=== PATIENT | female | born 1945 | race Caucasian/White ===

== ENCOUNTER → 2018-01-17 12:59 | Outpatient (CLI) | payer MEDICARE, OTHER, SELFPAY ==
--- NOTE | 2018-01-17 | DI.NM.S_ITS ---
PROCEDURE: NM RENAL FUNCTION W LASIX RADIOPHARMACEUTICAL: 9.7 mCi Tc-99m MAG3 IV and 40 mg furosemide IV. INDICATIONS: HYDRONEPHOSIS TECHNIQUE: The patient was hydrated orally before the examination was begun. After intravenous administration of Tc-99m MAG3, posterior abdominal radionuclide angiogram and sequential (1 minute each frame) renal images were obtained. A time-activity curve for each kidney was generated and analyzed. To evaluate for obstruction, the patient was given 40 mg furosemide via slow intravenous injection after the start of the examination. Sequential images were obtained for up to an additional 20 minutes. COMPARISON: [facility], MR, L-SPINE WITHOUT CONTRAST, 08/07/2012, 13:30. [facility], CT, KIDNEY/ URETER/BLADDER, 04/08/2017, 16:51. [facility], US, ABDOMEN COMPLETE, 11/15/2017, 7:27. FINDINGS: Perfusion: There is normal vascular flow to both kidneys. Morphology: Both kidneys are normal in size and shape. The right renal pelvis is mildly dilated. The left renal pelvis is nondilated. The ureters and bladder fill with tracer, and appear normal. Function: Both kidneys demonstrate normal cortical tracer uptake, with [id number] activity ranging from 3 to 5 minutes. The right kidney contributes 44% of total renal function. The left kidney contributes 56% of total renal function. Lasix stimulation: After diuretic administration, there is prompt clearance of tracer activity from the renal collecting systems in both kidneys. The half-time of emptying of tracer activity from the right pelvicaliceal system is 7.1 minutes. The half-time of emptying from the left pelvicaliceal system is a 8.7 minutes. Normal emptying half-times are less than 10 minutes; borderline ranges are from 10 to 20 minutes. IMPRESSION: 1. Mildly dilated right renal collecting system. The T1/2 after furosemide administration is normal, arguing against right renal obstruction. 2. Normal left renal function. 3. Right kidney contributes 44% of total renal function; left kidney contributes 56% of total renal function. Dictated by: Chitra Graff M.D. on 01/17/2018 at 15:06 Approved by: Chitra Graff M.D. on 01/17/2018 at 15:19
--- NOTE | 2018-01-17 13:03 | DI.RAD.S_ITS ---
PROCEDURE: XR HIP W PEL IF DONE RT 2V INDICATIONS: 72 year-old female with right hip pain after fall. TECHNIQUE: AP pelvis with lateral view(s) of the right hip(s). COMPARISON: None. FINDINGS: Bones: No fractures or dislocations. Pelvic ring appears intact. No hip joint degeneration. No suspicious bony lesions. Soft tissues: The visualized bowel gas pattern is normal. No suspicious soft tissue calcifications. IMPRESSION: No acute bony injuries of the right hip region. Dictated by: Jasiel Mota M.D. on 01/17/2018 at 14:20 Approved by: Jasiel Mota M.D. on 01/17/2018 at 14:21
== END ==
PROVIDERS: Family Provider Family Medicine; PCP Family Medicine; Visit Provider Specialist
DX: M25.551 Pain in right hip (principal)
CPT/HCPCS: 73502; 78708; A9562

== ENCOUNTER 2018-01-29 15:13 | Observation (INO) | payer MEDICARE, OTHER, SELFPAY ==
[2018-01-09 13:59] VITALS: BMI 32.8
[2018-01-28] VITALS (13 sets, daily range): BP systolic 106–144; BP diastolic 60–90; PULSE 60–81; RESP 13–18; TEMP 36.1–36.8; O2SAT 92–100; BMI 33.6
--- NOTE | 2018-01-28 | DI.RAD.S_ITS ---
PROCEDURE: XR KNEE LT 1TO2V INDICATIONS: POST OP KNEE FILMS TECHNIQUE: 2 view(s) of the knee acquired. COMPARISON: [facility] MEÑO Mcadams, XR KNEE ARTHRITIC SERIES , 11/15/2017, 11:42. FINDINGS: Bones: Patient is status post left knee joint arthroplasty. Hardware components are in expected positions. Visualized bony structures are intact. Soft tissues: Overlying postoperative changes are noted. IMPRESSION: Expected postsurgical change for left knee arthroplasty. Dictated by: Kalani Hendricks MD, PhD on 01/28/2018 at 14:40 Approved by: Kalani Hendricks MD, PhD on 01/28/2018 at 14:41
[2018-01-28] MEDS: LACTATED RINGERS 1,000 ML 42 ML IV (08:57)
[2018-01-28] MEDS: VANCOMYCIN 1,000 MG/200 ML FROZ.PIGGY 200 MG IV (10:00)
--- NOTE | 2018-01-28 10:17 | SUR.OPER ---
Supine on padded OR bed. Pillow under head, arms secured on padded armboards <90 degree abduction. Safety belt across torso. Non-operative leg secured with tape over blanket over lower leg. Operative leg secured in DeMayo/Aamir positioner. Foam padded brace at thigh of operative leg.
[2018-01-28] MEDS: CEFAZOLIN 2 GM/100 ML FROZ.PIGGY IV ×2 (11:40→21:13)
[2018-01-28] MEDS: BUPIVACAINE 0.25% W/ EPI 50 ML VIAL INJ (12:47)
[2018-01-28] MEDS: BUPIVACAINE LIPOSOME 266 MG/20 ML VIAL SUBCUT (12:48)
[2018-01-28] MEDS: POVIDONE-IODINE 15 ML, SODIUM CHLORIDE 0.9% 250 ML TOP (12:55)
--- NOTE | 2018-01-28 14:47 | PM.OP.1 ---
Operative Date/Time/Diagnoses - Date of procedure: 01/28/18 Time of procedure: 12:47 Pre-op diagnosis: Left knee OA Post-op diagnosis: same Procedure & Clinicians Procedure: Left total knee arthroplasty Indications: The patient has had progressively worsening left knee pain with radiographic changes consistent with arthritis. Non-operative management has failed and the patient has requested total knee replacement. The risks, benefits and alternatives to surgery were discussed with the patient prior to proceeding. Risks discussed included, but were not limited to, failure to relieve pain, stiffness, infection, nerve damage, deep venous thrombosis, pulmonary embolism, stroke, coma, heart attack, permanent paralysis and , as well as the potential need for eventual revision of the prosthetic. Surgeon: Claudia Miramontes Fountain Roller Assembler: Bel Falcon Anesthesia Type: General and Spinal Operative Notes Findings: Severe left knee OA, good stability Closure Type: primary Specimen(s): none sent Implants & Drains: Left total knee Miramontes and Nephew Journey BCS 2 size 4 femur, size 4 tibia, +9 poly, 32 by 7-1/2 mm patella Applied: drain(s) Estimated Blood Loss (mL): 250 Blood products transfused: none Tourniquet time (min): 40 Procedure in detail: The patient was seen in the pre-operative area, where the patient identified the left knee as the operative site and this was marked with my initials. The patient received pre-operative antibiotics, and was taken to the operating room and placed on the operative table in the supine position. After satisfactory anesthesia, a multimedia producer out was performed. The left leg was encircled with a tourniquet about the proximal thigh, and the leg was prepared from the toes to the tourniquet with ChloroPrep in the usual fashion and draped through sterile drapes. The leg was elevated and exsanguinated with Eschmark bandage and the tourniquet inflated to [250] mmHg pressure. The knee was approached through an approximately 18 cm incision centered over the patella and carried into the knee through a medial parapatellar arthrotomy. A Portion of the medial and lateral meniscus was resected. Soft tissue was carefully mobilized around the patella the patella was measured with a caliper. Bone was resected from the patella and the patellar height was reconstituted with up an appropriate sized patellar component. A cover was then placed on the patella. A small amount of additional medial and lateral meniscus was resected. The visionare guide fit well to the distal femur. It looked like an appropriate distal femoral cut and the cut was made without difficulty. The rotation was assessed and the appropriate size femoral guide was placed on the distal femur and finishing cuts were made. There is no evidence of notching. The anterior, posterior and chamfer cuts were then made. The posterior osteophytes and soft tissues were then removed. The posterior capsule was injected with part of a mixture of 60 ml 0.25% Marcaine mixed with 20 ml Exparel for post operative pain control. The remainder of this mixture was injected into the capsule and subcutaneous tissues during cement curing. The tibia was prepared and the visionaire guide fit well to the distal tibia. The rotation was assessed. The patient was placed in extension residual medial and lateral meniscus as well as any residual bone was carefully resected. [No] additional tibia was resected. Hemostasis was achieved especially posteriorly. Additional local was injected into the posterior capsule. The extension gap was assessed and additional releases for gap balancing were performed as necessary. It was checked with the gap grocery store courtesy clerk. The femoral component was trial was placed and the notch was finished. Trial tibial and femoral components were then placed and the knee placed through a range of motion. Range of motion was [0-130], with good stability throughout the range. The trials were then removed, and the tibia was finished. The bone was prepared with pulsatile lavage, and dried with a sponge. Cement was applied and the final prosthetics placed. Excess cement was removed during and after cement curing. A brief Betadine soak was performed. After confirming there was no extruded cement posteriorly, the final tibial insert was placed. The knee was copiously irrigated and the tourniquet deflated. Hemostasis was obtained with the [Aquamantys system]. A drain was placed and brought out superolaterally. The capsule was closed with interrupted # 1 black braided suture. The subcutaneous layer was closed with barbed sutures, and the skin with a running 3-0 V-Lock suture and Surgical glue. An Aquacel Ag dressing was applied and the patient was taken to recovery having tolerated the procedure well. Complications: none Condition: stable Disposition: Acute Care Plan for aftercare: The patient will be maintained on a standard total knee replacement protocol with weight bearing as tolerated. The patient will receive aspirin and sequential compression devices for DVT prophylaxis. The patient will be discharged home when safe for the home environment.
--- NOTE | 2018-01-28 14:54 | SUR.PHASEI ---
stable pacu stay, drank coffee, report called and pt transported to room 216.
--- NOTE | 2018-01-28 14:56 | PM.PREOP ---
Pre-operative Note Interval Note Pre-op Check: History & Physical Reviewed by Physician
--- NOTE | 2018-01-28 14:56 | P.OP_ITS ---
Operative Date/Time/Diagnoses - Date of procedure: 01/28/18 Time of procedure: 12:47 Pre-op diagnosis: Left knee OA Post-op diagnosis: same Procedure & Clinicians Procedure: Left total knee arthroplasty Indications: The patient has had progressively worsening left knee pain with radiographic changes consistent with arthritis. Non-operative management has failed and the patient has requested total knee replacement. The risks, benefits and alternatives to surgery were discussed with the patient prior to proceeding. Risks discussed included, but were not limited to, failure to relieve pain, stiffness, infection, nerve damage, deep venous thrombosis, pulmonary embolism, stroke, coma, heart attack, permanent paralysis and , as well as the potential need for eventual revision of the prosthetic. Surgeon: Claudia Miramontes Communication Spec: Bel Falcon Anesthesia Type: General and Spinal Operative Notes Findings: Severe left knee OA, good stability Closure Type: primary Specimen(s): none sent Implants & Drains: Left total knee Miramontes and Nephew Journey BCS 2 size 4 femur, size 4 tibia, +9 poly, 32 by 7-1/2 mm patella Applied: drain(s) Estimated Blood Loss (mL): 250 Blood products transfused: none Tourniquet time (min): 40 Procedure in detail: The patient was seen in the pre-operative area, where the patient identified the left knee as the operative site and this was marked with my initials. The patient received pre-operative antibiotics, and was taken to the operating room and placed on the operative table in the supine position. After satisfactory anesthesia, a multimedia manager out was performed. The left leg was encircled with a tourniquet about the proximal thigh, and the leg was prepared from the toes to the tourniquet with ChloroPrep in the usual fashion and draped through sterile drapes. The leg was elevated and exsanguinated with Eschmark bandage and the tourniquet inflated to [250] mmHg pressure. The knee was approached through an approximately 18 cm incision centered over the patella and carried into the knee through a medial parapatellar arthrotomy. A Portion of the medial and lateral meniscus was resected. Soft tissue was carefully mobilized around the patella the patella was measured with a caliper. Bone was resected from the patella and the patellar height was reconstituted with up an appropriate sized patellar component. A cover was then placed on the patella. A small amount of additional medial and lateral meniscus was resected. The visionare guide fit well to the distal femur. It looked like an appropriate distal femoral cut and the cut was made without difficulty. The rotation was assessed and the appropriate size femoral guide was placed on the distal femur and finishing cuts were made. There is no evidence of notching. The anterior, posterior and chamfer cuts were then made. The posterior osteophytes and soft tissues were then removed. The posterior capsule was injected with part of a mixture of 60 ml 0.25% Marcaine mixed with 20 ml Exparel for post operative pain control. The remainder of this mixture was injected into the capsule and subcutaneous tissues during cement curing. The tibia was prepared and the visionaire guide fit well to the distal tibia. The rotation was assessed. The patient was placed in extension residual medial and lateral meniscus as well as any residual bone was carefully resected. [No] additional tibia was resected. Hemostasis was achieved especially posteriorly. Additional local was injected into the posterior capsule. The extension gap was assessed and additional releases for gap balancing were performed as necessary. It was checked with the gap account maintenance representative. The femoral component was trial was placed and the notch was finished. Trial tibial and femoral components were then placed and the knee placed through a range of motion. Range of motion was [ 0-130], with good stability throughout the range. The trials were then removed, and the tibia was finished. The bone was prepared with pulsatile lavage, and dried with a sponge. Cement was applied and the final prosthetics placed. Excess cement was removed during and after cement curing. A brief Betadine soak was performed. After confirming there was no extruded cement posteriorly, the final tibial insert was placed. The knee was copiously irrigated and the tourniquet deflated. Hemostasis was obtained with the [Aquamantys system]. A drain was placed and brought out superolaterally. The capsule was closed with interrupted # 1 black braided suture. The subcutaneous layer was closed with barbed sutures, and the skin with a running 3 -0 V-Lock suture and Surgical glue. An Aquacel Ag dressing was applied and the patient was taken to recovery having tolerated the procedure well. Complications: none Condition: stable Disposition: Acute Care Plan for aftercare: The patient will be maintained on a standard total knee replacement protocol with weight bearing as tolerated. The patient will receive aspirin and sequential compression devices for DVT prophylaxis. The patient will be discharged home when safe for the home environment.
[2018-01-28] MEDS: LACTATED RINGERS 1,000 ML 125 ML IV (16:03)
--- NOTE | 2018-01-28 16:13 | PC.NURSE ---
admitted to acute care rm 216, denies pain, reported numbness to bilateral legs due to epidural but stating sensation and movement to be coming back. Able to wiggle toes on demand, circulation and movement intact. Educated to room and call light, belongings within reach. Hemovac present, and clamped - clamp removed at 1545 per order.
[2018-01-28] MEDS: SENNOSIDES 8.6 MG TABLET 17.2 MG PO (21:14)
[2018-01-28] MEDS: METOPROLOL 25 MG TABLET PO (21:16)
[2018-01-28] MEDS: DOCUSATE 100 MG CAPSULE PO (21:16)
[2018-01-28] MEDS: clonazePAM 0.5 MG TABLET 1 MG PO (21:28)
--- NOTE | 2018-01-28 23:41 | PC.NURSE ---
Sandra shift- Pt did not receive Aspirin 81mg. Unable to document on EMAR. Pt soes take this medication at home, but reports allergy to NSAIDs. Pt reports takes 375mg ASA along with carafate for pain, at home. Pt refused scheduled tylenol, reports does not work for me. Denies pain this shift. Using bed pain to boid clear yellow urine. L wrist LR @ 125 along with ABO's. Left knee aquacell/conrado wrap CDI. SCD's on. Advanced diet to reg for dinner, tolerated well. Call light in reach.
[2018-01-28] MEDS: OXYCODONE IR 10 MG TABLET PO (23:47)
[2018-01-29] MEDS: LACTATED RINGERS 1,000 ML 125 ML IV (00:17)
--- NOTE | 2018-01-29 01:21 | PC.NURSE ---
Pt reporting L knee pain 4/10. Medicated with Percolone. Orho checks with good CMS. Drsg C,D,I to L knee. Voiding per bedpan. See assessment. Pt reorting pain relief to 0/10 after analgesia.
[2018-01-29 03:27] VITALS: BP 101/56; PULSE 68; RESP 16; TEMP 36.6; O2SAT 95
[2018-01-29] MEDS: OXYCODONE IR 10 MG TABLET PO ×3 (03:39→21:18)
[2018-01-29] MEDS: CEFAZOLIN 2 GM/100 ML FROZ.PIGGY IV (03:41)
--- NOTE | 2018-01-29 05:43 | PC.NURSE ---
Pt declines scheduled Acetaminophen stating that this analgesia does not work for her. Pt states that Percolone is reducing surgical pain and joint pain in hip and neck from recent fall at home.
[2018-01-29 06:15] LABS: Hematocrit 36.4 % (36-46); Hemoglobin 12.3 g/dL (12.0-16.0)
[2018-01-29 07:30] VITALS: BP 145/85; PULSE 79; RESP 16; TEMP 36.3; O2SAT 96
--- NOTE | 2018-01-29 08:22 | P.PN_ITS ---
Subjective Date Patient Seen: 01/29/18 Time Patient Seen: 08:19 Interval history: POD #1 status post left total knee arthroplasty with Dr. Miramontes. She did have some increased pain over the night. She has not been up with physical therapy it. She has some acid reflux after eating dinner, and requesting some medication. She has been urinating well. She still has drain in place. Exam Vital Signs (past 8 hours): Vital Signs - 8 hr 3 01/29/18 03:27 Temperature 97.8 F Pulse Rate 68 Respiratory Rate 16 Blood Pressure 101/56 L Pulse Oximetry 95 Pulse Oximetry 95 Oxygen Delivery Method Room Air Narrative Exam Narrative: Patient lying in bed in no acute distress. She is alert and oriented x3. Calves are soft, compressible, nontender bilaterally. Pulses are symmetrical. Left knee dressing CDI, Coban in place. Hemovac drain in place. Sensation intact to light touch throughout bilateral lower extremities. She is able to actively dorsiflex and plantar flex. Objective Labs Result Diagrams: 01/29/18 05:42 Labs: Laboratory Results - last 24 hr 01/29/18 05:42 Hgb 12.3 Hct 36.4 Assessment & Plan Post-op (1) Fibromyalgia: Onset Date: 01/27/16 Current Visit: No Status: None (2) S/P total knee arthroplasty: Current Visit: Yes Status: Acute Postoperative Procedures Operation Date: 01/28/18 10:45 Actual Procedures Side Surgeon p Total Knee Arthroplasty Left Claudia Miramontes MD POD #1 status post left total knee arthroplasty with Dr. Miramontes. Patient will mobilize with PT today. Continue ASA for DVT prophylaxis. Will start antacid. DC Hemovac once drainage output is less than 50 mL. Patient will likely DC in next 1-2 days once mobilizing safely, and adequate pain control. Time Spent With Patient less than 15 minutes
[2018-01-29] MEDS: ASPIRIN EC 81 MG TABLET PO ×2 (09:19→21:18)
[2018-01-29] MEDS: CHOLECALCIFEROL (VITAMIN D3) 1,000 UNIT TABLET 2000 UNIT PO (09:19)
[2018-01-29] MEDS: METOPROLOL 25 MG TABLET PO ×2 (09:20→21:18)
[2018-01-29] MEDS: HYDROCODONE/ACET 5/325 TABLET 1 TAB PO (09:20)
[2018-01-29] MEDS: DOCUSATE 100 MG CAPSULE PO ×2 (09:20→21:18)
[2018-01-29] MEDS: clonazePAM 0.5 MG TABLET 1 MG PO (09:21)
[2018-01-29 12:10] VITALS: BP 131/69; PULSE 69; RESP 16; TEMP 37; O2SAT 94
--- NOTE | 2018-01-29 12:20 | PT.IIE ---
Current Diagnoses Unilateral primary osteoarthritis, left knee (01/28/18) Fibromyalgia (01/28/18) Presence of unspecified artificial knee joint (01/28/18) Surgery Performed Operation Date: 01/28/18 10:45 Actual Procedures p Total Knee Arthroplasty(Left) - Claudia Miramontes MD Surgical History (Last Updated 01/09/18 @ 14:31 by Gwen Fan RN) H/O arthroscopic knee surgery (Acute) Hx of thumb surgery (Acute) S/P foot surgery, right (Acute) Status post arthroscopy Status post hysterectomy Status post tubal ligation Medical History (Last Updated 01/09/18 @ 14:31 by Gwen Fan RN) Anxiety (Acute) Bilateral cataracts (Acute) Bronchitis (Acute) Compression fracture (Acute) Compression fracture of body of thoracic vertebra (Acute) Gastritis (Acute) Myocardial infarction (Acute) Numbness (Acute) Spinal stenosis (Acute) Physical Therapy Inpatient Evaluation/Re-Eval M1 PT/OT-IP Prior Functional Status Start: 01/29/18 12:11 Freq: NEEDED Status: Active Protocol: Document 01/29/18 12:11 AB (Rec: 01/29/18 12:20 AB [id number]) Medical Review Prior Functional Status Medical History Reviewed Yes Mobility and Gait pt stated that she is independent with all mobilities and ambulation without AD Social History Household Members spouse Living Arrangements House Number of Floors (Floors) One Floor Number of Stairs To Enter/Railing? has 2 small steps to enter: one step with R rail and another threshold step Home Environment Standard Height Toilet Walk in Shower Home Equipment Front Wheel Walker Straight Cane Shower Seat with Backrest Hand Held Shower Grab Bars In Shower Employment Status Retired M2 PT-IP Current Condition Start: 01/29/18 12:11 Freq: NEEDED Status: Active Protocol: Document 01/29/18 12:11 AB (Rec: 01/29/18 12:20 AB [id number]) Physical Therapy Current Condition Current Condition Evaluation Date 01/29/18 Treatment Diagnosis s/p L TKA; difficulty in ambulation Onset Date 01/28/18 M3 PT-IP Subjective Start: 01/29/18 12:11 Freq: NEEDED Status: Active Protocol: Document 01/29/18 12:11 AB (Rec: 01/29/18 12:20 AB [id number]) Subjective Physical Therapy Visit Type Type Initial Evaluation Visit Start Time 10:28 Visit Stop Time 11:15 Total Visit Minutes 47 Number of CERAMIC WORKER Visits 0 Physical Therapy Visit Comments Patient Comments pt agreeable to do therapy Therapy Pain Assessment Pain When Pain Assessed During Mobility Pain Present Pain Present Pain Reported Location Right Knee Intensity 7 Scale Used Numeric (1 - 10) Pain Management Techniques Apply Cold Re-positioning Timing of Activity with Medications M4 PT-IP Mobility and Gait Start: 01/29/18 12:11 Freq: NEEDED Status: Active Protocol: Document 01/29/18 12:11 AB (Rec: 01/29/18 12:20 AB [id number]) PT-Bed Mobility Assessment Supine to Sit Supine to Sit Standby Assistance Sit to Supine Sit to Supine Minimal Assistance PT-Transfer Assessment Sit to and From Stand Sit to and from Stand Maximum Assistance Equipment Transfer Assistive Device Gait Belt Front Wheeled Walker Transfers Transfer Destination Chair Toilet Gait Assessment Gait Gait Assistance Required: Moderate Assistance Distance (Feet) (feet) 20 Able to Maintain Weight Bearing Status Yes During Gait Assistive Devices Assistive Device Gait Belt Front Wheeled Walker Gait Deviations General Gait Pattern Antalgic Decreased Stride Length Decreased Feet Clearance Factors Limiting Gait Function Factors Limiting Gait Function Decreased Activity Tolerance Decreased Strength Limited Range of Motion Pain Poor Balance Poor Safety Awareness PT-Balance Assessment Sitting Balance and Reactions Static Sitting Balance Ability Good Dynamic Sitting Balance Ability Good Standing Balance and Reactions Static Standing Balance Ability Fair Dynamic Standing Balance Ability Fair M5 PT-IP Objective Assessments Start: 01/29/18 12:11 Freq: NEEDED Status: Active Protocol: Document 01/29/18 12:11 AB (Rec: 01/29/18 12:20 AB [id number]) Orientation Orientation/Cognition Level of Alertness Alert Orientation Name Place Situation Gross Range of Motion Lower Extremity ROM Assessment Left Impaired Strength Lower Extremity Strength Assessment Bilaterally Impaired M6 PT-IP Treatment Start: 01/29/18 12:11 Freq: NEEDED Status: Active Protocol: Document 01/29/18 12:11 AB (Rec: 01/29/18 12:20 AB [id number]) Physical Therapy Treatment Education Education Provided Precautions Weight Bearing Status Post-Op Packet Safety M7 PT-IP Assessment and Plan Start: 01/29/18 12:11 Freq: NEEDED Status: Active Protocol: Document 01/29/18 12:11 AB (Rec: 01/29/18 12:20 AB [id number]) PT Summary Assessment and Plan Potential Rehabilitation Potential Fair Status of Condition at Evaluation Evolving Summary Impairments Pain ROM Strength Balance Bed Mobility Transfers Gait Activity Tolerance Assessment Summary pt requiring one person assist with mobility. pt wants to be more independent prior to d /c and stated thta she wants to be sure she can take care of herself when spouse is not around. will conduct caregiver training when appropriate. Goals Bed Mobility Goal Standby Assistance Transfer Goal Standby Assistance Gait Goal Standby Assistance Gait Distance 100 Other Goals up/down 2 steps with R rail ascending Frequency of Treatment Frequency Of Treatment Twice a Day Treatment Plan Physical Therapy Treatment Plan Bed Mobility Training Transfer Training Gait Training Therapeutic Exercise Balance Retraining Post Op Education Discharge Planning Hot or Cold Pack Neuromuscular Re-ed Coordination Retraining Manual Therapy Recommendations To Nursing Amount of Assist Needed 1 Person Assist Discharge Recommendations PT Discharge Recommendations Home with Assistance Outpatient PT Provider Visit Care Team Role Provider Type Doreen Chakraborty MD Family Provider Physician Primary Care Provider Specialty: Family Practice Claudia Miramontes MD Attending Provider Physician Specialty: Orthopedic Surgery
--- NOTE | 2018-01-29 13:33 | CM.DANOTE ---
Addendum entered by Terri Gold LPN 01/29/18 13:48: ([facility] [place] and OT are ordered. Pt reports she has a great deal of pain today and is not yet ready for a d/c to home. She will be staying on until tomorrow. Her has not yet worked on any caregiver training. (he appears supportive but perhaps a bit frail). Pt has been working with Out[facility] and [facility] in [place] for years and has Saturday and Saturday appts all set up, to start 02/04. Have discussed case with Dr. Miramontes this afternoon. P: home when stable for same. Original Note: DCP: assessment: case received, EMR reviewed and met with pt and her . Introduced self and role. DCP template completed with info currently available. Pt is a 72 year old female who admitted yesterday for a planned L TKA. Surgeon: Aleksander Miramontes PCP: Dr. Chakraborty Payer: Medicare and [employer]. UR YSABEL Beard confirms OUTPT/Bed ([place]
[2018-01-29] MEDS: ACETAMINOPHEN 325 MG TABLET 650 MG PO ×2 (14:42→21:18)
[2018-01-29 15:20] VITALS: BP 113/71; PULSE 61; RESP 16; TEMP 36.2
--- NOTE | 2018-01-29 16:25 | PT.IPTN ---
Current Diagnoses Unilateral primary osteoarthritis, left knee (01/29/18) Fibromyalgia (01/29/18) Presence of unspecified artificial knee joint (01/29/18) Surgery Performed Operation Date: 01/28/18 10:45 Actual Procedures p Total Knee Arthroplasty(Left) - Claudia Miramontes MD Physical Therapy Treatment Note M2 PT-IP Current Condition Start: 01/29/18 12:11 Freq: NEEDED Status: Active Protocol: Document 01/29/18 12:11 AB (Rec: 01/29/18 12:20 AB [id number]) Physical Therapy Current Condition Current Condition Evaluation Date 01/29/18 Treatment Diagnosis s/p L TKA; difficulty in ambulation Onset Date 01/28/18 M3 PT-IP Subjective Start: 01/29/18 12:11 Freq: NEEDED Status: Active Protocol: Document 01/29/18 15:30 GGD (Rec: 01/29/18 16:24 GGD [id number]) Subjective Physical Therapy Visit Type Type Treatment Note Visit Start Time 14:55 Visit Stop Time 15:30 Total Visit Minutes 35 Number of PBX TEACHER Visits 1 Physical Therapy Visit Comments Patient Comments Pt needs to use the bathroom Therapy Pain Assessment Pain When Pain Assessed At Rest Pain Present Pain Present Pain Reported Location Right Knee Intensity 3 Scale Used Numeric (1 - 10) Description Burning M4 PT-IP Mobility and Gait Start: 01/29/18 12:11 Freq: NEEDED Status: Active Protocol: Document 01/29/18 15:30 GGD (Rec: 01/29/18 16:24 GGD [id number]) PT-Bed Mobility Assessment Supine to Sit Supine to Sit Standby Assistance Sit to Supine Sit to Supine Minimal Assistance PT-Transfer Assessment Sit to and From Stand Sit to and from Stand Minimal Assistance 1 Person Assistance Use of Upper Extremities Equipment Transfer Assistive Device Gait Belt Front Wheeled Walker Transfers Transfer Destination Bed Toilet Transfer Ability Level of Assist Contact Guard Assistance 1 Person Assistance Gait Assessment Gait Gait Assistance Required: Moderate Assistance Distance (Feet) (feet) 20 Able to Maintain Weight Bearing Status Yes During Gait Assistive Devices Assistive Device Gait Belt Front Wheeled Walker Gait Deviations General Gait Pattern Antalgic Decreased Stride Length Decreased Feet Clearance Factors Limiting Gait Function Factors Limiting Gait Function Decreased Activity Tolerance Decreased Strength Limited Range of Motion Pain Poor Balance Poor Safety Awareness M5 PT-IP Objective Assessments Start: 01/29/18 12:11 Freq: NEEDED Status: Active Protocol: Document 01/29/18 12:11 AB (Rec: 01/29/18 12:20 AB [id number]) Orientation Orientation/Cognition Level of Alertness Alert Orientation Name Place Situation Gross Range of Motion Lower Extremity ROM Assessment Left Impaired Strength Lower Extremity Strength Assessment Bilaterally Impaired M6 PT-IP Treatment Start: 01/29/18 12:11 Freq: NEEDED Status: Active Protocol: Document 01/29/18 15:30 GGD (Rec: 01/29/18 16:24 GGD [id number]) Physical Therapy Treatment Exercises Exercises Ankle Pumps Gluteal Sets Quad Sets Heel Slides Short Arc Quads M7 PT-IP Assessment and Plan Start: 01/29/18 12:11 Freq: NEEDED Status: Active Protocol: Document 01/29/18 15:30 GGD (Rec: 01/29/18 16:24 GGD [id number]) PT Summary Assessment and Plan Summary Assessment Summary PT needed less assist with sit to stand and bed mobility. She had increase pain with mobility and unable to tolerated progression of gait. Frequency of Treatment Frequency Of Treatment Twice a Day Treatment Plan Other Recommendations and Next Treatment gait, bed mobility and stairs Focus before D/C Recommendations To Nursing Amount of Assist Needed 1 Person Assist Discharge Recommendations PT Discharge Recommendations Home with Assistance Outpatient PT
[2018-01-29 20:18] VITALS: BP 128/75; PULSE 76; RESP 18; TEMP 37.2
[2018-01-29] MEDS: SENNOSIDES 8.6 MG TABLET 17.2 MG PO (21:18)
[2018-01-30 00:15] VITALS: BP 97/63; PULSE 69; RESP 14; TEMP 36.3; O2SAT 94
[2018-01-30] MEDS: clonazePAM 0.5 MG TABLET 1 MG PO ×2 (00:46→09:43)
[2018-01-30] MEDS: OXYCODONE IR 10 MG TABLET PO ×4 (01:11→13:01)
--- NOTE | 2018-01-30 04:20 | PC.NURSE ---
at aprx. 0030 pt got self out of bed after awakening from sleep with urgent feeling to urinate and did not want to get bed wet. she had turned recreation teacher light but both assigned RN and SITE RELIABILITY ENGINEER were busy in other patient rooms. pt had turned on her call light but bed alarm had not been set. Pt states waking up and just thinking I need to get to the bathroom! and then got self up and amb w/o FWW into BR, leaking urine on the way there, states she slipped on the wet floor on the way out of the BR landing on her knees, mainly on the right. she then report scooted myself to the chair and used it to stand up and walk over to the bed. Pt found sitting in her bed by SITE RELIABILITY ENGINEER w/RN shortly after. No outward s/s of injury noted,pt denies incr'd or new area of pain; but tearful and embarrassed that she had fallen and fearful that she may have injured her operative knee. no change in rom of L knee,no incr'd pain to right knee. pt request her anxiety med and medicated w/1mg clonopin per prn order. ice pack placed applied to l knee, medicated w/10mg oxycodone per order for 6-7/10 pain(same rating as since as it has been prior to fall. bed alarm set,reminded to call, bsc used instead of amb all the way to br. ice pack applied to knee, calf scd's placed, mateo pad in place for pt comfort. notified both coordinator, Ena and MD recreation teacher, Radha Coleman of incident.
[2018-01-30 05:07] VITALS: BP 136/79; PULSE 69; RESP 16; TEMP 36.1; O2SAT 95
[2018-01-30] MEDS: ACETAMINOPHEN 325 MG TABLET 650 MG PO (05:16)
[2018-01-30 08:30] VITALS: BP 132/68; PULSE 72; RESP 16; TEMP 36.4; O2SAT 94
[2018-01-30] MEDS: CHOLECALCIFEROL (VITAMIN D3) 1,000 UNIT TABLET 2000 UNIT PO (09:42)
[2018-01-30] MEDS: DOCUSATE 100 MG CAPSULE PO (09:42)
[2018-01-30] MEDS: ASPIRIN EC 81 MG TABLET PO (09:42)
[2018-01-30] MEDS: METOPROLOL 25 MG TABLET PO (09:42)
--- NOTE | 2018-01-30 10:09 | PM.DS.1 ---
History of Present Illness Date Patient Seen: 01/30/18 Time Patient Seen: 10:00 Chief complaint: *OPB* [id number] LEFT TOTAL KNEE ARTHROPLASTY *OPB* Narrative: Patient is status post left TKA postop day 2. She is doing well, however, she had an unwitnessed fall overnight. No bed alarm was on. Denies any injury during fall. Dressing on knee is clean dry and intact. Hemovac drain has less than 50 cc in it. Patient would like to go home. PT recommendation is home. Pain is controlled and VTE prophylaxis is ASA 81 mg b.i.d. Discharge Providers Date of admission: 01/29/18 15:13 Primary care physician: Doreen Chakraborty MD Consults: 01/28/18 14:51 Consult to Discharge Planning Routine Comment: Consult to Physical Therapy Evaluate & Treat Comment: Physician Instructions: postop TKA protocol Consult to Respiratory Therapy Evaluate & Treat Comment: Physician Instructions: Evaluate and treat 01/30/18 08:32 Consult to Occupational Therapy Evaluate & Treat Comment: Physician Instructions: Evaluate and treat Discharge provider: Janelle Milton PA-C Summary Discharge Diagnosis: Left knee osteoarthritis Hospital Course: Patient is admitted status post left TKA on 01/28/2018. No major events during surgery. Patient did have an unwitnessed fall early on the morning of 01/30/2018. Patient was uninjured at that time. Patient cleared by PT to go home. Ready for discharge on 01/30/2018. Status at Discharge Cognitive/behavioral status at discharge: Alert and oriented x4. Functional status at discharge: uses cane/walker Overall status at discharge: patient is progressing back to baseline Time Spent with Patient Less than 30 minutes Exam Vital Signs (past 8 hours): Vital Signs - 8 hr 01/30/18 05:07 01/30/18 08:30 Temperature 97 F L 97.6 F Pulse Rate 69 72 Respiratory Rate 16 16 Blood Pressure 136/79 H 132/68 H Pulse Oximetry 95 94 Pulse Oximetry 94 Oxygen Delivery Method Room Air Oxygen Flow Rate 0 Narrative Exam Narrative: Patient is well-developed well-nourished in no acute distress. Patient alert oriented x3. On exam patient surgical dressing on left knee is clean dry and intact calf is soft and supple. She has full range of motion of the ankle and foot. Hemovac is less than 50 mL ouput. She is neurovascularly intact in left lower extremity. Objective Labs Result Diagrams: 01/29/18 05:42 Discharge Plan Discharge Plan Patient Disposition: Home, Self-Care Discharge comment: d/c once cleared by PT Discharge Med Rec/Prescriptions Prescriptions: New aspirin 81 mg Tablet,Delayed Release (Dr/Ec) 81 mg PO BID Qty: 0 RF: 0 hydrocodone-acetaminophen 5-325 mg Tablet 1 tab PO Q4HR PRN (Reason: Pain, Moderate) Qty: 0 RF: 0 ondansetron 4 mg Tablet,Disintegrating 4 mg PO Q8HR PRN (Reason: Nausea) Qty: 0 RF: 0 Continue cholecalciferol (vitamin D3) [Vitamin D3] 2,000 UNIT tablet 1 tab PO QDAY Qty: 90 RF: 3 calcium citrate-vitamin D3 [Citracal + D Petites] 950 MG/250 IU tablet 1 tab PO QDAY Qty: 90 RF: 3 black cohosh root extract 40 MG capsule 500 mg PO DAILY Qty: 0 RF: 0 [D-Mannose/Cranberry] 1 dose PO DIRECTED Qty: 0 RF: 0 [garden of life ] 1 dose PO DIRECTED Qty: 0 RF: 0 metoprolol tartrate 25 mg tablet 25 mg PO BID Qty: 60 RF: 2 hydrocodone-acetaminophen [[place]] 5-325 mg tablet 1 tab PO QDAY Qty: 30 RF: 0 clonazepam 1 mg tablet 0.5 - 1 tab PO BID PRN (Reason: anxiety) RF: 0 albuterol sulfate [Ventolin HFA] 90 MCG/PUFF HFA aerosol inhaler 1 - 2 puff INH EVERY 4-6 HR PRN (Reason: sob) RF: 0 sucralfate 1 GM tablet 1 gm PO ACHS PRN (Reason: Nausea) RF: 0 Discontinued aspirin 325 mg Tablet 325 mg PO DAILY RF: 0 Follow up/Referrals: [facility] [Provider Group] - 02/03/18 1:00 pm (with Kalyn Jack at the [email or web address] office.) Provider Discharge Instructions Diet: Diet as Tolerated Activity: WBAT as tolerated, elevate operative leg while sitting. Use walker until weaned off of it by PT Cold/Heat Therapy: Apply ice for 20 minutes at a time hourly while awake. Wound Care Report to your healthcare provider any signs of infection, such as:: chills, fever, night sweats, increased pain and unusual drainage Visit Report/Discharge Packet Instructions: DI for Knee Replacement Discharge Data Primary Care Provider: Doreen Chakraborty Attending Provider: Claudia Miramontes Admit Date/Time: 01/29/18 15:13 Quality VTE Deep Vein Thrombosis/Pulmonary Embolism Present on Admission: No
--- NOTE | 2018-01-30 10:14 | P.DS_ITS ---
History of Present Illness Date Patient Seen: 01/30/18 Time Patient Seen: 10:00 Chief complaint: *OPB* [id number] LEFT TOTAL KNEE ARTHROPLASTY *OPB* Narrative: Patient is status post left TKA postop day 2. She is doing well, however, she had an unwitnessed fall overnight. No bed alarm was on. Denies any injury during fall. Dressing on knee is clean dry and intact. Hemovac drain has less than 50 cc in it. Patient would like to go home. PT recommendation is home. Pain is controlled and VTE prophylaxis is ASA 81 mg b.i.d. Discharge Providers Date of admission: 01/29/18 15:13 Primary care physician: Doreen Chakraborty MD Consults: 01/28/18 14:51 Consult to Discharge Planning Routine Comment: Consult to Physical Therapy Evaluate & Treat Comment: Physician Instructions: postop TKA protocol Consult to Respiratory Therapy Evaluate & Treat Comment: Physician Instructions: Evaluate and treat 01/30/18 08:32 Consult to Occupational Therapy Evaluate & Treat Comment: Physician Instructions: Evaluate and treat Discharge provider: Janelle Milton PA-C Summary Discharge Diagnosis: Left knee osteoarthritis Hospital Course: Patient is admitted status post left TKA on 01/28/2018. No major events during surgery. Patient did have an unwitnessed fall early on the morning of 01/30/2018. Patient was uninjured at that time. Patient cleared by PT to go home. Ready for discharge on 01/30/2018. Status at Discharge Cognitive/behavioral status at discharge: Alert and oriented x4. Functional status at discharge: uses cane/walker Overall status at discharge: patient is progressing back to baseline Time Spent with Patient Less than 30 minutes Exam Vital Signs (past 8 hours): Vital Signs - 8 hr 3 01/30/18 05:07 01/30/18 08:30 Temperature 97 F L 97.6 F Pulse Rate 69 72 Respiratory Rate 16 16 Blood Pressure 136/79 H 132/68 H Pulse Oximetry 95 94 Pulse Oximetry 94 Oxygen Delivery Method Room Air Oxygen Flow Rate 0 Narrative Exam Narrative: Patient is well-developed well-nourished in no acute distress. Patient alert oriented x3. On exam patient surgical dressing on left knee is clean dry and intact calf is soft and supple. She has full range of motion of the ankle and foot. Hemovac is less than 50 mL ouput. She is neurovascularly intact in left lower extremity. Objective Labs Result Diagrams: 01/29/18 05:42 Discharge Plan Discharge Plan Patient Disposition: Home, Self-Care Discharge comment: d/c once cleared by PT Discharge Med Rec/Prescriptions Prescriptions: New aspirin 81 mg Tablet,Delayed Release (Dr/Ec) 81 mg PO BID Qty: 0 RF: 0 hydrocodone-acetaminophen 5-325 mg Tablet 1 tab PO Q4HR PRN (Reason: Pain, Moderate) Qty: 0 RF: 0 ondansetron 4 mg Tablet,Disintegrating 4 mg PO Q8HR PRN (Reason: Nausea) Qty: 0 RF: 0 Continue cholecalciferol (vitamin D3) [Vitamin D3] 2,000 UNIT tablet 1 tab PO QDAY Qty: 90 RF: 3 calcium citrate-vitamin D3 [Citracal + D Petites] 950 MG/250 IU tablet 1 tab PO QDAY Qty: 90 RF: 3 black cohosh root extract 40 MG capsule 500 mg PO DAILY Qty: 0 RF: 0 [D-Mannose/Cranberry] 1 dose PO DIRECTED Qty: 0 RF: 0 [garden of life ] 1 dose PO DIRECTED Qty: 0 RF: 0 metoprolol tartrate 25 mg tablet 25 mg PO BID Qty: 60 RF: 2 hydrocodone-acetaminophen [[place]] 5-325 mg tablet 1 tab PO QDAY Qty: 30 RF: 0 clonazepam 1 mg tablet 0.5 - 1 tab PO BID PRN (Reason: anxiety) RF: 0 albuterol sulfate [Ventolin HFA] 90 MCG/PUFF HFA aerosol inhaler 1 - 2 puff INH EVERY 4-6 HR PRN (Reason: sob) RF: 0 sucralfate 1 GM tablet 1 gm PO ACHS PRN (Reason: Nausea) RF: 0 Discontinued aspirin 325 mg Tablet 325 mg PO DAILY RF: 0 Follow up/Referrals: [facility] [Provider Group] - 02/03/18 1:00 pm (with Kalyn Jack at the [employer] office.) Provider Discharge Instructions Diet: Diet as Tolerated Activity: WBAT as tolerated, elevate operative leg while sitting. Use walker until weaned off of it by PT Cold/Heat Therapy: Apply ice for 20 minutes at a time hourly while awake. Wound Care Report to your healthcare provider any signs of infection, such as:: chills, fever, night sweats, increased pain and unusual drainage Visit Report/Discharge Packet Instructions: DI for Knee Replacement Discharge Data Primary Care Provider: Doreen Chakraborty Attending Provider: Claudia Miramontes Admit Date/Time: 01/29/18 15:13 Quality VTE Deep Vein Thrombosis/Pulmonary Embolism Present on Admission: No
--- NOTE | 2018-01-30 10:55 | PT.IPTN ---
Current Diagnoses Unilateral primary osteoarthritis, left knee (01/29/18) Fibromyalgia (01/29/18) Presence of unspecified artificial knee joint (01/29/18) Surgery Performed Operation Date: 01/28/18 10:45 Actual Procedures p Total Knee Arthroplasty(Left) - Claudia Miramontes MD Physical Therapy Treatment Note M2 PT-IP Current Condition Start: 01/29/18 12:11 Freq: NEEDED Status: Active Protocol: Document 01/29/18 12:11 AB (Rec: 01/29/18 12:20 AB [id number]) Physical Therapy Current Condition Current Condition Evaluation Date 01/29/18 Treatment Diagnosis s/p L TKA; difficulty in ambulation Onset Date 01/28/18 M3 PT-IP Subjective Start: 01/29/18 12:11 Freq: NEEDED Status: Active Protocol: Document 01/30/18 10:55 GGD (Rec: 01/30/18 12:31 GGD [email or web address]) Subjective Physical Therapy Visit Type Type Treatment Note Visit Start Time 10:15 Visit Stop Time 10:55 Total Visit Minutes 40 Number of GLOVE STITCHER Visits 2 Physical Therapy Visit Comments Patient Comments Pt states she feels the same, and is sorry about the fall over night. Therapy Pain Assessment Pain When Pain Assessed At Rest Pain Present Pain Present Pain Reported Location Right Knee Intensity 2 Scale Used Numeric (1 - 10) Description Burning M4 PT-IP Mobility and Gait Start: 01/29/18 12:11 Freq: NEEDED Status: Active Protocol: Document 01/30/18 10:55 GGD (Rec: 01/30/18 12:31 GGD [email or web address]) PT-Bed Mobility Assessment Supine to Sit Supine to Sit Standby Assistance Scooting Scooting to Edge of Bed Independent PT-Transfer Assessment Sit to and From Stand Sit to and from Stand Contact Guard Assistance Use of Upper Extremities Equipment Transfer Assistive Device Gait Belt Front Wheeled Walker Transfers Transfer Destination Chair Transfer Ability Level of Assist Contact Guard Assistance 1 Person Assistance Gait Assessment Gait Gait Assistance Required: Contact Guard Assist Distance (Feet) (feet) 50 Assistive Devices Assistive Device Gait Belt Front Wheeled Walker Gait Deviations General Gait Pattern Antalgic Decreased Stride Length Decreased Feet Clearance Factors Limiting Gait Function Factors Limiting Gait Function Decreased Activity Tolerance Decreased Strength Limited Range of Motion Pain Poor Balance Poor Safety Awareness Document 01/30/18 10:55 GGD (Rec: 01/30/18 12:31 GGD [email or web address]) Physical Therapy Treatment Exercises Exercises Ankle Pumps Gluteal Sets Quad Sets Heel Slides Short Arc Quads M7 PT-IP Assessment and Plan Start: 01/29/18 12:11 Freq: NEEDED Status: Active Protocol: Document 01/30/18 10:55 GGD (Rec: 01/30/18 12:31 [email or web address]) PT Summary Assessment and Plan Summary Assessment Summary PT improving with bed mobility and gait she need cues for gait pattern and fatigued quickly. Frequency of Treatment Frequency Of Treatment Twice a Day Treatment Plan Other Recommendations and Next Treatment gait, bed mobility Focus Recommendations To Nursing Amount of Assist Needed 1 Person Assist Discharge Recommendations PT Discharge Recommendations Home with Assistance Outpatient PT
--- NOTE | 2018-01-30 16:25 | OT.IP.TRT ---
Current Diagnoses Unilateral primary osteoarthritis, left knee (01/29/18) Fibromyalgia (01/29/18) Presence of unspecified artificial knee joint (01/29/18) Surgery Performed Operation Date: 01/28/18 10:45 Actual Procedures p Total Knee Arthroplasty(Left) - Claudia Miramontes MD Occupational Therapy Treatment Note M3 OT- IP Subjective and Pain Start: 01/30/18 16:23 Freq: Status: Active Protocol: Document 01/30/18 16:24 MICHAEL (Rec: 01/30/18 16:25 [id number] [id number]) OT- Subjective Occupational Therapy Visit Type Type Administrative Note Notes OT referral received but pt discharged before OT assessment occurred.
== END 2018-01-30 13:18 | disposition home or self-care (01) ==
LOC: OR 15:40
PROVIDERS: Admitting Provider Orthopaedic Surgery; Family Provider Family Medicine; PCP Family Medicine; Visit Provider Orthopaedic Surgery
PROC: 0SRD0JZ Replacement of Left Knee Joint with Synthetic Substitute, Open Approach (ICD-10-PCS; CPT 27447; principal; 2018-01-28 10:45)
DX: M17.12 Unilateral primary osteoarthritis, left knee (principal); M79.7 Fibromyalgia; J45.909 Unspecified asthma, uncomplicated; Z87.891 Personal history of nicotine dependence; F41.9 Anxiety disorder, unspecified; I25.2 Old myocardial infarction
CPT/HCPCS: 27447; 36415; 73560; 85014; 85018; 97110; 97116; 97162; 97530; C1776; G0378; C9290; J0690; J1100; J2250; J2274; J2405; J2704; J3370

== ENCOUNTER → 2018-07-08 12:35 | Outpatient (CLI) | payer MEDICARE, OTHER, SELFPAY ==
[2018-01-28 15:35] VITALS: BMI 33.6
== END ==
PROVIDERS: Family Provider Family Medicine; PCP Family Medicine; Visit Provider Family Medicine
DX: M81.0 Age-related osteoporosis without current pathological fracture (principal); Z78.0 Asymptomatic menopausal state; Z82.62 Family history of osteoporosis; Z87.891 Personal history of nicotine dependence
CPT/HCPCS: 77080

== ENCOUNTER → 2018-09-17 10:51 | Outpatient (CLI) | payer MEDICARE, OTHER, SELFPAY ==
[2018-01-28 15:35] VITALS: BMI 33.6
[2018-09-17 11:33] LABS: Hemoglobin A1C% w Est Avg Glu 5.4 % (4.0-6.0)
[2018-09-17 11:53] LABS: BUN Creatinine Ratio 15.7 (6-22); Blood Urea Nitrogen 11 mg/dL (7-17); Calcium 9.2 mg/dL (8.4-10.2); Carbon Dioxide 25 mmol/L (22-32); Chloride 104 mmol/L (98-107); Cholesterol 181 mg/dL (140-199); Estimated Glomerular Filt Rate > 60.0 mL/min (>60); Glucose 104 mg/dL (80-110); HDL Cholesterol 46 mg/dL (40-60); HEMOLYSIS < 15 (0-50); LDL Cholesterol Calculated 118 mg/dL (<100); Potassium 4.5 mmol/L (3.4-5.1); Sodium 140 mmol/L (137-145); Triglycerides 85 mg/dL (35-150)
[2018-09-17 12:17] LABS: Creatinine Urine Random 39.7 mg/dL
[2018-09-17 12:21] LABS: Microalbumi Creatinin Ratio Ur 15.1 ug/mg CR (<30); Microalbumin Urine Random < 0.6 mg/dL (0-1.6)
== END ==
PROVIDERS: PCP Family Medicine; Visit Provider Family Medicine
DX: R73.09 Other abnormal glucose (principal); Z13.220 Encounter for screening for lipoid disorders
CPT/HCPCS: 36415; 80048; 80061; 82043; 82570; 83036

== ENCOUNTER → 2018-10-30 12:33 | Outpatient (CLI) | payer MEDICARE, OTHER, SELFPAY ==
[2018-01-28 15:35] VITALS: BMI 33.6
--- NOTE | 2018-10-30 12:40 | DI.ECHO.S_ITS ---
[place] [facility]---------+ [facility] +---------+ : : [id number] : : : : [id number] : : : : Phone: [phone]---------+ Echocardiogram Report + + :Name: NATALEE AGGARWAL Study Date: 10/30/2018 Height: 64 in : :[facility] Weight: 200 lb : : Gender: Female BSA: 2.0 m2 : :: 1945 Age: 73 yrs BP: 140/80 mmHg: :Reason For Study: AFIB : : Performed By: Bre Locke : :Referring: LORE AWAD : + + Interpretation Summary 1) Normal left ventricular thickness, size, wall motion, and systolic function (EF 60-65%). 2) Normal right ventricular size and function. 3) Diastolic parameters suggest a pseudonormalization pattern, consistent with probable elevated filling pressures. 4) No significant valvular abnormalities. 5) Compared to the Echo done 10/03/2015, no significant change. Procedure: A two-dimensional transthoracic echocardiogram with color flow and Doppler was performed. The study quality was technically adequate. There is no prior echocardiogram noted for this patient. Rhythm appears to be sinus rhythm with frequent PACs. Left Ventricle: The left ventricle is normal in size, wall thickness, and systolic function without any focal wall motion abnormalities. The ejection fraction is estimated to be 60-65%. Diastolic parameters suggest a pseudonormalization pattern, consistent with probable elevated filling pressures. Right Ventricle: The right ventricle is normal in size and function. Atria: The left atrium is moderately dilated. Right atrial size is normal. There is no Doppler evidence for an interatrial shunt. Mitral Valve: The mitral valve leaflets appear mildly thickened, but open well. There is trace mitral regurgitation. Aortic Valve: The aortic valve is trileaflet. The aortic valve opens well. There is no aortic valve stenosis. No aortic regurgitation is present. Tricuspid Valve: The tricuspid valve is normal in structure and function. There is a trace or physiologic amount of tricuspid regurgitation. Pulmonary artery pressures cannot be estimated because of the lack of a measurable TR jet velocity. Pulmonic Valve: The pulmonic valve is not well seen, but is grossly normal. Great Vessels: The aortic root is normal size. The ascending aorta is mildly enlarged. The aortic arch is normal in size. The pulmonary is not well visualized. The IVC is of normal diameter and collapses greater than 50% with a sniff. This suggests a low right atrial pressure of 3 mm Hg. Pericardium/ Pleura There is no pericardial effusion. There is no pleural effusion. MMode/2D Measurements & Calculations LVIDd: 4.5 cm LVOT diam: 2.2 cm LVIDs: 3.1 cm Ao root diam: 3.3 cm FS: 29.9 % asc Aorta Diam: 3.8 cm IVSd: 0.96 cm Ao Arch Diam (Prox Trans): 2.4 cm LVPWd: 0.83 cm LV chamberlain. diameter/BSA (cm/m^2): 2.3 LV sys. diameter/BSA (cm/m^2): 1.6 LA A2 area: 26.5 cm2 RA long axis: 4.2 cm LA A4 area: 14.7 cm2 RA area: 11.4 cm2 LA length (vol): 4.6 cm RA vol: 26.5 ml LA vol: 72.8 ml RA : 13.5 ml/m2 LA vol index: 37.2 ml/m2 IVC diam: 1.5 cm RVD1 (basal): 3.1 cm TAPSE: 2.3 cm Doppler Measurements & Calculations Ao V2 max: 122.4 cm/sec LVOT Max Davide: 104.8 cm/sec Ao V2 mean: 84.1 cm/sec LV V1 max P.4 mmHg Ao max P.1 mmHg LV V1 VTI: 22.2 cm Ao mean P.2 mmHg KAIDEN(I,D): 3.4 cm2 Ao V2 VTI: 25.3 cm KAIDEN(V,D): 3.4 cm2 sev ratio: 0.88 KAIDEN indexed to BSA (cm^2/m^2): 1.8 SV(LVOT): 86.8 ml Reading Physician:02:31 PM
== END ==
PROVIDERS: PCP Family Medicine; Visit Provider Family Medicine
DX: I48.91 Unspecified atrial fibrillation (principal)
CPT/HCPCS: 93306

== ENCOUNTER → 2018-11-05 13:50 | Outpatient (CLI) | payer MEDICARE, OTHER, SELFPAY ==
[2018-01-28 15:35] VITALS: BMI 33.6
--- NOTE | 2018-11-21 16:30 | PM.CARDMON.1 ---
J[employer]ne[employer] Report Referral & Results Date Patient Seen: 11/05/18 Requesting provider: Rachael Dc Indication: Atrial fibrillation Duration of monitoring (days): 3 Diary information: 6 diary entries associated with sinus rhythm, ventricular bigeminy and trigeminy, and PVCs 6 patient triggered events associated with sinus rhythm, ventricular bigeminy and trigeminy, and PVCs Data: Minimum heart rate identified was 45 beats per minute at 12:03 on 11/06/2018 Maximum sinus heart rate was 112 beats per minute at 07:32 on 11/07/2018 20% of identified beats were PVCs including an 8 minutes run of ventricular bigeminy and a 5 minutes run of ventricular trigeminy. There were 160 ventricular couplets and for ventricular triplets present Less 1% of identified beats were supraventricular ectopic in origin No atrial fibrillation was identified Impression: Significant and frequent ventricular dysrhythmia as above No atrial fibrillation
== END ==
PROVIDERS: PCP Family Medicine; Visit Provider Family Medicine
DX: I48.91 Unspecified atrial fibrillation (principal)
CPT/HCPCS: 0296T; 0298T

== ENCOUNTER → 2019-01-16 09:53 | Outpatient (CLI) | payer MEDICARE, OTHER, SELFPAY ==
[2018-01-28 15:35] VITALS: BMI 33.6
[2019-01-16 10:38] LABS: Alanine Aminotransferase 12 IU/L (9-52); Albumin 4.2 g/dL (3.5-5.0); Albumin Globulin Ratio 1.4 (1.0-2.8); Alkaline Phosphatase 56 U/L (38-126); Aspartate Aminotransferase 21 IU/L (14-36); BUN Creatinine Ratio 15.7 (6-22); Bilirubin Total 0.6 mg/dL (0.2-1.3); Blood Urea Nitrogen 11 mg/dL (7-17); Calcium 9.2 mg/dL (8.4-10.2); Carbon Dioxide 30 mmol/L (22-32); Chloride 104 mmol/L (98-107); Estimated Glomerular Filt Rate > 60.0 mL/min (>60); Glucose 99 mg/dL (80-110); HEMOLYSIS < 15 (0-50); Lipase 108 U/L (23-300); Sodium 142 mmol/L (137-145); Total Protein 7.2 g/dL (6.3-8.2)
== END ==
PROVIDERS: PCP Family Medicine; Visit Provider Family Medicine
DX: R10.11 Right upper quadrant pain (principal); R10.12 Left upper quadrant pain; R11.0 Nausea
CPT/HCPCS: 36415; 80053; 83690

== ENCOUNTER → 2019-01-16 10:12 | Outpatient (CLI) | payer MEDICARE, OTHER, SELFPAY ==
[2018-01-28 15:35] VITALS: BMI 33.6
--- NOTE | 2019-01-16 10:13 | DI.US.S_ITS ---
PROCEDURE: US ABDOMEN COMPLETE INDICATIONS: PAIN, NAUSEA TECHNIQUE: Real-time scanning was performed of the abdominal and retroperitoneal organs, with image documentation. COMPARISON: [facility], CT, KIDNEY/ URETER/BLADDER, 04/08/2017, 16:51. [facility], US, ABDOMEN COMPLETE, 11/15/2017, 7:27. FINDINGS: Liver: Liver is normal in size and homogeneous in echotexture. Gallbladder: No findings of gallstones or sludge are seen. The gallbladder wall is not thickened, measuring 3 mm or less. No specific pericholecystic fluid is seen. The sonographic Crawford sign is negative. Biliary ducts: Intrahepatic bile ducts are non-dilated. Extrahepatic bile duct caliber measures 4 mm. Normal is 6-7 mm or less in diameter, or 10 mm or less post-cholecystectomy. Pancreas: Visualized portions of the pancreas are sonographically normal. Spleen: Spleen is normal in size and homogeneous in echotexture. Kidneys: Kidneys are normal in size and echotexture. Right kidney measures 9.6 cm long; left kidney measures 9.5 cm long. There is mild right-sided hydronephrosis seen. No nephrolithiasis. No solid masses. Aorta: Visualized aorta is normal in caliber at less than 3 cm. Iliacs: Proximal common iliac arteries are normal in caliber at less than 2.5 cm. IVC: Intrahepatic inferior vena cava is patent. Miscellaneous: No free abdominal fluid. IMPRESSION: Mild, persistent right-sided hydronephrosis. The gallbladder demonstrates a normal sonographic appearance. No biliary dilatation is seen. Dictated by: Benjamin Marquez M.D. on 01/16/2019 at 11:11 Approved by: Benjamin Marquez M.D. on 01/16/2019 at 11:12
== END ==
PROVIDERS: PCP Family Medicine; Visit Provider Family Medicine
DX: R10.11 Right upper quadrant pain (principal); R10.12 Left upper quadrant pain; R11.0 Nausea; N13.30 Unspecified hydronephrosis
CPT/HCPCS: 36415; 76700; 80053; 83690

== ENCOUNTER → 2019-01-21 17:26 | Outpatient (CLI) | payer MEDICARE, OTHER, SELFPAY ==
[2018-01-28 15:35] VITALS: BMI 33.6
== END ==
PROVIDERS: PCP Family Medicine; Visit Provider Family Medicine
DX: R10.11 Right upper quadrant pain (principal); R10.12 Left upper quadrant pain; R11.0 Nausea
CPT/HCPCS: 86677

== ENCOUNTER → 2019-04-13 13:17 | Outpatient (CLI) | payer MEDICARE, OTHER, SELFPAY ==
[2018-01-28 15:35] VITALS: BMI 33.6
--- NOTE | 2019-04-13 | DI.NM.S_ITS ---
PROCEDURE: [place] RENAL FUNCTION W LASIX RADIOPHARMACEUTICAL: 10.6 mCi Tc-99m MAG3 IV and 40 mg furosemide IV. INDICATIONS: UNILATERAL HYDRONEPHROSIS TECHNIQUE: The patient was hydrated orally before the examination was begun. After intravenous administration of Tc-99m MAG3, posterior abdominal radionuclide angiogram and sequential (1 minute each frame) renal images were obtained. A time-activity curve for each kidney was generated and analyzed. To evaluate for obstruction, the patient was given 40 mg furosemide via slow intravenous injection after the start of the examination. Sequential images were obtained for up to an additional 20 minutes. COMPARISON: [facility], , US ABDOMEN COMPLETE, 01/16/2019, 10:35. [place], [place], [place] RENAL FUNCTION W LASIX, 01/17/2018, 13:38. FINDINGS: Perfusion: There is normal vascular flow to both kidneys. Morphology: Both kidneys are normal in size and shape there is a persistent appearance of right renal pelvis prominence. The ureters and bladder fill with tracer, and appear normal. Function: Both kidneys demonstrate normal cortical tracer uptake, with [id number] activity ranging from 3 to 5 minutes. The right kidney contributes 46.7% of total renal function. The left kidney contributes 53.3% of total renal function. This is compared to 44% and 56% on prior exam within the right and left kidney respectively. Lasix stimulation: After diuretic administration, there is prompt clearance of tracer activity from the renal collecting systems in both kidneys. The half-time of emptying of tracer activity from the right pelvicaliceal system is 21 minutes. The half-time of emptying from the left pelvicaliceal system is 23 minutes. Normal emptying half-times are less than 10 minutes; borderline ranges are from 10 to 20 minutes. IMPRESSION: 1. Right kidney contributes 47.6% of total renal function compared to 53.3% on the left, relatively stable compared to prior exam. 2. The half-time of emptying of tracer activity is mildly elevated at 21 minutes and 23 minutes within the right and left respectively. 3. Mildly dilated right renal collecting system as above. Renal obstruction could be considered given the elevated T1/2 after furosemide administration. Dictated by: Kayla Romano M.D. on 04/14/2019 at 16:52 Approved by: Kayla Romano M.D. on 04/14/2019 at 16:58
== END ==
PROVIDERS: PCP Nurse Practitioner; Visit Provider Specialist
DX: N13.30 Unspecified hydronephrosis (principal)
CPT/HCPCS: 78708; A9562

== ENCOUNTER → 2019-05-07 16:00 | Outpatient (CLI) | payer MEDICARE, OTHER, SELFPAY ==
[2018-01-28 15:35] VITALS: BMI 33.6
--- NOTE | 2019-05-07 | DI.MRI.S_ITS ---
PROCEDURE: MR CERVICAL SPINE WO CON INDICATIONS: Neck pain TECHNIQUE: Noncontrast sagittal T1 spin echo and T2 fast spin echo, sagittal STIR, foraminal oblique sagittal T2 fast spin echo, and axial gradient echo or T2 fast spin echo through the cervical spine. COMPARISON: None. FINDINGS: Image quality: Excellent. Alignment and Curvature: Mild degenerative retrolisthesis of C5 on C6 measuring approximately 2 mm. Mild degenerative anterolisthesis of C4 on C5 measuring approximately 2 mm. Mild degenerative anterolisthesis of C3 on C4 measuring approximately 3 mm. Bone Marrow: Marrow demonstrates normal overall signal. Spinal Cord: Visualized spinal cord has normal size and signal. No cerebellar tonsillar herniation. Paraspinous Soft Tissues: No paravertebral masses. Prevertebral soft tissues are normal in thickness. C2-C3: No canal stenosis or foraminal stenosis. Autofusion or congenital fusion and of the left C2-C3 facet. Mild right C2-C3 facet hypertrophy. C3-C4: Mild degenerative anterolisthesis of C3 on C4. Mild posterior disc bulge. AP diameter of the canal is 1.1 cm. Marked right facet hypertrophy and marked left facet hypertrophy. Severe bilateral foraminal narrowing with foraminal nerve root impingement. C4-C5: Minimal degenerative anterolisthesis of C4 on C5. No canal stenosis. Right foramen is patent. Marked left facet hypertrophy. Mild left foraminal narrowing. C5-C6: Severe disc loss. Mild retrolisthesis of C5 on C6. Diffuse posterior osteophyte. Moderate canal stenosis. AP diameter of the canal is 8 mm. Bilateral uncovertebral joint hypertrophy. Bilateral facet hypertrophy. Severe bilateral foraminal narrowing with nerve root impingement. C6-C7: Diffuse disc bulge. No canal stenosis. Bilateral facet hypertrophy. Bilateral uncovertebral joint hypertrophy. Moderate to severe bilateral foraminal narrowing with nerve root impingement. C7-T1: No canal stenosis or foraminal stenosis. IMPRESSION: 1. Severe spondylitic change. 2. Moderate canal stenosis at C5-C6. 3. Multilevel facet arthropathy. 4. Multilevel foraminal narrowing including severe bilateral foraminal narrowing at C3-C4, severe bilateral foraminal narrowing at C5-C6, and moderate to severe bilateral foraminal narrowing at C6-C7. Dictated by: Gabe Gramajo M.D. on 05/08/2019 at 9:42 Approved by: Gabe Gramajo M.D. on 05/08/2019 at 10:10
== END ==
PROVIDERS: PCP Nurse Practitioner; Visit Provider Orthopaedic Surgery
DX: M54.2 Cervicalgia (principal); M47.812 Spondylosis without myelopathy or radiculopathy, cervical region; M48.02 Spinal stenosis, cervical region; M43.12 Spondylolisthesis, cervical region
CPT/HCPCS: 72141

== ENCOUNTER → 2019-06-05 13:02 | Outpatient (CLI) | payer MEDICARE, OTHER, SELFPAY ==
[2018-01-28 15:35] VITALS: BMI 33.6
[2019-06-05 14:31] LABS: Cholesterol 175 mg/dL (140-199); HDL Cholesterol 51 mg/dL (40-60); LDL Cholesterol Calculated 108 mg/dL (<100); Triglycerides 81 mg/dL (35-150)
[2019-06-05 15:28] LABS: TSH w/ Reflex to FT4 5.26 uIU/mL (0.47-4.68)
[2019-06-05 16:13] LABS: Free T4, Direct Thyroxine 0.96 ng/dL (0.78-2.19)
== END ==
PROVIDERS: Family Provider Internal Medicine Cardiovascular Disease; PCP Nurse Practitioner; Visit Provider Nurse Practitioner
DX: E78.5 Hyperlipidemia, unspecified (principal); E66.9 Obesity, unspecified; F32.9 Major depressive disorder, single episode, unspecified; F41.9 Anxiety disorder, unspecified; I10 Essential (primary) hypertension; M81.0 Age-related osteoporosis without current pathological fracture; R63.5 Abnormal weight gain
CPT/HCPCS: 36415; 80061; 82306; 84439; 84443

== ENCOUNTER → 2019-06-17 13:03 | Outpatient (CLI) | payer MEDICARE, OTHER, SELFPAY ==
[2018-01-28 15:35] VITALS: BMI 33.6
--- NOTE | 2019-06-17 13:06 | DI.MG.S_ITS ---
BILATERAL DIGITAL DIAGNOSTIC MAMMOGRAM 3D/2D: 06/17/2019 CLINICAL: Bilateral breast pain. Comparison is made to exams dated: 12/13/2017 mammogram, 06/29/2016 mammogram, and 01/30/2011 mammogram - [facility]. There are scattered fibroglandular elements in both breasts. There is a possible 1 cm oval low density asymmetry in the right breast at 10 o'clock anterior depth that does not completely disperse on spot compression views. Overall, it appears to be similar to fibroglandular tissue. No other significant masses, calcifications, or other findings are seen in either breast. IMPRESSION: INCOMPLETE: NEEDS ADDITIONAL IMAGING EVALUATION The possible 1 cm oval low density asymmetry in the right breast is indeterminate. Further evaluation by sonogram is recommended which is scheduled to immediately follow this examination. There is no abnormality seen in the left breast to correspond with the area of clinical concern and nonfocal pain. This exam was interpreted at Station ID: [id number]. NOTE: For mammograms, a report in lay terms will be sent to the patient. Approximately 15% of breast malignancies will not be visualized mammographically. In the management of a palpable breast mass, a negative mammogram must not discourage biopsy of a clinically suspicious lesion. Electronically Signed By: Perez Montoya M.D. aty/:06/17/2019 14:11:44 ACR BI-RADS Category 0: Incomplete [id number]
--- NOTE | 2019-06-17 13:06 | DI.US.S_ITS ---
ULTRASOUND OF RIGHT BREAST AND AXILLA: 06/17/2019 CLINICAL: Patient returns today to evaluate a density in the right breast. Comparison is made to exams dated: 06/17/2019 mammogram, 12/13/2017 mammogram, 06/29/2016 mammogram, 01/30/2011 mammogram, 09/13/2009 mammogram, and 05/28/2008 mammogram - [facility]. Color flow and real-time ultrasound of the right breast axilla were performed. Donohue scale images of the real-time examination were reviewed. There is a 1.3 cm x 0.9 cm x 1 cm taller than wide irregular mass with an angular margin in the right breast at 11 o'clock anterior depth 7 cm from the nipple. This irregular mass is hypoechoic with no posterior acoustic shadowing or enhancement. This correlates with mammography findings. Color flow imaging demonstrates that there is vascularity present. No significant abnormalities were seen sonographically in the right axilla. IMPRESSION: SUSPICIOUS OF MALIGNANCY The 1.3 cm x 0.9 cm x 1 cm taller than wide irregular mass in the right breast is suspicious of malignancy. An ultrasound guided biopsy is recommended. Findings and recommendations were discussed with the patient by Dr. Gates. This exam was interpreted at Station ID: [id number]. Electronically Signed By: Perez Montoya M.D. at/:06/17/2019 14:43:20 letter sent: Biopsy Required Ultrasound BI-RADS: 4 Suspicious for malignancy
== END ==
PROVIDERS: Family Provider Internal Medicine Cardiovascular Disease; PCP Nurse Practitioner; Visit Provider Nurse Practitioner
DX: R92.8 Other abnormal and inconclusive findings on diagnostic imaging of breast (principal); N63.11 Unspecified lump in the right breast, upper outer quadrant; N64.4 Mastodynia
CPT/HCPCS: 76642; 77066; G0279

== ENCOUNTER → 2019-07-07 08:53 | Outpatient (CLI) | payer MEDICARE, OTHER, SELFPAY ==
[2018-01-28 15:35] VITALS: BMI 33.6
--- NOTE | 2019-07-07 | PATH_ITS ---
[facility] Accession Number: [id number] . 01 Material submitted: . breast - RIGHT BREAST 11:30 7 CM FN . 01 Clinical history: . ABNORMAL ULTRASOUND OF BREAST . 01 Diagnosis: A. Right Breast, 11:30 o'clock, 7 cm from Nipple, Biopsy: Invasive (ductal) carcinoma, grade 3 of 3 (Matthew combined histologic grade, total score 8/9), with the following features: 1. Tubular differentiation: Little or none. (3/3) 2. Nuclear pleomorphism: High. (3/3) 3. Mitotic rate: Intermediate. (2/3) 4. Size of invasive carcinoma: Present on 5 cores, single largest dimension of 7 mm. 5. Ductal carcinoma in situ: Present, with the following features: a. Nuclear grade: Intermediate to high. b. Necrosis: Not identified. 6. Calcifications: Present; in association with DCIS. 7. Lymphovascular space invasion: Absent. 8. Prognostic markers: a. Estrogen receptor status: Positive (99% tumor cells staining; staining intensity: Strong). b. Progesterone receptor status: Positive (10-15% tumor cells staining; staining intensity: Moderate to Strong). c. HER-2 status: Pending; results will be reported in an addendum. [facility] 07/09/2019 [facility] Local . 01 Electronically signed: . Padmini Victor MD, Pathologist NPI- [id number] . 01 Gross description: . Received one formalin-filled container labeled with the patient's name and labeled right breast 11:30 7 cm FN. The specimen is received with a plastic filter in container, sample loose in container and consists of multiple yellow-cummins, rough, cylindrical-shaped portions of tissue with an average diameter of 0.2-0.3 cm and range in length from 0.1 cm to 0.9 cm. The specimen is filtered, wrapped, and entirely submitted in one cassette. Collection date: 07/07/19. Collection time: 10:38. Total fixation time: Approximately 17 hours. ([id number]) /ANTOINE 07/08/2019 0220 Local . 01 Microscopic: . Predictive marker immunohistochemical studies are performed on block A1 with the invasive carcinoma showing the following results: . Estrogen receptor (SP1): Positive (99% tumor cells staining; staining intensity: Strong). Progesterone receptor (1E2): Positive (10-15% tumor cells staining; staining intensity: Moderate to Strong). Her2(4B5): Pending; results will be reported in an addendum. . Internal controls for ER and CA are positive. Cold ischemic time is <5 minutes. The scoring criteria for breast biomarkers by immunohistochemistry is based on the ASCO/CAP guidelines (Ana AC et al J Clin Oncol 2018: 2018 Feb 10;36(20):8616-7029 and Karyn LEWIS et al, Arch Pathol Lab Med 2009;134(6):907-22). Deparaffinized sections of formalin fixed tissue (along with appropriate positive controls) are incubated with the above antibody(s). Using the automated Dunellen stainer, tissue is incubated with the designated antibody which is then localized by a non-biotin, dual polymer detection system. The external controls are reviewed for appropriate reactivity and found to be adequate. Results on the target cell population are indicated above. These tests have not been validated on decalcified tissue. This test was developed and its performance characteristics determined by [facility]. It has not been cleared or approved by the U.S. Food and Drug Administration. The FDA has determined that such clearance or approval is not necessary. This test is used for clinical purposes. It should not be regarded as investigational or for research. . 01 Pathologist provided ICD-10: C50.121 . 01 CPT . 847040, 832722, 208663 Performed at: 01 [facility] [address] [place] [address] [address] [facility], [place], [place] [id number] MD Chirag Matta MD Phone: [phone]
--- NOTE | 2019-07-07 | DI.MG.S_ITS ---
UNILATERAL RIGHT DIGITAL DIAGNOSTIC MAMMOGRAM POST-NEEDLE BIOPSY: 07/07/2019 CLINICAL: Abnormal breast Ultrasound. Comparison is made to exams dated: 06/17/2019 ultrasound, 06/17/2019 mammogram, and 12/13/2017 mammogram - [facility]. There are scattered fibroglandular elements in right breast. There is a 6 x 7 mm mass in the right breast at 11 o'clock posterior depth, and post biopsy marker is in expected position at the margin of the mass. IMPRESSION: POST PROCEDURE MAMMOGRAM FOR MARKER PLACEMENT The mass in the right breast has been biopsied earlier today under US guidance, and the post biopsy Vision marker is in expected position at the mass margin. Pathology results pending. Follow-up with ACR/ACS guidelines. This exam was interpreted at Station ID: [id number]. NOTE: For mammograms, a report in lay terms will be sent to the patient. Approximately 15% of breast malignancies will not be visualized mammographically. In the management of a palpable breast mass, a negative mammogram must not discourage biopsy of a clinically suspicious lesion. Electronically Signed By: Cornelius Marquez M.D. sdh/:07/07/2019 16:09:28 ACR BI-RADS Category Post-procedure mammogram for marker placement
--- NOTE | 2019-07-07 08:55 | DI.US.S_ITS ---
ULTRASOUND GUIDED BIOPSY RIGHT BREAST USING VACUUM DEVICE WITH POST MAMMOGRAPHIC IMAGIN07/07/2019 CLINICAL: Right breast mass. PATIENT CONSENT: Risks (minor bleeding, infection, vasovagal reaction and repeat procedure), benefits and alternatives were explained to the patient and written informed consent was obtained. Correlation is made to exams dated: 07/07/2019 mammogram, 06/17/2019 ultrasound, 06/17/2019 mammogram, and 12/13/2017 mammogram - [facility]. An ultrasound guided biopsy using real-time ultrasound was performed for the concerning 6 cm x 7 cm x 6 cm circumscribed round solid mass located in the right breast at 11 o'clock middle depth. This was described on the previous mammography and ultrasound reports. The skin was prepped in the usual manner. Local anesthetic was administered to the access site. A skin lester was made in the breast. The abnormality was approached from the lateral aspect. A 13 gauge biopsy needle was placed adjacent to the abnormality under ultrasound guidance. Once the needle was documented to be in the correct location, six specimens were obtained using the Mammotome biopsy system. The patient received additional local anesthetic during the procedure. A skin closure strip and a sterile dressing were applied to the access site. Post procedure mammographic imaging demonstrates the clip at the targeted area and partial removal of the abnormality. The specimens were sent to the laboratory for pathological analysis. IMPRESSION: ULTRASOUND GUIDED BIOPSY MALIGNANT Ultrasound guided biopsy of the 6 cm x 7 cm x 6 cm solid mass in the right breast middle depth was successful. Pathology indicates malignant invasive ductal carcinoma (ID). Pathology results are concordant with imaging findings. This exam was interpreted at Station ID: [id number]. Cornelius Lozano M.D. [facility]/:07/14/2019 09:42:24
== END ==
PROVIDERS: Family Provider Internal Medicine Cardiovascular Disease; PCP Nurse Practitioner; Referring Provider Orthopaedic Surgery; Visit Provider Nurse Practitioner
DX: C50.411 Malignant neoplasm of upper-outer quadrant of right female breast (principal); Z17.0 Estrogen receptor positive status [ER+]
CPT/HCPCS: 19083; 77065

== ENCOUNTER → 2019-07-20 13:23 | Outpatient (CLI) | payer MEDICARE, OTHER, SELFPAY ==
[2019-07-15 12:19] VITALS: BMI 33.6
== END ==
PROVIDERS: Family Provider Internal Medicine Cardiovascular Disease; PCP Nurse Practitioner; Referring Provider Orthopaedic Surgery; Visit Provider Nurse Practitioner
DX: M81.0 Age-related osteoporosis without current pathological fracture (principal); Z78.0 Asymptomatic menopausal state; M15.9 Polyosteoarthritis, unspecified; N95.8 Other specified menopausal and perimenopausal disorders; Z79.83 Long term (current) use of bisphosphonates; Z90.722 Acquired absence of ovaries, bilateral; Z82.62 Family history of osteoporosis; Z85.3 Personal history of malignant neoplasm of breast; Z87.891 Personal history of nicotine dependence
CPT/HCPCS: 77080

== ENCOUNTER → 2019-08-07 07:46 | Outpatient (CLI) | payer MEDICARE, OTHER, SELFPAY ==
[2019-07-15 12:19] VITALS: BMI 33.6
--- NOTE | 2019-08-07 07:48 | DI.MRI.S_ITS ---
BREAST MRI OF BOTH BREASTS: 08/07/2019 CLINICAL: Right breast cancer. PROCEDURE: MR BREAST BI WO/W CON INDICATIONS: newly diagnosed right breast cancer, bilateral breast tender TECHNIQUE: The patient was placed prone in a dedicated breast imaging coil. Precontrast axial STIR and 3D FLASH without fat saturation sequences were obtained. Both before and after bolus injection of contrast, sequential 1-minute axial 3D FLASH with fat saturation sequences for 3 time points, with subtraction images and maximum intensity projections (MIP's) generated. Delayed sagittal FLASH images with fat saturation were also obtained. Computer-aided detection, including computer algorithm analysis of MRI image data for lesion detection and characterization, pharmacokinetic analysis, with further physician review for interpretation, was performed. COMPARISON: [facility], , BREAST RT LIMITED, 06/17/2019, 14:21. FINDINGS: Image quality: Excellent. There is mild background parenchymal enhancement. Right breast: There is a homogeneously enhancing 0.9 x 1.2 x 1.1 cm mass within the right breast at 11:00 at a middle depth. This corresponds with the ultrasound guided biopsy proven neoplasm. Approximately 4 mm inferior to the inferior margin of this mass is a 0.4 cm satellite lesion (series 14, image 55). Measured together on the sagittal image, the extent of the index mass and the satellite lesion measure 1.4 cm in CC diameter. No other suspicious mass lesions or abnormal enhancement Left breast: No suspicious enhancement or mass lesions in the left breast. Miscellaneous: Bilateral subcentimeter axillary lymph nodes are visualized. There is no cortical thickening or other suspicious features to suggest marilyn metastasis. No intramammary adenopathy. Limited visualization of the lungs, mediastinum, and upper abdomen are unremarkable. IMPRESSION: KNOWN BIOPSY PROVEN MALIGNANCY 1. Biopsy proven neoplasm at 11:00 at a middle depth within the right breast as above. No findings to suggest multicentric or multifocal disease. Of note, there is a small inferior satellite lesion 4 mm from the index mass. Measured together the largest dimension measures 1.4 cm in the craniocaudad axis. Of note, this lesion was similar in size on the comparison ultrasound dated 06/17/19. 2. No findings to suggest marilyn metastasis by size criteria or morphology. 3. No findings to suggest multifocal, multicentric, or contralateral disease. This exam was interpreted at Station ID: [id number]. Electronically Signed By: Apurva Gilbert M.D. lk/:08/07/2019 09:38:00 ACR BI-RADS Category 6: Known biopsy proven malignancy [id number]
== END ==
PROVIDERS: Family Provider Nurse Practitioner; PCP Nurse Practitioner; Visit Provider Internal Medicine Hematology & Oncology
DX: C50.411 Malignant neoplasm of upper-outer quadrant of right female breast (principal); N64.4 Mastodynia
CPT/HCPCS: 77049; A9579

== ENCOUNTER 2019-08-14 06:50 | Day surgery (SDC) | payer MEDICARE, OTHER, SELFPAY ==
[2019-07-15 12:19] VITALS: BMI 33.6
[2019-08-10 08:26] VITALS: BMI 36.0
[2019-08-14] VITALS (16 sets, daily range): BP systolic 100–152; BP diastolic 50–83; PULSE 60–93; RESP 12–17; TEMP 36.2–37.1; O2SAT 92–98; BMI 36.5
--- NOTE | 2019-08-14 | PATH_ITS ---
[facility] Accession Number: [id number] . 01 Material submitted: . PART A: breast - RIGHT BREAST PART B: lymph node - AXILLARY NODE,RIGHT . 01 Clinical history: . RIGHT BREAST CANCER. A: RIGHT BREAST, SINGLE SHORT STITCH ANTERIOR, SINGLE LONG STITCH LATERAL, DOUBLE STITCH SUPERIOR . 01 Diagnosis: A. Right Breast, Partial Mastectomy: Invasive (ductal) carcinoma, grade 3 of 3 (Freedom combined histologic grade, total score 8/9), with the following features: 1. Tumor size (invasive component): 2 lesions, 1.1 cm (by gross measurement) and a microscopic satellite focus (0.1 cm); see comment. 2. Tubular differentiation: Little or none. (3/3) 3. Nuclear pleomorphism: High. (3/3) 4. Mitotic rate: Intermediate. (2/3) 5. Ductal carcinoma in situ: Not definitively identified. 6. Microcalcifications: Absent. 7. Lymphovascular space invasion: Present. 8. Resection margins: a. Invasive carcinoma: Negative; carcinoma is less than 0.05 cm from the posterior margin, 0.1 cm from the lateral margin, 0.6 cm from the anterior margin, and more than 1 cm from the remaining margins; see comment. 9. Prognostic markers performed on [facility] ([id number], 07/07/2019) with the following results, per the report: a. Estrogen receptor status: Positive. b. Progesterone receptor status: Positive. c. HER2 status: negative for HER2 gene amplification by FISH studies. 10. Regional lymph node status (see part B below): a. Four axillary lymph nodes, negative for malignancy. 11. Additional findings: a. Skin, nipple and skeletal muscle are not present for evaluation. b. Background breast with focal fibroadenomatoid change and apocrine metaplasia. c. Coarse calcifications are present within media of vessels. d. Changes consistent with biopsy site are present. 12. Pathologic stage: pT1c, pN0. . B. Right Axillary Node, Dissection: 4 lymph nodes, negative for malignancy (0/4). MRV 08/20/2019 1353 Local . 01 Comment: The invasive carcinoma consists of two foci: one large mass (spanning slices 8-11) grossly measured at 1.1 cm and a smaller 'satellite' focus of invasion (slice 10) measuring 0.1 cm microscopically and is 0.4 cm away from the larger lesion. Morphologically the two carcinomas are similar. . Additional details on margins: The microscopic satellite focus of invasive carcinoma is less than 0.05 cm from the posterior margin, but is not at ink (i.e. not transected) and is 0.1 cm from the lateral margin (in block A7, slice 10); in addition the large lesion of invasive carcinoma is 0.2 cm from the posterior margin (block A5, slice 9). . 01 Electronically signed: . Padmini Victor MD, Pathologist NPI- [id number] . 01 Gross description: . (A) Received in formalin, labeled right breast, single short stitch anterior, single long stitch lateral, double short stitch superior. . Specimen: Right partial mastectomy. Weight: 144 grams. Measurement: 3.8 cm anterior to posterior, 7.2 cm medial to lateral, and 10.9 cm superior to inferior. Skin ellipse: Absent. Wire: Present, penetrating at the anterior superolateral aspect and ending in the specimen. Margins: Oriented by surgeon with single short anterior suture, single long lateral suture, double short superior suture, and inked as follows: Posterior=black; anterior=purple; superior=blue; inferior=green; medial=yellow; lateral=orange. Sliced: Superior to inferior into 18 slices. Lesions: One mass is identified. Description: Firm, cummins-white, well-circumscribed mass with a sung-shaped biopsy clip. Size: 1.1 x 0.7 x 0.7 cm. Slices involved: Slices #8 through #10. Biopsy site: No obvious biopsy site is identified. Distance to margins: 0.6 cm from the anterior margin, 0.1 cm from the posterior margin, 4.6 cm from the superior, 5.3 cm from the inferior margin, 5.4 cm from the medial margin, and 0.8 cm from the lateral margin. Other: The remaining cut surfaces consist of yellow, lobulated adipose tissue. No other nodules, masses, or lesions are identified. Fixation time: The specimen was placed in formalin on 08/14/2019 with no time given. The approximate total fixation time is calculated to be 35 hours and 30 minutes. Sections: A1: Slice 1, public utilities sales representative superior end of specimen, perpendicular. A2-A3: Slice 7, tissue directly superior to mass, public utilities sales representative, no mass present. A4: Slice 8, public utilities sales representative with mass. A5-A6: Slice 9, public utilities sales representative with mass. A7-A8: Slice 10, public utilities sales representative with mass. A9: Slice 11, tissue directly inferior to mass, public utilities sales representative, no mass present. Slice involving localization wire. A10: Slice 12, public utilities sales representative. A11: Slice 15, public utilities sales representative. A12: Slice 18, public utilities sales representative inferior end of specimen, perpendicular. Note: The mass is entirely submitted. Additional sections: (A13-A14): Slice 11, firm area with anterior margin and possible lateral margin, the sections are mirror images of each other. (:cmc10 [id number]) . (B) Received in formalin, labeled axillary nodes, right, are multiple pieces of yellow-estevez adipose tissue (4.0 x 3.0 x 1.4 cm) containing multiple lymph nodes (0.1 cm-1.1 x 0.6 x 0.4 cm). Section code: (B1) multiple intact lymph nodes; (B2-B3) one bisected lymph node in each cassette. (:cmc88 [id number]) /[facility] 08/18/2019 [facility]8 Local . 01 Microscopic: . In block A5, focal areas suspicious for lymphatic space invasion are evaluated with D2-40 and p63, with appropriately staining external controls. Focally, D2-40 highlights a space which contains a neoplastic glandular proliferation (and is negative for p63), in support of lymphatic space invasion. Smooth muscle myosin is also performed on this block in order to assess for the presence of ductal carcinoma in situ (DCIS) and is negative in the areas examined, in support of no definite evidence of DCIS. . * This test was developed and its performance characteristics determined by [facility]. It has not been cleared or approved by the U.S. Food and Drug Administration. The FDA has determined that such clearance or approval is not necessary. This test is used for clinical purposes. It should not be regarded as investigational or for research. . 01 Pathologist provided ICD-10: C50.411 . 01 CPT . 868947, K48390, B26416, 066322 Performed at: [address] [facility], [place], [place] [id number] MD Chirag Matta MD Phone: [phone]
--- NOTE | 2019-08-14 | DI.MG.S_ITS ---
SPECIMEN: 08/14/2019 CLINICAL: Right breast specimen. Correlation is made to exams dated: 08/14/2019 localization, 08/07/2019 breast MRI, 07/07/2019 ultrasound biopsy, 07/07/2019 mammogram, 06/17/2019 ultrasound, and 06/17/2019 mammogram - [facility]. The specimen contains the targeted biopsy clip and localizing wire. An area of increased tissue density adjacent the clip near the C12 position on the alphanumeric grid may represent the targeted mass, although the area is partially obscured by postsurgical change. IMPRESSION: SPECIMEN The specimen contains the targeted biopsy clip and localizing wire. An area of increased tissue density adjacent the clip near the C12 position on the alphanumeric grid may represent the targeted mass, although the area is partially obscured by postsurgical change. This exam was interpreted at Station ID: [id number]. Khoi Gates M.D. ecl/:08/14/2019 16:24:12
--- NOTE | 2019-08-14 06:56 | DI.NM.S_ITS ---
PROCEDURE: NM SENTINEL NODE W IMAGING RADIOPHARMACEUTICAL: 0.5-1.0 mCi Millipore filtered Tc-99m sulfur colloid. INDICATIONS: right breast cancer, radiotracer injection pre op TECHNIQUE: The area around the nipple was prepped and draped in a sterile fashion. Tc-99m sulfur colloid was injected intra-dermally in the outer edge of the areola in the right breast. Images were obtained subsequently. A body contour outline was obtained. FINDINGS: There are a couple of lymph nodes in the axillary tail of the right breast and 4-5 lymph nodes in the ipsilateral right axilla. IMPRESSION: Bourg lymph node mapping of the right breast. Dictated by: Chitra Graff M.D. on 08/14/2019 at 9:29 Approved by: Chitra Graff M.D. on 08/14/2019 at 9:34
--- NOTE | 2019-08-14 06:56 | DI.MG.S_ITS ---
DIGITAL MAMMOGRAPHY GUIDED WIRE LOCALIZATION RIGHT BREAST WITH POST DIGITAL MAMMOGRAPHIC IMAGING- POST-NEEDLE BIOPSY: 08/14/2019 CLINICAL: Right breast cancer. Correlation is made to exams dated: 08/07/2019 breast MRI, 07/07/2019 ultrasound biopsy, 07/07/2019 mammogram, 06/17/2019 ultrasound, 06/17/2019 mammogram, and 12/13/2017 mammogram - [facility]. A wire localization using digital mammography guidance was performed for the marker clip and previously biopsied mass located in the superior lateral right breast at 11 o'clock position middle depth. The skin was prepped in the usual manner. 5 mL of 1% lidocaine was used for local anesthesia. The localization was approached from the craniocaudal aspect. A 7 cm Kopans hook wire was inserted into the targeted area under digital mammography guidance. Post placement digital mammographic imaging was obtained and demonstrates the targeted biopsy clip and targeted mass immediately adjacent the proximal/superficial stiffener portion of the Kopans wire, approximately 3.0 cm superficial/proximal/superior to the tip of the Kopans hook wire. A sattelite lesion was described on comparison breast MRI of 08/07/19 located approximately 4 mm inferior to the previously biopsied malignant mass and marker clip, which would place the expected location of the sattelite lesion near the midportion of the wire stiffener of the Kopans hook wire. IMPRESSION: WIRE LOCALIZATION Wire localization for the marker clip previously biopsied mass in the right breast at 11 o'clock middle depth was successful with no apparent post procedure complications. The targeted biopsy clip and mass are immediately adjacent the proximal/superficial stiffener portion of the Kopans wire, approximately 3.0 cm superficial/proximal/superior to the tip of the Kopans hook wire. The expected location of the sattelite lesion described on comparison breast MRI of 08/07/19 would be 5 mm deep to the biopsy marker clip, near the midportion of the wire stiffener of the Kopans hook wire. These findings were discussed with the referring provider Dr. Diana Voss at approximately 10:00am on 08/14/[address] Gates. This exam was interpreted at Station ID: [id number]. Khoi Gates M.D. ecl/:08/14/2019 10:16:47
--- NOTE | 2019-08-14 09:51 | SUR.PREOP ---
Patient returned from DI. Condition stable. Call light within reach. Family at bedside.
--- NOTE | 2019-08-14 10:50 | SUR.PREOP ---
pt sleeping quietly
[2019-08-14] MEDS: ACETAMINOPHEN 325 MG TABLET 975 MG PO (12:36)
[2019-08-14] MEDS: LACTATED RINGERS 1,000 ML 100 ML IV ×2 (12:38→16:19)
--- NOTE | 2019-08-14 13:44 | PM.PREOP ---
Pre-operative Note Interval Note History & Physical reviewed/Exam performed by Physician: Yes Changes to H&P: No
[2019-08-14] MEDS: CEFAZOLIN 2 GM/100 ML FROZ.PIGGY IV (13:47)
--- NOTE | 2019-08-14 14:58 | SUR.OPER ---
Supine on padded OR bed, head on pillow, arms secured on padded arm boards at <90 degrees abduction, legs uncrossed, safety belt at thigh, tape over blanket over lower legs.
[2019-08-14] MEDS: BUPIVACAINE 0.25% W/ EPI (PF) 10 ML VIAL 20 ML INJ (15:13)
[2019-08-14] MEDS: METHYLENE BLUE 50 MG/10 ML VIAL IV (15:15)
[2019-08-14] MEDS: BUPIVACAINE LIPOSOME 266 MG/20 ML VIAL INJ (16:30)
[2019-08-14] MEDS: HYDROMORPHONE 2 MG INJ IV ×4 (17:15→17:30)
[2019-08-14] MEDS: OXYCODONE IR 5 MG TABLET PO ×2 (17:20→22:12)
--- NOTE | 2019-08-14 17:31 | PM.OP.1 ---
Operative Date/Time/Diagnoses Date of procedure: 08/14/19 Time of procedure: 17:32 Pre-op diagnosis: right breast cancer Post-op diagnosis: same Procedure & Clinicians Procedure: Right partial mastectomy, right axillary sentinel node biopsy Same procedure as scheduled: Yes Indications: right breast invasive ductal carcinoma Surgeon: Diana Mcgill Click Yes if Unassisted: Yes Anesthesia Type: General Operative Notes Findings: Firm mass associated with wire loc in upper outer quadrant of right breast; normal appearing right axillary nodes Specimen(s): other (right breast lumpectomy, right axillary lymph nodes ) Estimated Blood Loss (mL): 5 Procedure in detail: The patient was brought into the OR and placed supine on the OR table. Sequential compression devices were placed on both legs and turned on. General anesthesia was induced and the patient was intubated by Dr. Johnson. Appropriate perioperative antibiotics were given. Surgical time out was performed. 5mL's of 0.5% Methylene blue were injected intradermally in the subareaolar and peritumoral areas. The tissue was massaged for 3 minutes. The chest and right axilla were prepped and draped in sterile fashion. The gamma probe was used to identify a hot spot in the axilla. Local anesthetic was infiltrated in the skin in an appropriate skin crease at the border of the axilla. A 15 blade was then used to make a 10cm curvilinear incision in the skin at this site. Dissection was carried down to through subcutaneous fat using cautery. The clavipectoral fascia was identified and opened. Three lymph nodes were identified using the gamma probe, and were removed. They were passed off the table for pathology. Attention was then turned to the breast. Local anesthetic was infiltrated into the skin along the superior areolar border. A curvilinear incision was made at that site. Dissection was carried down through the dermis using a 15 blade. Cautery was then used to dissect to the avascular plane between the subcutaneous fat and the breast tissue. Dissection was carried along this plane using Metzenbaum scissors after infiltration of local anesthetic. The localization wire was identified and pulled into the wound. Dissection was then carried around the mass, along with a 1cm margin. Once the mass was completely dissected out it was delivered from the wound and marked using silk suture. Double stitch superior, long single stitch lateral, short single stitch anterior. Local anesthetic with Marcaine and Exparel was used to inject the skin and subcutaneous tissue, as well as the chest wall. It was also injected in the axilla. Good hemostasis was observed. 3-0Vicryl was used to then bring together the subcutaneous fat tissue, and to close the dermis of the breast incision and the axillary incision. 4-0 Monocryl was used to close the skin with a subcuticular suture. The skin was then sealed with dermabond. A surgical support bra was placed with extra padding over the right breast. The patient was then awakened from anesthesia and extubated. Needle sponge and instrument counts were correct x 2. The patient was transferred to the PACU in stable condition. Complications: none Post-operative Condition: stable Disposition: PACU
--- NOTE | 2019-08-14 18:15 | SUR.PHASEI ---
pt and family feel she is in too much pain and too weak to go home tonight- dr ruiz is admitting for observation
[2019-08-14] MEDS: CALCIUM CARBONATE 600 MG TABLET 300 MG PO (20:19)
[2019-08-14] MEDS: METOPROLOL IR 25 MG TABLET 12.5 MG PO (20:19)
--- NOTE | 2019-08-14 22:44 | PC.ADMIT ---
[email or web address] [facility] Admission Note: The patient,Milli Milan,73 y/o, was given written information regarding hospital policies, unit procedures and contact persons. Patient's smoking status: Former smoker. Pt arrived from PACU at approx 1840 via stretcher. Trans to bed. VSS. sats 95% on 2L NC. Denies pain. Oriented to room and call system. Call light within reach. Supportive family at bedside. Vital Signs - 8 hr 08/14/19 17:07 08/14/19 17:13 08/14/19 17:18 Temperature 97.5 F L Pulse Rate 82 82 85 Respiratory Rate 12 16 14 Blood Pressure 137/79 135/69 116/52 L Pulse Oximetry 96 92 95 08/14/19 17:30 08/14/19 17:40 08/14/19 17:55 Temperature Pulse Rate 82 84 86 Respiratory Rate 13 15 14 Blood Pressure 122/83 100/50 L 116/81 Pulse Oximetry 94 94 95 08/14/19 18:10 08/14/19 18:25 08/14/19 18:40 Temperature 97.3 F L Pulse Rate 87 80 93 H Respiratory Rate 14 14 16 Blood Pressure 117/55 L 133/64 135/79 Pulse Oximetry 93 98 95 08/14/19 19:10 08/14/19 19:20 08/14/19 19:40 Temperature 98.0 F 98.8 F Pulse Rate 90 84 Respiratory Rate 17 16 Blood Pressure 130/75 119/72 Pulse Oximetry 94 93 96 08/14/19 20:40 08/14/19 21:40 Temperature 97.6 F 97.4 F L Pulse Rate 84 89 Respiratory Rate 16 17 Blood Pressure 112/67 125/79 Pulse Oximetry 96 93
[2019-08-15] MEDS: SODIUM CHLORIDE 0.9% FLUSH 10 ML IV ×2 (00:32→08:41)
[2019-08-15] MEDS: ACETAMINOPHEN 325 MG TABLET 650 MG PO ×3 (00:39→10:48)
[2019-08-15] MEDS: OXYCODONE IR 5 MG TABLET PO ×3 (01:33→08:39)
[2019-08-15 04:46] VITALS: BP 138/76; PULSE 77; RESP 16; TEMP 36.6; O2SAT 94
--- NOTE | 2019-08-15 06:37 | PC.NURSE ---
Pt stated pain became more controlled over course of night. Administered PRN oxycodone and tylenol per order, rates pain 5-7. Ice pack to right breast site for comfort. Dressing CDI and breast binder in place. O2 at 2L to maintain sat 93% per order. Adequate UOP, transfer to BSC x1 person. Pt performing IS while awake. ROM done with activity transferring to BSC. Anticipate discharge to home. Offer reinforced education regarding adequate pain control and use of medication using pain scale. Reinforce risk of constipation. Assess for knowledge deficits regarding pain med use.
[2019-08-15 08:00] VITALS: BP 124/66; PULSE 71; RESP 18; TEMP 36.2; O2SAT 100
[2019-08-15] MEDS: CITALOPRAM 20 MG TABLET 10 MG PO (08:40)
[2019-08-15] MEDS: CHOLECALCIFEROL (VITAMIN D3) 400 UNIT TABLET 1200 UNIT PO (08:40)
[2019-08-15] MEDS: CALCIUM CARBONATE 600 MG TABLET 300 MG PO (08:40)
[2019-08-15] MEDS: ENOXAPARIN 40 MG/0.4 ML SYRINGE SUBCUT (08:40)
[2019-08-15] MEDS: METOPROLOL IR 25 MG TABLET 12.5 MG PO (08:41)
[2019-08-15] MEDS: MULTIVITAMIN 1 TABLET 1 TAB PO (08:41)
[2019-08-15] MEDS: DOCUSATE 100 MG CAPSULE PO (10:48)
--- NOTE | 2019-08-15 11:33 | CM.DANOTE ---
DCP/Assessment: Reviewed chart. Patient is a 73yr old female admitted to [facility] for right partial mastectomy with biopsy performed by Dr. Mcgill. PCP is Melvina Penny. Primary payor is 1)Medicare 2)[employer]. Met with patient and family at bedside explained CM/SW role. Patient plans to d/c home today. Patient initially thought she would be discharged after procedure but unfortunately did not recover as expected. Therefore, brought to room#204 for the evening. P: Home today with family support. BENITEZ Rudd
== END 2019-08-15 11:41 | disposition home or self-care (01) ==
LOC: OR 17:33 → AC 08-15 10:30 → OR 08-17 08:54
PROVIDERS: Family Provider Nurse Practitioner; PCP Nurse Practitioner; Visit Provider Surgery
PROC: 0HTT0ZZ Resection of Right Breast, Open Approach (ICD-10-PCS; CPT 19303; principal; 2019-08-14 13:45)
DX: C50.411 Malignant neoplasm of upper-outer quadrant of right female breast (principal); Z17.0 Estrogen receptor positive status [ER+]; E66.9 Obesity, unspecified; Z68.36 Body mass index [BMI] 36.0-36.9, adult; I10 Essential (primary) hypertension; M79.7 Fibromyalgia; I25.2 Old myocardial infarction; I49.9 Cardiac arrhythmia, unspecified; Z87.891 Personal history of nicotine dependence
CPT/HCPCS: 38525; 19301; 19281; 76098; 78195; 88307; 88341; 88342; 94762; A9541; G0378; C9290; J0690; J1100; J1170; J1650; J2250; J2405; J2704; J3010; Q9968

== ENCOUNTER → 2019-09-08 15:48 | Outpatient (CLI) | payer MEDICARE, OTHER, SELFPAY ==
[2019-08-17 10:52] VITALS: BMI 36.5
--- NOTE | 2019-09-08 15:50 | DI.RAD.S_ITS ---
PROCEDURE: XR FOOT LT MIN 3V INDICATIONS: left foot pain, left 4th toe pain TECHNIQUE: 3 views of the foot were acquired. COMPARISON: None. FINDINGS: Bones: No fractures or dislocations. No suspicious bony lesions. Plantar bone spur. Soft tissues: No tibiotalar joint effusion. Achilles tendon appears normal. IMPRESSION: No fracture. No acute osseous lesion. If symptoms and/or clinical suspicion for pathology persists, further assessment with repeat radiographs (7-10 days) or advanced imaging (e.g. CT, MRI or bone scan) may be helpful. Dictated by: Kalani Hendricks MD, PhD on 09/08/2019 at 16:26 Approved by: Kalani Hendricks MD, PhD on 09/08/2019 at 16:27
== END ==
PROVIDERS: PCP Nurse Practitioner; Visit Provider Nurse Practitioner
DX: M79.672 Pain in left foot (principal); M79.675 Pain in left toe(s)
CPT/HCPCS: 73630

== ENCOUNTER → 2019-12-24 11:07 | Outpatient (CLI) | payer MEDICARE, OTHER, SELFPAY ==
[2019-09-10 14:17] VITALS: BMI 36.5
[2019-12-24 11:29] LABS: Add Manual Diff / Slide Review NO; Basophils Absolute Auto 0 /uL (0-100); Basophils Percent Auto 0.7 % (0-2); Eosinophils Absolute Auto 100 /uL (0-450); Eosinophils Percent Auto 1.5 % (2-4); Hematocrit 39.9 % (36-46); Hemoglobin 13.5 g/dL (12.0-16.0); Lymphocytes Absolute Auto 1400 /uL (1100-4500); Lymphocytes Percent Auto 29.1 % (25-40); Mean Corpuscular HGB Conc 33.9 % (30-36); Mean Corpuscular Hemoglobin 33.9 PG (26-34); Mean Corpuscular Volume 99.8 fL (80-100); Monocytes Absolute Auto 500 /uL (0-900); Neutrophils Absolute Auto 2900 /uL (1500-7000); Neutrophils Percent Auto 58.7 % (50-75); Platelet Count 240 X10^3/uL (150-400); Red Cell Distribution Width 13.6 % (11.6-14.8)
[2019-12-24 11:40] LABS: Alanine Aminotransferase 13 IU/L (<35); Albumin 4.3 g/dL (3.5-5.0); Albumin Globulin Ratio 1.3 (1.0-2.8); Alkaline Phosphatase 52 U/L (38-126); Aspartate Aminotransferase 25 IU/L (14-36); BUN Creatinine Ratio 21.6 (6-22); Bilirubin Total 0.5 mg/dL (0.2-1.3); Blood Urea Nitrogen 16 mg/dL (7-17); Carbon Dioxide 27 mmol/L (22-32); Chloride 104 mmol/L (98-107); Estimated Glomerular Filt Rate > 60.0 mL/min (>60); Globulin 3.4 g/dL (1.7-4.1); Glucose 115 mg/dL (80-110); HEMOLYSIS < 15 (0-50); Potassium 4.7 mmol/L (3.4-5.1); Sodium 139 mmol/L (137-145); Total Protein 7.7 g/dL (6.3-8.2)
== END ==
PROVIDERS: PCP Nurse Practitioner; Referring Provider Internal Medicine Hematology & Oncology; Visit Provider Internal Medicine Hematology & Oncology
DX: C50.911 Malignant neoplasm of unspecified site of right female breast (principal)
CPT/HCPCS: 36415; 80053; 85025

== ENCOUNTER → 2020-01-01 15:02 | Outpatient (CLI) | payer MEDICARE, OTHER, SELFPAY ==
[2019-09-10 14:17] VITALS: BMI 36.5
--- NOTE | 2020-01-01 15:03 | DI.US.S_ITS ---
LIMITED ULTRASOUND OF RIGHT BREAST: 01/01/2020 CLINICAL: Non healing wound right breast. Comparison is made to exams dated: 08/14/2019 specimen, 08/14/2019 localization, 08/07/2019 breast MRI, 07/07/2019 ultrasound biopsy, 07/07/2019 mammogram, and 06/17/2019 ultrasound [facility]. Color flow and real-time ultrasound of the right breast 12 o'clock, and retroareolar regions were performed on the areas of interest. There is an irregular post-surgical scar with indistinct margins in the right breast at 12 o'clock in the retroareolar region. This irregular post-surgical scar is hypoechoic. This correlates with area of clinical concern. There is associated soft tissue edema. Color flow imaging demonstrates that there is no increase in vascularity. No discrete drainable abscess collection identified. IMPRESSION: PROBABLY BENIGN The irregular post-surgical scar in the right breast is probably benign. No discrete drainable abscess identified. Clinical correlation and follow up are recommended. A follow-up ultrasound in 3 months is recommended to demonstrate stability or resolution. Consider further evaluation with a mammogram if clinical concern persists. A follow-up ultrasound in 3 months is recommended. This exam was interpreted at Station ID: [id number]. Electronically Signed By: Chirag Crow M.D. dddaria/:01/01/2020 17:20:06 letter sent: Followup Recommended Ultrasound BI-RADS: 3 Probably benign
== END ==
PROVIDERS: PCP Nurse Practitioner; Referring Provider Internal Medicine Hematology & Oncology; Visit Provider Internal Medicine Hematology & Oncology
DX: L76.82 Other postprocedural complications of skin and subcutaneous tissue (principal); C50.411 Malignant neoplasm of upper-outer quadrant of right female breast; Z17.0 Estrogen receptor positive status [ER+]
CPT/HCPCS: 76642

== ENCOUNTER → 2020-03-28 14:06 | Outpatient (CLI) | payer MEDICARE, OTHER, SELFPAY ==
[2020-01-04 09:17] VITALS: BMI 36.5
--- NOTE | 2020-03-28 14:08 | DI.US.S_ITS ---
LIMITED ULTRASOUND OF RIGHT BREAST AND AXILLA: 03/28/2020 CLINICAL: 6 month follow-up un-healing wound. Comparison is made to exams dated: 01/01/2020 ultrasound, 08/14/2019 specimen, and 07/07/2019 ultrasound [facility]. Color flow and real-time ultrasound of the right breast 11-12 o'clock, and axilla regions were performed. Donohue scale images of the real-time examination were reviewed. There is an irregular hypoechoic post-lumpectomy scar with an indistinct margin in the right breast at 12 o'clock retroareolar region. There appears to be mild edema. This correlates with area of clinical concern. Color flow imaging demonstrates that there is no increase in vascularity. No loculated collection to suggest abscess. No significant abnormalities were seen sonographically in the right axilla. IMPRESSION: PROBABLY BENIGN Similar persistent irregular scar tissue at the site of non-healing wound in the right breast is probably benign. A follow-up mammogram and ultrasound in 3 months is recommended. Patient will also be due for left breast mammogram. Recommend continued clinical follow-up/ wound care as needed. Exam findings conveyed to the patient. Patient advised to monitor for significant change. This exam was interpreted at Station ID: [id number]. Electronically Signed By: Marcellus Lozano M.D. [facility] [place]/:03/28/2020 15:19:38 letter sent: Followup Recommended Ultrasound BI-RADS: 3 Probably benign
[2020-03-28 15:21] LABS: Add Manual Diff / Slide Review NO; Basophils Absolute Auto 0 /uL (0-100); Basophils Percent Auto 0.6 % (0-2); Eosinophils Absolute Auto 100 /uL (0-450); Eosinophils Percent Auto 1.2 % (2-4); Hematocrit 39.1 % (36-46); Hemoglobin 13.4 g/dL (12.0-16.0); Lymphocytes Absolute Auto 1900 /uL (1100-4500); Lymphocytes Percent Auto 28.8 % (25-40); Mean Corpuscular HGB Conc 34.2 % (30-36); Mean Corpuscular Hemoglobin 34.1 PG (26-34); Mean Corpuscular Volume 99.4 fL (80-100); Monocytes Absolute Auto 700 /uL (0-900); Monocytes Percent Auto 10.6 % (3-14); Neutrophils Absolute Auto 4000 /uL (1500-7000); Neutrophils Percent Auto 58.8 % (50-75); Platelet Count 253 X10^3/uL (150-400); Red Blood Cell Count 3.93 X10^6/uL (4.0-5.2); Red Cell Distribution Width 13.7 % (11.6-14.8); White Blood Cell Count 6.7 X10^3/uL (4.5-11.0)
[2020-03-28 16:29] LABS: Alanine Aminotransferase 15 IU/L (<35); Albumin 4.4 g/dL (3.5-5.0); Albumin Globulin Ratio 1.4 (1.0-2.8); Alkaline Phosphatase 51 U/L (38-126); Aspartate Aminotransferase 26 IU/L (14-36); BUN Creatinine Ratio 19.2 (6-22); Bilirubin Total 0.6 mg/dL (0.2-1.3); Blood Urea Nitrogen 14 mg/dL (7-17); Calcium 9.4 mg/dL (8.4-10.2); Carbon Dioxide 25 mmol/L (22-32); Chloride 105 mmol/L (98-107); Estimated Glomerular Filt Rate > 60.0 mL/min (>60); Globulin 3.1 g/dL (1.7-4.1); Glucose 89 mg/dL (80-110); HEMOLYSIS < 15 (0-50); Potassium 4.4 mmol/L (3.4-5.1); Sodium 137 mmol/L (137-145); Total Protein 7.5 g/dL (6.3-8.2)
== END ==
PROVIDERS: PCP Nurse Practitioner; Referring Provider Internal Medicine Hematology & Oncology; Visit Provider Internal Medicine Hematology & Oncology
DX: R92.8 Other abnormal and inconclusive findings on diagnostic imaging of breast (principal); C50.911 Malignant neoplasm of unspecified site of right female breast; T81.89XD Other complications of procedures, not elsewhere classified, subsequent encounter
CPT/HCPCS: 36415; 76642; 80053; 85025

== ENCOUNTER → 2020-05-08 11:09 | Outpatient (CLI) | payer MEDICARE, OTHER, SELFPAY ==
[2020-01-04 09:17] VITALS: BMI 36.5
[2020-05-09 14:02] LABS: COVID19 Sendout Not Detected (Not Detect)
== END ==
PROVIDERS: PCP Nurse Practitioner; Visit Provider Physician Assistant
DX: Z11.59 Encounter for screening for other viral diseases (principal)
CPT/HCPCS: 87635

== ENCOUNTER 2020-05-11 12:05 | Day surgery (SDC) | payer MEDICARE, OTHER, SELFPAY ==
[2020-01-04 09:17] VITALS: BMI 36.5
[2020-05-05 12:53] VITALS: BMI 38.6
--- NOTE | 2020-05-11 | PATH_ITS ---
[facility] Accession Number: [id number] . 01 Material submitted: . breast - RIGHT MASTECTOMY SCAR . 01 Clinical history: . RIGHT MASTECTOMY . 01 Diagnosis: Right Breast, Excision: Scar with associated reactive inflammatory changes, consistent with prior procedural site. No evidence of malignancy in sections examined. V 05/18/2020 1501 Local . 01 Comment: The entire specimen is submitted for histologic evaulation. . 01 Electronically signed: . Justin Sierra MD, Dermatopathologist NPI- [id number] . 01 Gross description: . Received in formalin, labeled right mastectomy scar, and consists of a 4.2 x 1.4 cm estevez skin excised to a depth of 1.8 cm. The specimen is oriented with a long suture designated lateral and a short suture designated superior. The skin surface displays a 2.8 x 0.2 cm semi-lunar scar located 0.5 cm from the superior inferior margins. The specimen is inked as follows: superior blue, inferior green, medial yellow, lateral orange, and posterior back. The specimen is serially sectioned from medial to lateral, and sections are submitted as follows: . A1: medial end, perpendicularly sectioned. A2: lateral end, perpendicularly sectioned. A3-A5: in home sales representative scar. (EA:cmc10 [id number]) . ADDITIONAL CASSETTE SUMMARY: A6-A11: remainder of specimen. (EA:cmc10 [id number]) /V 05/18/2020 1501 Local . 01 Pathologist provided ICD-10: L90.5 . 01 CPT . 370485 Performed at: [address], [place], [place] [id number] MD Chirag Matta MD Phone: [phone]
[2020-05-11 13:03] VITALS: BP 152/85; PULSE 65; RESP 16; TEMP 36.7; O2SAT 94; BMI 38.6
[2020-05-11] MEDS: LACTATED RINGERS 1,000 ML 100 ML IV (13:14)
--- NOTE | 2020-05-11 13:49 | PM.PREOP ---
Pre-operative Note COVID-19 COVID-19 status: Negative Result date/Date tested (Pos, Neg/Pending): 05/08/20 Interval Note History & Physical reviewed/Exam performed by Physician: Yes Changes to H&P: No
[2020-05-11] MEDS: MIDAZOLAM 2 MG/2 ML VIAL IV (13:58)
[2020-05-11] MEDS: CEFAZOLIN 2 GM/100 ML FROZ.PIGGY IV (14:05)
--- NOTE | 2020-05-11 14:25 | SUR.OPER ---
Supine on padded OR bed, head on pillow, arms secured on padded arm boards at <90 degrees abduction, legs uncrossed, safety belt at thigh, tape over blanket over lower legs.
[2020-05-11] MEDS: BUPIVACAINE 0.25% W/ EPI 30 ML VIAL INJ (14:31)
[2020-05-11] MEDS: BUPIVACAINE LIPOSOME 266 MG/20 ML VIAL INJ (14:32)
[2020-05-11 15:00] VITALS: BP 152/82; PULSE 90; RESP 16; TEMP 36.1; O2SAT 96
[2020-05-11 15:06] VITALS: BP 156/81; PULSE 85; RESP 14; O2SAT 96
--- NOTE | 2020-05-11 15:11 | PM.OP.1 ---
Operative Date/Time/Diagnoses Date of procedure: 05/11/20 Time of procedure: 15:11 Pre-op diagnosis: non healing mastectomy wound, suspicious for cancer recurrence Post-op diagnosis: same Procedure & Clinicians Procedure: partial mastectomy, excision of non healing mastectomy wound Same procedure as scheduled: Yes Indications: This patient had a lumpectomy in July for early stage breast cancer, after which she had skin necrosis at the incision site which developed into a chronic wound after radiation treatment. Post op imaging raises the concern for recurrent cancer at the wound site. Surgeon: Diana Mcgill Click Yes if Unassisted: Yes Anesthesia Type: General Operative Notes Findings: Firm scar tissue surrounding the nonhealing wound Specimen(s): other (Partial mastectomy, nonhealing wound, marked with long stitch lateral, short stitch superior) Estimated Blood Loss (mL): 1 Procedure in detail: The patient was brought into the OR and placed supine on the OR table. Sequential compression devices were placed on both legs and turned on. General anesthesia was induced and the patient was intubated by Dr. Fernández. Appropriate perioperative antibiotics were given. Surgical time out was performed. The right breast was prepped and draped in sterile fashion. 0.25% Marcaine with epi was used to infiltrate the area of the planned incision. A 15 blade was then used to make a 10cm curvilinear incision in the skin at this site. Dissection was carried down to through firm dermis and subcutaneous tissue using cautery. The entire wound was dissected out and freed from the surrounding tissue. It was marked for orientation. The remaining wound was examined for hemostasis and then closed using 3-0 Vicryl that was used to then bring together the subcutaneous fat tissue, and to close the dermis. 4-0 Monocryl was used to close the skin with a subcuticular suture. The skin was then sealed with dermabond. A small vessel loop was placed in the wound, exiting laterally through the incision. Dermabond was used to seal the surrounding skin. A dry gauze dressing was placed over the drain. The patient was then awakened from anesthesia and extubated. Needle sponge and instrument counts were correct x 2. The patient was transferred to the PACU in stable condition. Complications: none Post-operative Condition: stable Disposition: PACU
[2020-05-11 15:12] VITALS: BP 148/78; PULSE 85; RESP 12; O2SAT 94
[2020-05-11 15:16] VITALS: BP 149/108; PULSE 84; RESP 20; O2SAT 94
[2020-05-11 15:32] VITALS: BP 139/84; PULSE 90; RESP 16; TEMP 36.4; O2SAT 95
--- NOTE | 2020-05-11 15:52 | SUR.PHASEII ---
JUST PRIOR TO D/C PT C/O PAIN IN BACK OF RIGHT CALF STATING IT WASNT THERE BEFORE, NO REDNESS OR SWELLING NOTED ON CALF, PT ABLE TO WALK. DR ZARAGOZA CALLED AND NOTIFIED, PT ADVISED SHE CAN GO HOME AND MONITOR THIS OR WAIT FOR DR TO FINISH HER CASE. PT OPTED TO GO HOME AND MONITOR THIS.
== END 2020-05-11 15:51 | disposition home or self-care (01) ==
PROVIDERS: PCP Nurse Practitioner; Referring Provider Surgery; Visit Provider Surgery
PROC: 0HTT0ZZ Resection of Right Breast, Open Approach (ICD-10-PCS; CPT 19303; principal; 2020-05-11 13:45)
DX: L90.5 Scar conditions and fibrosis of skin (principal); C50.911 Malignant neoplasm of unspecified site of right female breast; I10 Essential (primary) hypertension; I25.10 Atherosclerotic heart disease of native coronary artery without angina pectoris; E66.9 Obesity, unspecified; Z87.891 Personal history of nicotine dependence; I25.2 Old myocardial infarction
CPT/HCPCS: 19301; 93005; 93010; C9290; J0690; J1100; J2250; J2405; J2704; J3010

== ENCOUNTER → 2020-07-29 11:38 | Outpatient (CLI) | payer MEDICARE, OTHER, SELFPAY ==
[2020-01-04 09:17] VITALS: BMI 36.5
--- NOTE | 2020-07-29 11:43 | DI.MRI.S_ITS ---
PROCEDURE: MR KNEE RT WO CON INDICATIONS: Unilateral primary osteoarthritis, right knee TECHNIQUE: Noncontrast sagittal PD fast spin echo and T2 fast spin echo with fat saturation, sagittal 3-D FLASH with fat saturation; coronal T1 spin echo and PD fast spin echo with fat saturation, and axial PD fast spin echo with fat saturation through the knee. COMPARISON: CR, XR KNEE ARTHRITIC SERIES BI, 07/20/2020, 13:26 FINDINGS: Image quality: Degraded by motion artifact. Menisci: Medial extrusion of the medial meniscus, which demonstrates amorphous high signal intensity within the anterior horn, body, and posterior horn, demonstrating superior and inferior articular surface extension. Linear horizontal oriented high signal intensity traverses the posterior horn lateral meniscus, demonstrating inferior articular surface extension. Cruciate ligaments: The anterior and posterior cruciate ligaments appear intact. Medial structures: The medial collateral ligament appears intact. Visualized portions of the pes anserinus tendons appear normal. No abnormal bursal fluid. Lateral structures: The lateral collateral ligament, long and short heads of the biceps femoris tendon appear intact. The popliteus tendon appears normal. Iliotibial band appears normal. Anterior structures: The quadriceps and patellar tendons appear intact. Patellar alignment is normal. No femoral trochlear dysplasia or ventral trochlear prominence. No edema in the infrapatellar fat pad. Bones and cartilage: No bone marrow contusions or fractures. Severe tricompartmental periarticular osteophyte formation. Mild subchondral degenerative marrow edema within the anterior weight-bearing aspects of the medial femoral condyle and medial tibial plateau. Severe articular cartilage loss diffusely overlying the weight-bearing aspects of the medial femoral condyle and medial tibial plateau. Mild articular cartilage loss overlies the lateral patellar facet. Joint space: There is a small knee joint effusion and a trace Carter's cyst. Normal appearing synovial plicae are incidentally noted. IMPRESSION: 1. Tricompartmental osteoarthritis with associated articular cartilage loss. 2. Medial and lateral meniscal tearing. 3. Knee joint effusion and Carter's cyst. Dictated by: Ning Peraza M.D. on 07/29/2020 at 14:29 Approved by: Ning Peraza M.D. on 07/29/2020 at 14:32
== END ==
PROVIDERS: PCP Nurse Practitioner; Referring Provider Orthopaedic Surgery; Visit Provider Orthopaedic Surgery
DX: M17.11 Unilateral primary osteoarthritis, right knee (principal); S83.241A Other tear of medial meniscus, current injury, right knee, initial encounter; S83.281A Other tear of lateral meniscus, current injury, right knee, initial encounter; M71.21 Synovial cyst of popliteal space [Baker], right knee; M25.461 Effusion, right knee
CPT/HCPCS: 73721

== ENCOUNTER → 2020-08-04 11:39 | Outpatient (CLI) | payer MEDICARE, OTHER, SELFPAY ==
[2020-01-04 09:17] VITALS: BMI 36.5
[2020-08-04 12:00] LABS: Bacteria Urine None Seen; RBC Urine None Seen (0-5/HPF); WBC Urine None Seen (0-5/HPF)
[2020-08-04 12:33] LABS: Add Manual Diff / Slide Review NO; Basophils Absolute Auto 0 /uL (0-100); Basophils Percent Auto 0.9 % (0-2); Eosinophils Absolute Auto 100 /uL (0-450); Eosinophils Percent Auto 1.3 % (2-4); Hematocrit 39.9 % (36-46); Lymphocytes Absolute Auto 1600 /uL (1100-4500); Lymphocytes Percent Auto 29.6 % (25-40); Mean Corpuscular HGB Conc 32.6 % (30-36); Mean Corpuscular Hemoglobin 33.2 PG (26-34); Mean Corpuscular Volume 101.8 fL (80-100); Monocytes Absolute Auto 500 /uL (0-900); Monocytes Percent Auto 9.5 % (3-14); Neutrophils Absolute Auto 3200 /uL (1500-7000); Neutrophils Percent Auto 58.7 % (50-75); Platelet Count 227 X10^3/uL (150-400); Red Blood Cell Count 3.91 X10^6/uL (4.0-5.2); Red Cell Distribution Width 14.4 % (11.6-14.8); White Blood Cell Count 5.4 X10^3/uL (4.5-11.0)
[2020-08-04 13:01] LABS: BUN Creatinine Ratio 20.6 (6-22); Blood Urea Nitrogen 14 mg/dL (7-17); Calcium 8.8 mg/dL (8.4-10.2); Carbon Dioxide 28 mmol/L (22-32); Chloride 104 mmol/L (98-107); Estimated Glomerular Filt Rate > 60.0 mL/min (>60); Glucose 116 mg/dL (80-110); HEMOLYSIS < 15 (0-50); Potassium 4.1 mmol/L (3.4-5.1); Sodium 137 mmol/L (137-145)
[2020-08-04 13:02] LABS: Appearance Urine UA CLEAR; Bilirubin Urine UA NEGATIVE (NEGATIVE); Color Urine UA YELLOW; Glucose Urine UA TRACE g/dL (Negative); Ketones Urine UA NEGATIVE (NEGATIVE); Leukocyte Esterase Urine UA NEGATIVE (NEGATIVE); Nitrite Urine UA NEGATIVE (Negative); Occult Blood Urine UA NEGATIVE (Negative); Protein Urine UA NEGATIVE (Negative); Urobilinogen Urine UA 0.2 E.U./dL (0.2)
[2020-08-04 13:03] LABS: Hemoglobin A1C% w Est Avg Glu 5.5 % (4.0-6.0)
[2020-08-04 13:20] LABS: Culture Indicated Urine Cult Not Indicated; Urine Comments Microscopic Normal; pH Urine UA 5.5 (4.5-8.0)
== END ==
PROVIDERS: PCP Nurse Practitioner; Referring Provider Orthopaedic Surgery; Visit Provider Orthopaedic Surgery
DX: Z01.818 Encounter for other preprocedural examination (principal); R73.9 Hyperglycemia, unspecified; Z01.812 Encounter for preprocedural laboratory examination; N39.0 Urinary tract infection, site not specified
CPT/HCPCS: 36415; 80048; 81001; 83036; 85025; 93005; 93010

== ENCOUNTER → 2020-09-05 11:01 | Outpatient (CLI) | payer MEDICARE, OTHER, SELFPAY ==
[2020-01-04 09:17] VITALS: BMI 36.5
[2020-09-05 12:43] LABS: COVID19 -Nasal RAPID Negative (Negative)
== END ==
PROVIDERS: PCP Nurse Practitioner; Visit Provider Physician Assistant
DX: Z20.822 Contact with and (suspected) exposure to COVID-19 (principal)
CPT/HCPCS: 87635; C9803

== ENCOUNTER 2020-09-07 15:44 | Observation (INO) | payer MEDICARE, OTHER, SELFPAY ==
[2020-01-04 09:17] VITALS: BMI 36.5
[2020-09-06] VITALS (13 sets, daily range): BP systolic 120–158; BP diastolic 64–96; PULSE 72–88; RESP 10–18; TEMP 35.6–37; O2SAT 92–98; BMI 38.6
--- NOTE | 2020-09-06 06:00 | DI.RAD.S_ITS ---
PROCEDURE: XR KNEE RT 1TO2V INDICATIONS: post op TKA TECHNIQUE: 2 view(s) of the knee acquired. COMPARISON: [facility], MR, MR KNEE RT WO CON, 07/29/2020, 12:11. [facility] [place], CR, XR KNEE ARTHRITIC SERIES BI, 07/20/2020, 13:26. FINDINGS: Bones: Patient is status post knee joint arthroplasty. Hardware components are in expected positions. Visualized bony structures are intact. Soft tissues: Overlying postoperative changes are noted. IMPRESSION: Expected immediate postoperative appearance of right TKA. Dictated by: Mark Olivarez [facility] Interpreted: Kayla Romano MD on 09/06/2020 at 16:55 Approved by: Kayla Romano M.D. on 09/06/2020 at 17:05
[2020-09-06] MEDS: LACTATED RINGERS 1,000 ML 42 ML IV ×2 (11:36→14:42)
[2020-09-06] MEDS: ACETAMINOPHEN 325 MG TABLET 975 MG PO (11:37)
[2020-09-06] MEDS: VANCOMYCIN 1,000 MG/200 ML PIGGYBACK 200 MG IV (11:37)
--- NOTE | 2020-09-06 13:45 | P.OP_ITS ---
Operative Date/Time/Diagnoses Date of procedure: 09/06/20 Time of procedure: 13:59 Pre-op diagnosis: right knee osteoarthritis severe, left wrist ganglion cyst volar Post-op diagnosis: same Procedure & Clinicians Procedure: right total knee arthroplasty. Aspiration and injection left wrist Same procedure as scheduled: Yes Indications: The patient has had progressively worsening right knee pain with radiographic changes consistent with arthritis. Non-operative management has failed and the patient has requested total knee replacement. The risks, benefits and alternatives to surgery were discussed with the patient prior to proceeding. Risks discussed included, but were not limited to, failure to relieve pain, stiffness, infection, nerve damage, deep venous thrombosis, pulmonary embolism, stroke, coma, heart attack, permanent paralysis and , as well as the potential need for eventual revision of the prosthetic. she also has a cyst on her left wrist that we decided we would aspirate when she has anesthesia and injected it with cortisone. Surgeon: Claudia Miramontes Siderographist: Michelle Harmon Anesthesia Type: General and Spinal Operative Notes Findings: severe right knee osteoarthritis, adequate stability, ganglion fluid left wrist Closure Type: primary Specimen(s): none sent Prosthetic devices, grafts, tissues, transplants, or devices: Miramontes and nephew size 4 femur, size 4 tibia, +9 poly, 32 by 7-1/2 mm patella Applied: drain(s) Estimated Blood Loss (mL): 250 Blood products transfused: none Tourniquet time (min): 84 Procedure in detail: The patient was seen in the pre-operative area, where the patient identified the right knee as the operative site and this was marked with my initials. The patient received pre-operative antibiotics, and was taken to the operating room and placed on the operative table in the supine position. After satisfactory anesthesia, a dry cleaner apprentice out was performed. 1st the left wrist was carefully aspirated. It was prepped with ChloraPrep. 22 gauge needle then was gently inserted into the ganglion fluid was aspirated. It was injected with Marcaine and 2 mg Decadron. Next, The right leg was encircled with a tourniquet about the proximal thigh, and the leg was prepared from the toes to the tourniquet with ChloroPrep in the usual fashion and draped through sterile drapes. The leg was elevated and exsanguinated with Eschmark bandage and the tourniquet inflated to [250] mmHg pressure. The knee was approached through an approximately 18 cm incision centered over the patella and carried into the knee through a medial parapatellar arthrotomy. A portion of the medial and lateral meniscus was resected. Soft tissue was carefully mobilized around the patella the patella was measured with a caliper. Bone was resected from the patella and the patellar height was reconstituted with up an appropriate sized patellar component. A cover was then placed on the patella. A small amount of additional medial and lateral meniscus was resected. The visionare guide fit well to the distal femur. It looked like an appropriate distal femoral cut and the cut was made without difficulty. The rotation was assessed and the appropriate size femoral guide was placed on the distal femur and finishing cuts were made. There was no evidence of notching. The anterior, posterior and chamfer cuts were then made. The posterior osteophytes and soft tissues were then removed. The posterior capsule was injected with part of a mixture of 60 ml 0.25% Marcaine mixed with 20 ml Exparel for post operative pain control. The remainder of this mixture was injected into the capsule and subcutaneous tissues during cement curing. The tibia was prepared and the visionaire guide fit well to the distal tibia. The rotation was assessed. The patient was placed in extension residual medial and lateral meniscus as well as any residual bone was carefully resected. [No] additional tibia was resected. Hemostasis was achieved especially posteriorly. Additional local was injected into the posterior capsule. The extension gap was assessed and additional releases for gap balancing were performed as necessary. It was checked with the gap oxygen equipment aide. The femoral component was trial was placed and the notch was finished. Trial tibial and femoral components were then placed and the knee placed through a range of motion. Range of motion was [0-125], with good stability throughout the range. The trials were then removed, and the tibia was finished. The bone was prepared with pulsatile lavage, and dried with a sponge. Cement was applied and the final prosthetics placed. Excess cement was removed during and after cement curing. A brief Betadine soak was performed. After confirming there was no extruded cement posteriorly, the final tibial insert was placed. The knee was copiously irrigated and the tourniquet deflated. Hemostasis was obtained with the bovie cautery. A drain was placed and brought out superolaterally. The capsule was closed with interrupted Vicryl suture. The subcutaneous layer was closed with barbed sutures, and the skin with a running 3-0 V-Lock suture and Surgical glue. An Felton dressing was applied and the patient was taken to recovery having tolerated the procedure well. Complications: none Post-operative Condition: stable Disposition: Acute Care Plan for aftercare: The patient will be maintained on a standard total knee replacement protocol with weight bearing as tolerated. The patient will receive aspirin and sequential compression devices for DVT prophylaxis. The patient will be discharged home when safe for the home environment.
--- NOTE | 2020-09-06 13:45 | PM.PREOP ---
Pre-operative Note COVID-19 COVID-19 status: Negative Interval Note History & Physical reviewed/Exam performed by Physician: Yes Changes to H&P: No
[2020-09-06] MEDS: CEFAZOLIN 2 GM/100 ML FROZ.PIGGY IV ×2 (13:55→22:23)
--- NOTE | 2020-09-06 14:24 | SUR.OPER ---
Supine on padded OR bed. Pillow under head, arms secured on padded armboards <90 degree abduction. Safety belt across torso. Non-operative leg secured with tape over blanket over lower leg. Operative leg secured in DeMayo positioner. Foam padded brace at thigh of operative leg.
[2020-09-06] MEDS: BUPIVACAINE 0.25% W/ EPI 30 ML VIAL 60 ML INJ (14:33)
[2020-09-06] MEDS: TRANEXAMIC ACID 1,000 MG VIAL 2000 MG INJ ×2 (14:34→16:17)
[2020-09-06] MEDS: BUPIVACAINE LIPOSOME 266 MG/20 ML VIAL INJ (14:34)
[2020-09-06] MEDS: TRANEXAMIC ACID 1,000 MG VIAL 1000 MG IV (14:35)
[2020-09-06] MEDS: SODIUM CHLORIDE IRRIG SOLUTION 250 ML, POVIDONE-IODINE SPONGE STICKS 1 APPLIC IRR (14:36)
[2020-09-06] MEDS: DEXAMETHASONE 10 MG/ML VIAL IV (14:38)
--- NOTE | 2020-09-06 17:00 | SUR.PHASEI ---
Report to Екатерина GRADY. Preparing for transport to room 206, pt in stable condition.
[2020-09-06] MEDS: LACTATED RINGERS 1,000 ML 100 ML IV (18:45)
[2020-09-06] MEDS: ACETAMINOPHEN 325 MG TABLET 650 MG PO (20:15)
[2020-09-06] MEDS: ASPIRIN EC 81 MG TABLET PO (20:15)
[2020-09-06] MEDS: CALCIUM CARBONATE 600 MG TABLET 300 MG PO (20:15)
[2020-09-06] MEDS: DOCUSATE 100 MG CAPSULE PO (20:16)
[2020-09-06] MEDS: diphenhydrAMINE 25 MG TABLET PO (21:05)
[2020-09-06] MEDS: OXYCODONE IR 5 MG TABLET PO (22:21)
[2020-09-06] MEDS: MELATONIN 3 MG TABLET 6 MG PO (22:24)
[2020-09-07] MEDS: CEFAZOLIN 2 GM/100 ML FROZ.PIGGY IV (05:13)
[2020-09-07] MEDS: OXYCODONE IR 5 MG TABLET PO ×4 (05:20→16:30)
[2020-09-07 06:33] LABS: Hematocrit 35.4 % (36-46); Hemoglobin 11.8 g/dL (12.0-16.0)
[2020-09-07 06:34] VITALS: BP 139/78; PULSE 85; RESP 16; TEMP 36.2; O2SAT 93
--- NOTE | 2020-09-07 07:30 | PM.DS.1 ---
History of Present Illness History of Present Illness Date Patient Seen: 09/07/20 Time Patient Seen: 07:30 Chief complaint: Right Total Knee Arthroplasty *OPB* Narrative: Patient's pain is mild. Denies fever or chills. No shortness of breath or chest pain. Patient has been using bed pain. Her is home to assist her. She has 2 steps into her house. She had her other knee done a few months ago and did well. She would like to go home today if safe to do so. Discharge Providers Provider Discharge Date: 09/07/20 Primary care physician: TALISHA Wolfe Consults: 09/02/20 13:39 Consult to Anesthesiology Routine Comment: Consulting Provider: Marisela Juares Reason for consultation: Cardiac/bradycardia; Hx of Chest pain 09/06/20 06:00 Consult to Anesthesiology Routine Comment: Consulting Provider: Anesthesiologist Reason for consultation: Regional block for post operative pain control 09/06/20 17:20 Consult to Discharge Planning Routine Comment: Consult to Physical Therapy Evaluate & Treat Comment: Physician Instructions: postop TKA protocol Consult to Respiratory Therapy Evaluate & Treat Comment: Physician Instructions: Evaluate and treat Discharge provider: Tim Alarcon PA-C Summary Hospital Course Discharge Diagnosis: Right knee severe osteoarthritis, left wrist ganglion cyst volar aspect BMI 38.6 Hospital Course: Procedure: right total knee arthroplasty. Aspiration and injection left wrist Same procedure as scheduled: Yes Indications: The patient has had progressively worsening right knee pain with radiographic changes consistent with arthritis. Non-operative management has failed and the patient has requested total knee replacement. The risks, benefits and alternatives to surgery were discussed with the patient prior to proceeding. Risks discussed included, but were not limited to, failure to relieve pain, stiffness, infection, nerve damage, deep venous thrombosis, pulmonary embolism, stroke, coma, heart attack, permanent paralysis and , as well as the potential need for eventual revision of the prosthetic. she also has a cyst on her left wrist that we decided we would aspirate when she has anesthesia and injected it with cortisone. Surgeon: Claudia Miramontes Internal Communications Intern: Michelle Harmon Anesthesia Type: General and Spinal Operative Notes Findings: severe right knee osteoarthritis, adequate stability, ganglion fluid left wrist Closure Type: primary Specimen(s): none sent Prosthetic devices, grafts, tissues, transplants, or devices: Miramontes and nephew size 4 femur, size 4 tibia, +9 poly, 32 by 7-1/2 mm patella Applied: drain(s) Estimated Blood Loss (mL): 250 Blood products transfused: none Tourniquet time (min): 84 Patient status post right total knee arthroplasty, aspiration and injection left wrist ganglion, volar aspect. Patient progressing as expected. Patient to mobilize with physical therapy. Patient be discharged home today if cleared by Physical therapy. Exam Vital Signs (past 8 hours): - 09/06/20 23:40 09/07/20 06:34 Temperature 98.6 F 97.2 F L Pulse Rate 88 85 Respiratory Rate 18 16 Blood Pressure 158/74 H 139/78 Pulse Oximetry 93 93 Oxygen Delivery Method Room Air Oxygen Flow Rate 0 Narrative Exam Narrative: Pleasant 74-year-old female resting comfortably in bed in no apparent distress. Right knee liu dressing is clean, dry and intact. Motor function is intact distal right lower extremity. Sensation grossly intact to light touch distal left lower extremity. Both legs are warm and dry. Left wrist volar aspect shows a 2 cm nodule slightly fluctuant and tender to palpation. Early ecchymosis present. Suspect small hematoma. Objective Labs Result Diagrams: 09/07/20 06:05 Labs: Laboratory Results - last 24 hr 09/07/20 06:05 Hgb 11.8 L Hct 35.4 L PFSH Medical History Anxiety Bilateral cataracts Bilateral mastodynia Bradycardia Breast lump in female Bronchitis Bruises easily Chronic headaches Chronic pain Compression fracture Compression fracture of body of thoracic vertebra Difficulty swallowing Edema Fibromyalgia Former smoker Frequent PVCs Gastritis GERD (gastroesophageal reflux disease) Hypercholesterolemia Hyperlipidemia Hypertension Insomnia Irregular heartbeat Menopause (1974) Migraines Myocardial infarction (2015) Numbness Osteoarthritis PVCs (premature ventricular contractions) SOB (shortness of breath) Spinal stenosis Unilateral primary osteoarthritis, right knee Urinary incontinence UTI (urinary tract infection) Surgical History H/O arthroscopic knee surgery History of colonoscopy History of esophagogastroduodenoscopy (EGD) History of total knee arthroplasty (01/28/18) Hx of partial mastectomy (08/14/19) Hx of thumb surgery S/P foot surgery, right Status post arthroscopy Status post hysterectomy Status post tubal ligation (1974) Family History Mother Hypertension Stroke Cancer Grandmother Hypertension Heart disease Father Cancer Brother Cancer Social History marital status: household members: spouse lives independently: Yes caregiver/support person: No housing: house Smoking Status: Former smoker second hand exposure: No alcohol intake: current substance use type: does not use Discharge Assessment & Plan Assessment and Plan Assessment: Patient progressing as expected status post right total knee arthroplasty. Patient is status post aspiration injection left wrist with a small hematoma. Plan of Treatment: Patient to mobilize physical therapy. Discharge home today in stable condition and if cleared by Physical therapy. Regarding her left wrist. Return to clinic as soon as possible if any redness, increased pain, fever chills. Discharge Plan Discharge Plan Patient Disposition: Home Provider Discharge Comment: discharge to home when cleared by Physical therapy Discharge orders & Medications Discharge Orders: Discharge (Order); Ordered 09/07/20 Ordered By: Tim Alarcon Prescriptions: New acetaminophen 325 mg Tablet 650 mg PO TID Qty: 60 RF: 0 polyethylene glycol 3350 17 gram Powder In Packet 17 gm PO DAILY PRN (Reason: Constipation) Qty: 10 RF: 1 aspirin 81 mg Tablet,Delayed Release (Dr/Ec) 81 mg PO BID Qty: 60 RF: 0 oxycodone 5 mg Tablet 5 mg PO Q3HR PRN (Reason: Pain, Moderate (4-6)) Qty: 45 RF: 0 Continued albuterol sulfate [Ventolin HFA] 90 mcg/actuation HFA aerosol inhaler 1 - 2 puff INHALATION EVERY 4-6 HR PRN (Reason: sob) Qty: 8.5 RF: 3 multivitamin [Daily Multi-Vitamin] tablet 1 tab PO DAILY RF: 0 cholecalciferol (vitamin D3) 1,000 unit capsule 1,200 unit PO DAILY RF: 0 calcium carbonate [Calcium 600] 600 mg calcium (1,500 mg) tablet 300 mg PO BID RF: 0 tamoxifen 20 mg Tablet 20 mg PO DAILY Qty: 90 RF: 3 diltiazem HCl 120 mg capsule,extended release 12 hr 240 mg PO DAILY RF: 0 melatonin 5 mg Tablet 5 mg PO BEDTIME PRN (Reason: INSOMNIA) RF: 0 docusate sodium 100 mg capsule 100 mg PO BID PRN (Reason: Constipation) RF: 0 Discontinued acetaminophen 325 mg capsule 650 mg PO BID RF: 0 aspirin 81 mg Tablet 81 mg PO DAILY RF: 0 Follow up/Referrals: Melvina Penny ARNP [Primary Care Provider] - Claudia Miramontes MD [Physician] - (1 week for LIU dressing check) Diet/Activity/Treatments Diet: Diet as Tolerated Activity: walk as tolerated multiple times a day. Cold/Heat Therapy: Use ice on knee multiple times a day. Skin/Wound/Dressing Care Skin care: Okay to shower. Report to your healthcare provider any signs of infection, such as:: chills, fever, night sweats, increased pain, unusual drainage and unusual redness Dressing: Remove Ronan wrap. Leave other dressing on. Okay to shower. Visit Report/Discharge Packet Instructions: DI for Knee Replacement Stand Alone Forms: Surgery Discharge Discharge Data Primary Care Provider: Melvina Penny Attending Provider: Claudia Miramontes Quality VTE Deep Vein Thrombosis/Pulmonary Embolism Present on Admission: No
[2020-09-07 07:55] VITALS: BP 130/73; PULSE 83; RESP 15; TEMP 36.6; O2SAT 93
--- NOTE | 2020-09-07 08:52 | CM.IDA ---
Addendum entered by BENITEZ Beasley 09/08/20 15:43: DC home today, no needs indicated from this DIRECTOR OF PRECLINICAL RESEARCH, cleared by therapies for return home. Original Note: Initial DCP Assessment Note Pt is a 74 yo female, resident of [place], now POD#1 from Right Total Knee Arthroplasty w/ Dr Miramontes PCP: Melvina Penny Payer: MCR/JOSE [employer]/ [employer] Therapy pending this morning, DC order from Ortho has already been initiated this morning. Patient hopeful to return home w/spouse and son to assist Baljit (), Jimbo (son), Baljit [phone]; Jimbo [phone] No needs expected from DC planning team although will remain available in case this changes today. Therapies are still pending this morning BENITEZ Beasley
[2020-09-07] MEDS: ACETAMINOPHEN 325 MG TABLET 650 MG PO ×3 (09:15→20:43)
[2020-09-07] MEDS: ASPIRIN EC 81 MG TABLET PO ×2 (09:19→20:42)
[2020-09-07] MEDS: CALCIUM CARBONATE 600 MG TABLET 300 MG PO ×2 (09:19→20:43)
[2020-09-07] MEDS: CHOLECALCIFEROL (VITAMIN D3) 1,000 UNIT TABLET 1200 UNIT PO (09:20)
[2020-09-07] MEDS: DOCUSATE 100 MG CAPSULE PO ×2 (09:21→20:42)
[2020-09-07] MEDS: TAMOXIFEN 10 MG TABLET 20 MG PO (09:21)
[2020-09-07] MEDS: MULTIVITAMIN 1 TABLET 1 TAB PO (09:21)
[2020-09-07] MEDS: dilTIAZem CD 240 MG CAP PO (09:33)
--- NOTE | 2020-09-07 10:48 | PT.IIE ---
Current Diagnoses Obesity, unspecified (09/06/20) Cardiac arrhythmia, unspecified (09/06/20) Unilateral primary osteoarthritis, right knee (09/06/20) Shortness of breath (09/06/20) Personal history of nicotine dependence (09/06/20) Surgery Performed Operation Date: 09/06/20 13:15 Actual Procedures p Total Knee Arthroplasty(Right) - Claudia Miramontes MD s Ganglion Excision Wrist(Left) - Claudia Miramontes MD Surgical History (Last Reviewed 09/07/20 @ 07:37 by Tim Alarcon PA-C) H/O arthroscopic knee surgery History of colonoscopy History of esophagogastroduodenoscopy (EGD) History of total knee arthroplasty (01/28/18) Hx of partial mastectomy (08/14/19) Hx of thumb surgery S/P foot surgery, right Status post arthroscopy Status post hysterectomy Status post tubal ligation (1974) Medical History (Last Reviewed 09/07/20 @ 07:37 by Tim Alarcon PA-C) Anxiety Bilateral cataracts Bilateral mastodynia Bradycardia Breast lump in female Bronchitis Bruises easily Chronic headaches Chronic pain Compression fracture Compression fracture of body of thoracic vertebra Difficulty swallowing Edema Fibromyalgia Former smoker Frequent PVCs Gastritis GERD (gastroesophageal reflux disease) Hypercholesterolemia Hyperlipidemia Hypertension Insomnia Irregular heartbeat Menopause (1974) Migraines Myocardial infarction (2015) Numbness Osteoarthritis PVCs (premature ventricular contractions) SOB (shortness of breath) Spinal stenosis Unilateral primary osteoarthritis, right knee Urinary incontinence UTI (urinary tract infection) Physical Therapy Inpatient Evaluation/Re-Eval M1 PT/OT-IP Prior Functional Status Start: 09/07/20 08:30 Freq: NEEDED Status: Active Protocol: Document 09/07/20 10:34 (Rec: 09/07/20 10:48 [id number]) Medical Review Prior Functional Status Medical History Reviewed Yes Diet/Fluid Consistency Regular Communication no deficits noted. Mobility and Gait difficulty with prolonged standing, stair climbing and pivoting prior to sx. Able to amb up to 100 ft at a time without AD but limping Activities of Daily Living and IADL's I for ADLs and does help with house cleaning, laundry soemtimes. Prior Functional Level (Other details) had L TKA 2017 Social History Household Members spouse Living Arrangements House Number of Floors (Floors) One Floor Number of Stairs To Enter/Railing? 2 small steps (threshold) with R rail to front entrance Home Environment Standard Height Toilet,Walk in Shower Home Equipment Front Wheel Walker,Straight Cane,Bedside Commode,Shower Seat with Backrest,Hand Held Shower,Grab Bars In Shower Employment Status Retired Additional Social History Comment pt lives with her 87 yo healthy and active who will be available to assist as needed. Son lives closeby and will able to assist as well. M2 PT-IP Current Condition Start: 09/07/20 08:30 Freq: NEEDED Status: Active Protocol: Document 09/07/20 10:34 (Rec: 09/07/20 10:48 [email or web address]) Physical Therapy Current Condition Current Condition Evaluation Date 09/07/20 Treatment Diagnosis R TKA, difficulty in walking Onset Date 09/06/20 Weight Bearing Status Weight Bearing Status Weight Bear as Tolerated M3 PT-IP Subjective Start: 09/07/20 08:30 Freq: NEEDED Status: Active Protocol: Document 09/07/20 10:34 (Rec: 09/07/20 10:48 [email or web address]) Subjective Physical Therapy Visit Type Type Initial Evaluation Visit Start Time 09:07 Visit Stop Time 09:45 Total Visit Minutes 38 Number of COPY EDITOR Visits 0 Physical Therapy Visit Comments Patient Comments My knee is really hurting right now. 7.5/ 10 Therapy Pain Assessment Pain When Pain Assessed At Rest Pain Present Pain Present Pain Reported Location Right Knee Intensity 8 Scale Used Numeric (0 - 10) Description Aching,Acute,With Movement Pain Behaviors Facial Grimacing,Guarding Pain Management Techniques Apply Cold,Timing of Activity with Medications M4 PT-IP Mobility and Gait Start: 09/07/20 08:30 Freq: NEEDED Status: Active Protocol: Document 09/07/20 10:34 (Rec: 09/07/20 10:48 [email or web address]) PT-Bed Mobility Assessment Supine to Sit Supine to Sit Contact Guard Assistance,Head of Bed Elevated,Bedrails Scooting Scooting to Edge of Bed Contact Guard Assistance PT-Transfer Assessment Sit to and From Stand Sit to and from Stand Contact Guard Assistance,1 Person Assistance,Use of Upper Extremities Equipment Transfer Assistive Device Gait Belt,Front Wheeled Walker Orthotic/Prosthetic Devices or Brace: No Transfers Transfer Destination Bed,Chair Transfer Technique Stand Step Pivot Transfer Ability Level of Assist Contact Guard Assistance,1 Person Assistance,Use of Upper Extremities Comments Mobility Comments pt was in bed upon PT arrival. RN was delivering meds at the same time. BP 142/80 in supine. Pt c/o pain at 7.5/10 . She agreed to mobilize with PT. Pt rolled to her L side with L bed rail followed by slowly pivoting her RLE to EOB and sat up CGA. Practiced seated heel slide to warm up then she was able to stand up with staggered stance with FWW CGA. Pt then walked with step to pattern to bathroom for toileting. She needed grab bar and FWW CGA for descend with stagger stance. Pt voided and used grab bar and FWW to stand up and cont amb CGA. Pt walked another 20 ft and decided to return d/t increased pain. Pt tended to walk with ER RLE and step to pattern. She returned to chair after with proper use of armrest for descent. Michael at 160 /75 HR110 at rest. Call lgith placed within reach. pain at 8 /10 Gait Assessment Gait Gait Assistance Required: Contact Guard Assist Distance (Feet) 40 Able to Maintain Weight Bearing Status Yes During Gait Assistive Devices Assistive Device Gait Belt,Front Wheeled Walker Orthotic/Prosthetic Devices or Brace: No Gait Deviations General Gait Pattern Antalgic,Decreased Stride Length,Decreased Feet Clearance,Flexed Trunk,Step-to Gait Factors Limiting Gait Function Factors Limiting Gait Function Decreased Activity Tolerance, Decreased Strength,Limited Range of Motion,Pain,Poor Balance Comments Gait Comments see mobility comments. Stair Climbing Assessment Comments Stair Climbing Comments did not assess d/t pain PT-Balance Assessment Sitting Balance and Reactions Static Sitting Balance Ability Normal Dynamic Sitting Balance Ability Normal Standing Balance and Reactions Static Standing Balance Ability Good Dynamic Standing Balance Ability Fair Device Used FWW M5 PT-IP Objective Assessments Start: 09/07/20 08:30 Freq: NEEDED Status: Active Protocol: Document 09/07/20 10:34 (Rec: 09/07/20 10:48 [email or web address]) Orientation Orientation/Cognition Level of Alertness Alert Orientation Name,Age,Birthday,Month,Date, Year,Day of Week,Place, Situation Language Function Ability No Deficits Noted Safety Awareness Understands Safety Issues Memory Description No Deficits Noted Gross Range of Motion Upper Extremity ROM Assessment Within Functional Limits Lower Extremity ROM Assessment Right Impaired Impairments 8 - 60 AROM Strength Upper Extremity Strength Assessment Within Functional Limits Lower Extremity Strength Assessment Right Impaired Hip 4/5 Knee 3/5 Coordination Assessment Gross Coordination Gross Coordination WNL Sensation Assessment Sensation Gross Sensation WNL Muscle Tone Muscle Tone WNL Yes M6 PT-IP Treatment Start: 09/07/20 08:30 Freq: NEEDED Status: Active Protocol: Document 09/07/20 10:34 (Rec: 09/07/20 10:48 [email or web address]) Physical Therapy Treatment Exercises Exercises Ankle Pumps,Gluteal Sets,Quad Sets,Heel Slides Education Education Provided Precautions,Weight Bearing Status,Post-Op Packet,Safety M7 PT-IP Assessment and Plan Start: 09/07/20 08:30 Freq: NEEDED Status: Active Protocol: Document 09/07/20 10:34 HH (Rec: 09/07/20 10:48 [email or web address]) PT Summary Assessment and Plan Potential Rehabilitation Potential Excellent Status of Condition at Evaluation Stable Summary Impairments Pain,ROM,Strength,Balance,Bed Mobility,Transfers,Gait, Activity Tolerance Assessment Summary This is a low complexity for this 74yo female s/p POD1 RTKA . PLOF= difficulty for WB activities but did not need AD . independent for ADLs but some assistance for IADLs from . Upon assessment, pt was CGA for bed mobility and ambulation with FWW. She walked 40 ft but small steps slowly d/t significant pain 8/ 10 at this point. Expect to complete steps prior to DC once her pain is more controlled. Also expect to DC home with assistance and outpatient PT to improve mobility and strength. Goals Bed Mobility Goal Standby Assistance Transfer Goal Standby Assistance,Front Wheeled Walker Gait Goal Standby Assistance,Front Wheel Walker Gait Distance 100 Other Goals 2 small steps with R rail Days to Meet Goals 2 Frequency of Treatment Frequency Of Treatment Twice a Day Treatment Plan Physical Therapy Treatment Plan Bed Mobility Training,Transfer Training,Gait Training, Therapeutic Exercise,Balance Retraining,Post Op Education, Discharge Planning,Hot or Cold Pack,Neuromuscular Re-ed Other Recommendations and Next Treatment check vitals Focus ROM ex mioboiltiy as phillip 2 small steps climbing with R rail Recommendations To Nursing Amount of Assist Needed 1 Person Assist Discharge Recommendations PT Discharge Recommendations Home with Assistance, Outpatient PT Transportation Needs at Discharge Private Vehicle
[2020-09-07 13:35] VITALS: BP 160/75; PULSE 110; RESP 17; TEMP 36.6; O2SAT 94
--- NOTE | 2020-09-07 15:22 | PT-IP ANOTE ---
attempted to see pt in two different times 1330 and 1510. Pt refused d/t severe pain 04/28 who can minimally bend her R knee. Pt did get up to use the bathroom with nursing. Educated pt to practice ROM ex in bed/ in chair. Will see her in am tomorrow.
[2020-09-07 16:04] VITALS: BP 142/74; PULSE 77; RESP 20; TEMP 35.9; O2SAT 96
[2020-09-07 19:48] VITALS: BP 139/83; PULSE 77; RESP 20; TEMP 36.4; O2SAT 94
[2020-09-07] MEDS: OXYCODONE IR 10 MG TABLET PO (20:46)
[2020-09-07 23:54] VITALS: BP 130/93; PULSE 71; RESP 16; TEMP 36.6; O2SAT 95
[2020-09-08] MEDS: OXYCODONE IR 10 MG TABLET PO (00:07)
[2020-09-08 03:00] VITALS: BP 159/78; PULSE 76; RESP 16; TEMP 36.6; O2SAT 95
[2020-09-08] MEDS: HYDROMORPHONE 2 MG TABLET PO ×2 (04:55→13:04)
--- NOTE | 2020-09-08 06:56 | PC.NURSE ---
Pt stable through shift. Pain ranges from 4-10/10, able to control with medication. Pt expresses hesitancy concerning PT/OT, pt encouraged to participate as much as possible.
[2020-09-08 07:40] VITALS: BP 132/72; PULSE 73; RESP 17; TEMP 36.4; O2SAT 95
[2020-09-08] MEDS: ACETAMINOPHEN 325 MG TABLET 650 MG PO (08:59)
[2020-09-08] MEDS: CALCIUM CARBONATE 600 MG TABLET 300 MG PO (09:03)
[2020-09-08] MEDS: ASPIRIN EC 81 MG TABLET PO (09:03)
[2020-09-08] MEDS: CHOLECALCIFEROL (VITAMIN D3) 1,000 UNIT TABLET 1200 UNIT PO (09:04)
[2020-09-08] MEDS: DOCUSATE 100 MG CAPSULE PO (09:05)
[2020-09-08] MEDS: MULTIVITAMIN 1 TABLET 1 TAB PO (09:05)
[2020-09-08] MEDS: dilTIAZem CD 240 MG CAP PO (09:05)
[2020-09-08] MEDS: SODIUM CHLORIDE 0.9% FLUSH 10 ML IV (09:06)
--- NOTE | 2020-09-08 09:45 | PT.IPTN ---
Current Diagnoses Obesity, unspecified (09/07/20) Cardiac arrhythmia, unspecified (09/07/20) Unilateral primary osteoarthritis, right knee (09/07/20) Shortness of breath (09/07/20) Personal history of nicotine dependence (09/07/20) Surgery Performed Operation Date: 09/06/20 13:15 Actual Procedures p Total Knee Arthroplasty(Right) - Claudia Miramontes MD s Ganglion Excision Wrist(Left) - Claudia Miramontes MD Physical Therapy Treatment Note M2 PT-IP Current Condition Start: 09/07/20 08:30 Freq: NEEDED Status: Active Protocol: Document 09/07/20 10:34 HH (Rec: 09/07/20 10:48 HH [id number]) Physical Therapy Current Condition Current Condition Evaluation Date 09/07/20 Treatment Diagnosis R TKA, difficulty in walking Onset Date 09/06/20 Weight Bearing Status Weight Bearing Status Weight Bear as Tolerated M3 PT-IP Subjective Start: 09/07/20 08:30 Freq: NEEDED Status: Active Protocol: Document 09/08/20 09:45 [facility] (Rec: 09/08/20 13:45 [facility] [id number]) Subjective Physical Therapy Visit Type Type Treatment Note Visit Start Time 09:12 Visit Stop Time 09:43 Total Visit Minutes 31 Number of HELP DESK INTERNSHIP Visits 0 Physical Therapy Visit Comments Patient Comments Pt reprots she wants to get up and use restroom. (mid getting sitting up out of bed with RN). Reprots she plans to go home today. She will not be walking up steps. Her /son will be pushing her in w/WC like they did after last surgery Therapy Pain Assessment Pain When Pain Assessed During Mobility Pain Present Pain Present Pain Reported Location Right Knee Pain Management Techniques Apply Cold,Elevation M4 PT-IP Mobility and Gait Start: 09/07/20 08:30 Freq: NEEDED Status: Active Protocol: Document 09/08/20 09:45 [facility] (Rec: 09/08/20 13:45 [facility] [id number]) PT-Bed Mobility Assessment Sit to Supine Sit to Supine Standby Assistance Scooting Scooting to Edge of Bed Standby Assistance PT-Transfer Assessment Sit to and From Stand Sit to and from Stand Contact Guard Assistance,Use of Upper Extremities Equipment Transfer Assistive Device Gait Belt,Front Wheeled Walker Orthotic/Prosthetic Devices or Brace: No Transfers Transfer Destination Bed Transfer Technique Stand Step Pivot Transfer Ability Level of Assist Standby Assistance Comments Mobility Comments Pt was already seated EOB from sitting up with RN who reported she was able to do it on her own (bed was flat). Pt scooted to EOB SBA once bed was inflated. Pt did sit to stand SBA to FWW then amb to restroom SBA with FWW. she was able to do sit<>stand to/from toilet SBA and was indep w/ wiping. She then amb to sink to wash hands and brush teeth SBA w/FWW. Pt sat in chair to do exercises then transfered to bed SBA with FWW. Sit to supien SBA w/bed at low position. Pt left with ice on knee and call light in reach. Gait Assessment Gait Gait Assistance Required: Standby Assistance Distance (Feet) 25 Able to Maintain Weight Bearing Status No During Gait Assistive Devices Assistive Device Gait Belt,Front Wheeled Walker Orthotic/Prosthetic Devices or Brace: No Gait Deviations General Gait Pattern Antalgic,Decreased Stride Length,Flexed Trunk,Step-to Gait Factors Limiting Gait Function Factors Limiting Gait Function Decreased Activity Tolerance, Decreased Strength,Limited Range of Motion,Pain,Poor Balance Comments Gait Comments see above Stair Climbing Assessment Comments Stair Climbing Comments not assessed M5 PT-IP Objective Assessments Start: 09/07/20 08:30 Freq: NEEDED Status: Active Protocol: Document 09/07/20 10:34 (Rec: 09/07/20 10:48 [email or web address]) Orientation Orientation/Cognition Level of Alertness Alert Orientation Name,Age,Birthday,Month,Date, Year,Day of Week,Place, Situation Language Function Ability No Deficits Noted Safety Awareness Understands Safety Issues Memory Description No Deficits Noted Gross Range of Motion Upper Extremity ROM Assessment Within Functional Limits Lower Extremity ROM Assessment Right Impaired Impairments 8 - 60 AROM Strength Upper Extremity Strength Assessment Within Functional Limits Lower Extremity Strength Assessment Right Impaired Hip 4/5 Knee 3/5 Coordination Assessment Gross Coordination Gross Coordination WNL Sensation Assessment Sensation Gross Sensation WNL Muscle Tone Muscle Tone WNL Yes M6 PT-IP Treatment Start: 09/07/20 08:30 Freq: NEEDED Status: Active Protocol: Document 09/08/20 09:45 [facility] (Rec: 09/08/20 13:45 [facility] [id number]) Physical Therapy Treatment Exercises Exercises Ankle Pumps,Quad Sets,Heel Slides,Straight Leg Raises, Short Arc Quads,Passive Knee Extension Hang Education Education Provided Post-Op Packet,Safety M7 PT-IP Assessment and Plan Start: 09/07/20 08:30 Freq: NEEDED Status: Active Protocol: Document 09/08/20 09:45 [facility] (Rec: 09/08/20 13:45 [facility] [id number]) PT Summary Assessment and Plan Summary Assessment Summary Pt did well with all mobility with SBA only but activity tolerance limited her session. Pain meds had just been admistered right as pt started PT which likely contributed to dec tolerance but pt is not yet walking distances required of amb in home. She is adament she will not be oding the stairs for a while but that will need to be assessed prior to dc w/family Goals Bed Mobility Goal Standby Assistance Transfer Goal Standby Assistance,Front Wheeled Walker Gait Goal Standby Assistance,Front Wheel Walker Gait Distance 100 Other Goals 2 small steps with R rail Days to Meet Goals 2 Frequency of Treatment Frequency Of Treatment Twice a Day Treatment Plan Physical Therapy Treatment Plan Bed Mobility Training,Transfer Training,Gait Training, Therapeutic Exercise,Balance Retraining,Post Op Education, Discharge Planning,Hot or Cold Pack,Neuromuscular Re-ed Other Recommendations and Next Treatment discuss if realistic for w/c Focus into home, work on inc wakling tolerance Recommendations To Nursing Amount of Assist Needed 1 Person Assist Discharge Recommendations PT Discharge Recommendations Home with Assistance, Outpatient PT Transportation Needs at Discharge Private Vehicle
[2020-09-08] MEDS: TAMOXIFEN 10 MG TABLET 20 MG PO (10:09)
[2020-09-08 11:00] VITALS: BP 130/75; PULSE 75; RESP 16; TEMP 36.6; O2SAT 95
--- NOTE | 2020-09-08 14:22 | PT.IPTN ---
Current Diagnoses Obesity, unspecified (09/07/20) Cardiac arrhythmia, unspecified (09/07/20) Unilateral primary osteoarthritis, right knee (09/07/20) Shortness of breath (09/07/20) Personal history of nicotine dependence (09/07/20) Surgery Performed Operation Date: 09/06/20 13:15 Actual Procedures p Total Knee Arthroplasty(Right) - Claudia Miramontes MD s Ganglion Excision Wrist(Left) - Claudia Miramontes MD Physical Therapy Treatment Note M2 PT-IP Current Condition Start: 09/07/20 08:30 Freq: NEEDED Status: Active Protocol: Document 09/07/20 10:34 HH (Rec: 09/07/20 10:48 HH [email or web address]) Physical Therapy Current Condition Current Condition Evaluation Date 09/07/20 Treatment Diagnosis R TKA, difficulty in walking Onset Date 09/06/20 Weight Bearing Status Weight Bearing Status Weight Bear as Tolerated M3 PT-IP Subjective Start: 09/07/20 08:30 Freq: NEEDED Status: Active Protocol: Document 09/08/20 14:11 AW (Rec: 09/08/20 14:20 AW [id number]) Subjective Physical Therapy Visit Type Type Treatment Note Visit Start Time 13:43 Visit Stop Time 14:00 Total Visit Minutes 17 Number of REPERTOIRE MANAGER Visits 0 Physical Therapy Visit Comments Patient Comments Pt is willing to participate with PT Patient Goals Home today Therapy Pain Assessment Pain When Pain Assessed During Mobility Pain Present Pain Present Pain Reported Location Right Knee Pain Management Techniques Apply Cold,Elevation,Timing of Activity with Medications M4 PT-IP Mobility and Gait Start: 09/07/20 08:30 Freq: NEEDED Status: Active Protocol: Document 09/08/20 14:11 AW (Rec: 09/08/20 14:20 AW [id number]) PT-Transfer Assessment Sit to and From Stand Sit to and from Stand Standby Assistance,Use of Upper Extremities Equipment Transfer Assistive Device Gait Belt,Front Wheeled Walker Orthotic/Prosthetic Devices or Brace: No Transfers Transfer Destination Chair,Toilet Transfer Technique Stand Step Pivot Transfer Ability Level of Assist Standby Assistance Comments Mobility Comments Pt was seated EO after sitting up with RN. Pt completed sit to stand from the bed in lowest position SBA and ambulated with FWW to the toilet SBA. She transferred to and from the toilet SBA with heavy use of left-side grab bar. Pt reports she has grab bars at home. Pt then agreed to ambulate around the room but requested to sit down after 30 feet due to increasing pain. Pt transferred to the chair SBA with cues to position her right foot out in front. Pt was positioned with call light and all needs in reach. Gait Assessment Gait Gait Assistance Required: Standby Assistance Distance (Feet) 30 Assistive Devices Assistive Device Gait Belt,Front Wheeled Walker Orthotic/Prosthetic Devices or Brace: No Gait Deviations General Gait Pattern Antalgic,Decreased Stride Length,Flexed Trunk,Step-to Gait Factors Limiting Gait Function Factors Limiting Gait Function Decreased Activity Tolerance, Decreased Strength,Limited Range of Motion,Pain,Poor Balance Comments Gait Comments see mobility comments Stair Climbing Assessment Comments Stair Climbing Comments Not assessed. Pt reports her and son will lift her up two small steps (not in succession) using a transport chair. PT-Balance Assessment Sitting Balance and Reactions Static Sitting Balance Ability Normal Dynamic Sitting Balance Ability Normal Standing Balance and Reactions Static Standing Balance Ability Good Dynamic Standing Balance Ability Good Device Used FWW M5 PT-IP Objective Assessments Start: 09/07/20 08:30 Freq: NEEDED Status: Active Protocol: Document 09/07/20 10:34 HH (Rec: 09/07/20 10:48 [email or web address]) Orientation Orientation/Cognition Level of Alertness Alert Orientation Name,Age,Birthday,Month,Date, Year,Day of Week,Place, Situation Language Function Ability No Deficits Noted Safety Awareness Understands Safety Issues Memory Description No Deficits Noted Gross Range of Motion Upper Extremity ROM Assessment Within Functional Limits Lower Extremity ROM Assessment Right Impaired Impairments 8 - 60 AROM Strength Upper Extremity Strength Assessment Within Functional Limits Lower Extremity Strength Assessment Right Impaired Hip 4/5 Knee 3/5 Coordination Assessment Gross Coordination Gross Coordination WNL Sensation Assessment Sensation Gross Sensation WNL Muscle Tone Muscle Tone WNL Yes M6 PT-IP Treatment Start: 09/07/20 08:30 Freq: NEEDED Status: Active Protocol: Document 09/08/20 14:11 AW (Rec: 09/08/20 14:20 AW [id number]) Physical Therapy Treatment Exercises Exercises Quad Sets,Heel Slides,Passive Knee Extension Hang,Seated Knee Flexion/Extension Education Education Provided Safety M7 PT-IP Assessment and Plan Start: 09/07/20 08:30 Freq: NEEDED Status: Active Protocol: Document 09/08/20 14:11 AW (Rec: 09/08/20 14:20 AW [id number]) PT Summary Assessment and Plan Summary Impairments Pain,ROM,Strength,Balance,Bed Mobility,Transfers,Gait, Activity Tolerance Progress Towards Goals Progressing Toward Goals,Slow Progress due to Pain Assessment Summary Pt continues to limit her activity citing pain as a reason in spite of pain medication 45 minutes before treatment. She needed only SBA for all mobility and states her and son will lift her in a transport chair up the two non-successive steps at home. Ideally, pt would participate in stair training prior to d/c but pt refuses. Pt will d/c home with assist and outpatient PT. Goals Bed Mobility Goal Standby Assistance Transfer Goal Standby Assistance,Front Wheeled Walker Gait Goal Standby Assistance,Front Wheel Walker Gait Distance 100 Other Goals 2 small steps with R rail Days to Meet Goals 2 Frequency of Treatment Frequency Of Treatment Twice a Day Treatment Plan Physical Therapy Treatment Plan Bed Mobility Training,Transfer Training,Gait Training, Therapeutic Exercise,Balance Retraining,Post Op Education, Discharge Planning,Hot or Cold Pack,Neuromuscular Re-ed Other Recommendations and Next Treatment discuss if realistic for w/c Focus into home, work on inc wakling tolerance Recommendations To Nursing Amount of Assist Needed 1 Person Assist Discharge Recommendations PT Discharge Recommendations Home with Assistance, Outpatient PT Transportation Needs at Discharge Private Vehicle
== END 2020-09-08 15:15 | disposition home or self-care (01) ==
LOC: OR 15:54 → AC 15:54
PROVIDERS: Admitting Provider Orthopaedic Surgery; PCP Nurse Practitioner; Referring Provider Nurse Practitioner; Visit Provider Orthopaedic Surgery
PROC: 0SRC0JZ Replacement of Right Knee Joint with Synthetic Substitute, Open Approach (ICD-10-PCS; CPT 27447; principal; 2020-09-06 13:15)
PROC: (CPT 26160; 2020-09-06 13:15)
DX: M17.11 Unilateral primary osteoarthritis, right knee (principal); M67.432 Ganglion, left wrist; E66.9 Obesity, unspecified; I10 Essential (primary) hypertension; E78.5 Hyperlipidemia, unspecified; K21.9 Gastro-esophageal reflux disease without esophagitis; Z68.38 Body mass index [BMI] 38.0-38.9, adult; Z87.891 Personal history of nicotine dependence
CPT/HCPCS: 27447; 20612; 36415; 73560; 85014; 85018; 94760; 97110; 97116; 97161; 97530; C1776; G0378; A9270; C9290; J0690; J1100; J2250; J2274; J2405; J2704; J3010

== ENCOUNTER → 2020-09-19 13:42 | Outpatient (CLI) | payer MEDICARE, OTHER, SELFPAY ==
[2020-01-04 09:17] VITALS: BMI 36.5
[2020-09-06 17:31] VITALS: BMI 38.6
--- NOTE | 2020-09-19 | DI.US.S_ITS ---
ULTRASOUND OF RIGHT BREAST: 09/19/2020 CLINICAL: Post right lumpectomy and radiation therapy. Comparison is made to exams dated: 09/19/2020 mammogram, 01/01/2020 ultrasound, 03/28/2020 ultrasound, 08/14/2019 specimen, and 08/14/2019 [facility]. Color flow ultrasound of the right breast was performed. Donohue scale images of the real-time examination were reviewed. Postsurgical scarring is seen in in the right breast at the 12 o'clock position at the site of the prior lumpectomy. The previously seen inflammatory changes are no longer seen. A few adjacent benign-appearing cysts are seen adjacent to the scar that may represent fat necrosis. IMPRESSION: BENIGN Postsurgical scarring in the right breast is benign. There is no sonographic evidence of malignancy. Return to annual mammogram screening schedule is recommended. This exam was interpreted at Station ID: [id number]. Electronically Signed By: Jose calzada/aleida:09/20/2020 14:08:25 copy to: VIET LAM copy to: [facility], ph: [phone], fax: [phone] letter sent: Normal Exam Ultrasound BI-RADS: 2 Benign
--- NOTE | 2020-09-19 | DI.MG.S_ITS ---
BILATERAL DIGITAL DIAGNOSTIC MAMMOGRAM 3D/2D: 09/19/2020 CLINICAL: Late short term follow up, due bilateral. Family history of breast cancer. Breast cancer. Comparison is made to exams dated: 03/28/2020 ultrasound, 01/01/2020 ultrasound, 06/17/2019 mammogram, 12/13/2017 mammogram, and 08/14/2019 [facility]. There are scattered fibroglandular elements in both breasts. There are benign appearing post operative findings in the right breast. No significant masses, calcifications, or other findings are seen in either breast. IMPRESSION: INCOMPLETE: NEEDS ADDITIONAL IMAGING EVALUATION Targeted ultrasound is recommended for further evaluation, which will be performed on the same day immediately following this exam. This exam was interpreted at Station ID: [id number]. NOTE: For mammograms, a report in lay terms will be sent to the patient. Approximately 15% of breast malignancies will not be visualized mammographically. In the management of a palpable breast mass, a negative mammogram must not discourage biopsy of a clinically suspicious lesion. Electronically Signed By: Jose calzada/aleida:09/19/2020 15:45:48 copy to: VIET LAM copy to: [facility] GONSALVES [facility], ph: [phone], fax: [phone] ACR BI-RADS Category 0: Incomplete [id number]
== END ==
PROVIDERS: PCP Nurse Practitioner; Referring Provider Internal Medicine Hematology & Oncology; Visit Provider Internal Medicine Hematology & Oncology
DX: R92.8 Other abnormal and inconclusive findings on diagnostic imaging of breast (principal); C50.911 Malignant neoplasm of unspecified site of right female breast; L90.5 Scar conditions and fibrosis of skin; Z80.3 Family history of malignant neoplasm of breast
CPT/HCPCS: 76642; 77066; G0279

== ENCOUNTER → 2020-10-25 15:23 | Outpatient (CLI) | payer MEDICARE, OTHER, SELFPAY ==
[2020-09-06 17:31] VITALS: BMI 38.6
[2020-10-25 18:01] LABS: Add Manual Diff / Slide Review NO; Basophils Absolute Auto 0 /uL (0-100); Basophils Percent Auto 0.6 % (0-2); Eosinophils Absolute Auto 100 /uL (0-450); Eosinophils Percent Auto 1.3 % (2-4); Hematocrit 40.5 % (36-46); Hemoglobin 13.6 g/dL (12.0-16.0); Lymphocytes Absolute Auto 2000 /uL (1100-4500); Mean Corpuscular HGB Conc 33.5 % (30-36); Mean Corpuscular Hemoglobin 33.9 PG (26-34); Mean Corpuscular Volume 101.1 fL (80-100); Monocytes Absolute Auto 700 /uL (0-900); Monocytes Percent Auto 9.3 % (3-14); Neutrophils Absolute Auto 4300 /uL (1500-7000); Neutrophils Percent Auto 60.8 % (50-75); Platelet Count 272 X10^3/uL (150-400); Red Blood Cell Count 4.01 X10^6/uL (4.0-5.2); Red Cell Distribution Width 14.1 % (11.6-14.8)
[2020-10-25 19:56] LABS: Free T3, Triiodothyronine Free 4.09 pg/mL (2.77-5.27); Free T4, Direct Thyroxine 1.29 ng/dL (0.78-2.19)
[2020-10-25 20:10] LABS: Thyroid Stimulating Hormone 18.1 uIU/mL (0.47-4.68)
[2020-10-27 05:16] LABS: Thyroid Peroxidase Antibodies <9 IU/mL (0-34)
== END ==
PROVIDERS: PCP Nurse Practitioner; Referring Provider Nurse Practitioner; Visit Provider Nurse Practitioner
DX: F32.9 Major depressive disorder, single episode, unspecified (principal); R53.83 Other fatigue; F41.9 Anxiety disorder, unspecified; R63.5 Abnormal weight gain; D64.9 Anemia, unspecified; R79.89 Other specified abnormal findings of blood chemistry
CPT/HCPCS: 36415; 84439; 84443; 84481; 85025; 86376

== ENCOUNTER → 2020-11-07 09:10 | Outpatient (CLI) | payer MEDICARE, OTHER, SELFPAY ==
[2020-09-06 17:31] VITALS: BMI 38.6
--- NOTE | 2020-11-07 09:11 | DI.NM.S_ITS ---
PROCEDURE: [place] BONE SCAN WHOLE BODY RADIOPHARMACEUTICAL: 19.3 mCi Tc-99m MDP IV. INDICATIONS: breast cancer, right upper back rib pain TECHNIQUE: Delayed whole-body scintigrams were obtained approximately 3-4 hours after intravenous injection of radiotracer. Anterior and posterior views were acquired from vertex to feet. Additional left and right oblique views of the chest and upper abdomen were obtained. COMPARISON: [facility], CT, CT ZIMMERMAN, 10/01/2019, 12:43. [facility] [place], CR, XR KNEE 4+ VIEWS RIGHT, 09/21/2020, 13:42. [facility], CR, XR KNEE RT 1TO2V, 09/06/2020, 16:33. FINDINGS: Prior plain film imaging shows postoperative change of right knee arthroplasty being performed 09/06/20. Currently there is elevated isotope deposition along the borders of the arthroplasty, and a more normal appearance of the longstanding left total knee arthroplasty. Note is made of degenerative changes at each shoulder, right greater than left, and also a focus of increased activity at the right lateral border of the sternum. Additionally, there is hydronephrosis at the right kidney, Degenerative changes at the midfoot level, right greater than left. IMPRESSION: 1. There is an unexpected finding of right-sided hydronephrosis, and a prior CT for radiation therapy planning 10/01/19 had not shown collecting system dilatation on the right at that time. Follow-up assessment initially with ultrasound and possibly thereafter requiring CT scanning without and with contrast is recommended. 2. Prominent elevated isotope deposition along the borders of the right total knee arthroplasty, performed 09/06/20. Please correlate for signs and symptoms of infection related to this operative procedure. This could represent normal healing response. 3. Single focus of abnormal isotope uptake involving the right lateral border of the sternum, mid sternum level. The history includes prior breast carcinoma and this could represent a focus of metastatic disease. Dictated by: Cornelius Marquez M.D. on 11/07/2020 at 14:55 Approved by: Cornelius Marquez M.D. on 11/07/2020 at 15:03
== END ==
PROVIDERS: PCP Nurse Practitioner; Referring Provider Internal Medicine Hematology & Oncology; Visit Provider Internal Medicine Hematology & Oncology
DX: C50.911 Malignant neoplasm of unspecified site of right female breast (principal); R07.81 Pleurodynia; M54.6 Pain in thoracic spine; N13.30 Unspecified hydronephrosis; Z96.611 Presence of right artificial shoulder joint
CPT/HCPCS: 78306; A9503

== ENCOUNTER → 2020-11-08 13:03 | Outpatient (CLI) | payer MEDICARE, OTHER, SELFPAY ==
[2020-09-06 17:31] VITALS: BMI 38.6
--- NOTE | 2020-11-08 13:04 | DI.MRI.S_ITS ---
PROCEDURE: MR BRAIN (PITUITARY) WWO CON INDICATIONS: elevated TSH, elevated pituitary TECHNIQUE: Noncontrast sagittal and axial FLAIR, axial gradient echo, axial diffusion and ADC through the brain. Thin-slice sagittal and coronal T1 spin echo, coronal T2 fast spin echo through the pituitary. After the administration contrast, optional dynamic coronal T1 spin echo, thin-slice coronal and sagittal T1 spin echo images through the pituitary fossa; axial T1 spin echo with fat saturation through the brain. COMPARISON: None. FINDINGS: Image quality: Excellent. Pituitary Gland: The pituitary gland demonstrates normal signal and bulk, with the pituitary tissue largely flattened along the floor of the sella turcica.. On the postcontrast imaging, no masses or abnormally enhancing areas are seen. The pituitary stalk and infundibulum have an unremarkable appearance. A normal appearing pituitary bright spot is seen posteriorly on the precontrast sagittal T1-weighted images. The optic chiasm and the ventral forebrain have an unremarkable appearance. CSF Spaces: Ventricles are normal in size and shape. Basal cisterns are patent. No extra-axial fluid collections. Brain: No intracranial bleeds or mass effects. No abnormal intracranial enhancement. Donohue-white matter interface is intact. Age-appropriate brain parenchymal volume loss and chronic small vessel ischemic change can be seen. A Diffusion weighted images demonstrate no acute ischemic insults. Brainstem is normal. Normal intravascular flow voids are present. Skull and face: Calvarial marrow is normal in signal. Orbits appear normal. Sinuses: Sinuses and mastoids are clear. IMPRESSION: Pituitary study within normal limits, without pituitary nodules identified. Dictated by: Benjamin Marquez M.D. on 11/08/2020 at 12:58 Approved by: Benjamin Marquez M.D. on 11/08/2020 at 13:00
--- NOTE | 2020-11-08 13:04 | DI.US.S_ITS ---
ULTRASOUND OF LEFT BREAST AND AXILLA: 11/08/2020 CLINICAL: Focal left axilla pain. Comparison is made to exams dated: 09/19/2020 mammogram, 06/17/2019 mammogram, 12/13/2017 mammogram, 06/29/2016 mammogram, and 01/30/2011 mammogram - . Color flow and real-time ultrasound of the left breast axilla were performed. Donohue scale images of the real-time examination were reviewed. No significant abnormalities were seen sonographically in the left axilla. IMPRESSION: NEGATIVE There is no sonographic evidence of malignancy in the region of pain in the left axilla. Exam findings were conveyed to the patient. Patient is advised to monitor for significant change. Clinical follow-up as needed. A 1 year screening mammogram is recommended. 09/20/2021 screening mammogram. This exam was interpreted at Station ID: [id number]. Electronically Signed By: Marcellus Lozano M.D. slc/:11/08/2020 14:32:11 copy to: VIET LAM copy to: [facility] GONSALVES [facility], ph: [phone], fax: [phone] letter sent: Normal Exam Ultrasound BI-RADS: 1 Negative
--- NOTE | 2020-11-08 13:04 | DI.US.S_ITS ---
PROCEDURE: US THYROID INDICATIONS: WEIGHT GAIN AND ELEVATED THYROID STIMULATING HORMONE TECHNIQUE: Real-time scanning was performed of the thyroid gland, with image documentation. COMPARISON: None. FINDINGS: Right: Thyroid lobe measures 4.6 x 1.6 x 1.4 cm, and is homogeneous in echotexture. Left: Thyroid lobe measures 4.5 x 1.4 x 1.2 cm, and is homogenous in echotexture. Isthmus: 2.1 mm thick. Vascular calcifications indicate atherosclerosis. IMPRESSION: Normal thyroid. Dictated by: Mark Olivarez [facility] Interpreted: Alexandre Li MD on 11/08/2020 at 16:14 Approved by: Alexandre Li M.D. on 11/08/2020 at 16:40
== END ==
PROVIDERS: PCP Nurse Practitioner; Referring Provider Nurse Practitioner; Visit Provider Nurse Practitioner
DX: Z85.3 Personal history of malignant neoplasm of breast (principal); R79.89 Other specified abnormal findings of blood chemistry; R63.5 Abnormal weight gain; N64.4 Mastodynia; M79.622 Pain in left upper arm
CPT/HCPCS: 70553; 76536; 76882

== ENCOUNTER → 2020-11-15 13:36 | Outpatient (CLI) | payer MEDICARE, OTHER, SELFPAY ==
[2020-09-06 17:31] VITALS: BMI 38.6
[2020-11-14 11:05] VITALS: BMI 38.6
--- NOTE | 2020-11-15 13:37 | DI.CT.S_ITS ---
PROCEDURE: CT CHEST WO CON INDICATIONS: breast cancer, right-sided sternal bone scan uptake signal seen 11/07/20.. TECHNIQUE: Noncontrast 5 mm thick sections acquired from the pulmonary apices to the posterior costophrenic angles. 1 mm lung window, 5 mm thick coronal and sagittal and 7 mm axial MIP reformats were then acquired. For radiation dose reduction, the following was used: automated exposure control, adjustment of mA and/or kV according to patient size. COMPARISON: [place], [place], [place] BONE SCAN WHOLE BODY, 11/07/2020, 12:51. FINDINGS: Image quality: Excellent. Lungs and pleura: No acute air space opacities. No pleural effusions or pneumothorax. Central and peripheral airways are patent and normal in caliber. Mediastinum: Heart size is normal. No pericardial effusion. No mediastinal adenopathy by size criteria. Thoracic aorta and central pulmonary arteries are normal in size. Esophagus is normal in caliber. No hiatal hernia. Bones and chest wall: No suspicious bony lesions. No vertebral body compression fractures. No axillary or supraclavicular adenopathy by size criteria. Thyroid gland is not well seen by this noncontrast technique.. Note is made of right lateral breast parenchymal distortion consistent with lumpectomy. Several surgical clips are present on the right, and note is made of cutaneous thickening over the right breast, which in this clinical circumstance is most likely due to postradiation change. Along the area of focal increased isotope deposition right border of the sternum inferiorly no osteolytic or blastic lesion is identified. Abdomen: Visualized upper abdominal solid organs and bowel loops appear normal in the absence of contrast. IMPRESSION: Postoperative and post radiation changes at the right breast, and no abnormality is seen at the right lower sternum laterally in the area of nuclear medicine bone scan concern from 11/07/20. Follow-up attention to that area on bone scanning is warranted in 3-6 months. Dictated by: Cornelius Marquez M.D. on 11/15/2020 at 17:20 Approved by: Cornelius Marquez M.D. on 11/15/2020 at 17:24
--- NOTE | 2020-11-15 14:29 | DI.CT.S_ITS ---
PROCEDURE: CT KIDNEY URETER BLADDER (KUB) INDICATIONS: right hydronephrosis TECHNIQUE: Noncontrast 5 mm thick sections acquired from the diaphragms to the symphysis. 5 mm thick coronal and sagittal reformats were then performed. For radiation dose reduction, the following was used: automated exposure control, adjustment of mA and/or kV according to patient size. COMPARISON: [facility], CT, CT ZIMMERMAN, 10/01/2019, 12:43. [facility], [place], [place] BONE SCAN WHOLE BODY, 11/07/2020, 12:51. [facility], CT, CT CHEST WO CON, 11/15/2020, 13:46. [facility], CT, KIDNEY/ URETER/BLADDER, 04/08/2017, 16:51. FINDINGS: Image quality: Excellent. Evaluation of the solid or parenchymal organs is limited without IV contrast. Lung bases: Lung bases are clear. Heart size is normal. Small hiatal hernia. Small paraesophageal lymph nodes are unchanged since 2017. Urinary system: Both kidneys are normal in size. No kidney stones. Mild right kidney hydronephrosis. No right hydroureter. Of note there was marked hydronephrosis of the right kidney in 2017 without hydroureter. Both ureters appear non-dilated throughout their expected courses. Bladder wall thickness is normal; no calcified bladder stones. Other solid organs: Liver is normal in size. A few hypodense foci which are unchanged and have the appearance of benign cysts. Gallbladder is within normal limits. Pancreas is normal in contours. Spleen is normal in size. No adrenal nodules. Peritoneum and bowel: Unenhanced bowel loops demonstrate normal wall thickness and caliber. Normal appendix. No free fluid or air. Nodes and vessels: No retroperitoneal or mesenteric adenopathy by size criteria. Aorta and inferior vena cava are normal in caliber. Circumferential calcified atherosclerotic plaque. Abdominal wall: Small fat containing periumbilical hernia. Pelvis: No free pelvic fluid. No inguinal hernias or adenopathy. Uterus is absent. Bones: No suspicious bony lesions. No vertebral body compression fractures. IMPRESSION: 1. Mild right hydronephrosis. No right hydroureter. This could be seen in UPJ obstruction. 2. No kidney stones. Dictated by: Marcellus Lozano M.D. on 11/15/2020 at 15:04 Approved by: Marcellus Lozano M.D. on 11/15/2020 at 15:14
== END ==
PROVIDERS: PCP Nurse Practitioner; Referring Provider Internal Medicine Hematology & Oncology; Visit Provider Internal Medicine Hematology & Oncology
DX: C50.911 Malignant neoplasm of unspecified site of right female breast (principal); N13.30 Unspecified hydronephrosis; K44.9 Diaphragmatic hernia without obstruction or gangrene
CPT/HCPCS: 71250; 74176

== ENCOUNTER → 2020-11-23 13:22 | Outpatient (CLI) | payer MEDICARE, OTHER, SELFPAY ==
[2020-11-14 11:05] VITALS: BMI 38.6
[2020-11-23 18:16] LABS: Free T4, Direct Thyroxine 1.16 ng/dL (0.78-2.19)
[2020-11-24 07:56] LABS: Thyroid Peroxidase Antibodies <9 IU/mL (0-34)
== END ==
PROVIDERS: PCP Nurse Practitioner; Referring Provider Nurse Practitioner; Visit Provider Nurse Practitioner
DX: R79.89 Other specified abnormal findings of blood chemistry (principal)
CPT/HCPCS: 36415; 84439; 84443; 86376

== ENCOUNTER → 2020-12-16 14:05 | Outpatient (CLI) | payer MEDICARE, OTHER, SELFPAY ==
[2020-11-14 11:05] VITALS: BMI 38.6
--- NOTE | 2020-12-16 14:06 | DI.NM.S_ITS ---
PROCEDURE: [place] RENAL FUNCTION W LASIX RADIOPHARMACEUTICAL: 8.9 mCi Tc-99m MAG3 IV and 40 mg furosemide IV. INDICATIONS: Hydronephrosis of right kidney TECHNIQUE: The patient was hydrated orally before the examination was begun. After intravenous administration of Tc-99m MAG3, posterior abdominal radionuclide angiogram and sequential (1 minute each frame) renal images were obtained. A time-activity curve for each kidney was generated and analyzed. To evaluate for obstruction, the patient was given 40 mg furosemide via slow intravenous injection after the start of the examination. Sequential images were obtained for up to an additional 20 minutes. COMPARISON: [place], [place] RENAL FUNCTION W LASIX, 04/13/2019, 13:31. [place], [place] RENAL FUNCTION W LASIX, 01/17/2018, 13:38. [facility], CT, KIDNEY/ URETER/BLADDER, 04/08/2017, 16:51. [facility], CT, CT ABD PELVIS W&WO CON IVP, 04/26/2017, 14:19. [facility], CT, CT KIDNEY URETER BLADDER (KUB), 11/15/2020, 13:46. FINDINGS: Perfusion: There is normal vascular flow to both kidneys. Morphology: Both kidneys are normal in size and shape. The right renal collecting collecting system is dilated. No dilated left renal collecting system. The ureters and bladder fill with tracer, and appear normal. Function: The left kidney demonstrates normal cortical tracer uptake, with [id number] activity at 2 minutes. There is minimal delayed tracer uptake and excretion by the right kidney with time to peak activity approximately 5 minutes. The right kidney contributes 45% of total renal function. The left kidney contributes 55% of total renal function. Lasix stimulation: After diuretic administration, there is prompt clearance of tracer activity from the renal collecting systems in both kidneys. The half-time of emptying of tracer activity from the right pelvicaliceal system is 3.3 minutes. The half-time of emptying from the left pelvicaliceal system is 7.4 minutes. Normal emptying half-times are less than 10 minutes; borderline ranges are from 10 to 20 minutes. IMPRESSION: 1. Dilated right renal collecting system. The right kidney does not appear to be obstructed (normal T1/2). 2. Normal left renal function. 3. The right kidney contributes 45% of total renal function. The left kidney contributes 55% of total renal function. Split renal function has been stable since 2018 (44% right kidney and 56% left kidney). Dictated by: Chitra Graff M.D. on 12/16/2020 at 16:15 Approved by: Chitra Graff M.D. on 12/16/2020 at 16:29
== END ==
PROVIDERS: PCP Nurse Practitioner; Referring Provider Specialist; Visit Provider Specialist
DX: N13.30 Unspecified hydronephrosis (principal)
CPT/HCPCS: 78708; A9562

== ENCOUNTER → 2021-02-01 10:43 | Outpatient (CLI) | payer MEDICARE, OTHER, SELFPAY ==
[2020-11-14 11:05] VITALS: BMI 38.6
--- NOTE | 2021-02-01 10:45 | DI.NM.S_ITS ---
PROCEDURE: [place] BONE SCAN WHOLE BODY RADIOPHARMACEUTICAL: 19.2 mCi Tc-99m MDP IV. INDICATIONS: breast cancer, abnormal bone scan TECHNIQUE: Delayed whole-body scintigrams were obtained approximately 3-4 hours after intravenous injection of radiotracer. Anterior and posterior views were acquired from vertex to feet. Additional left and right oblique views of the chest/upper abdomen were obtained. COMPARISON: [place], [place], [place] BONE SCAN WHOLE BODY, 11/07/2020, 12:51. FINDINGS: The right breast tissue show subtle isotope uptake, and this is confirmed to be within the breast tissue itself on the oblique views where the isotope uptake is elevated separate from the rib margins. As was previously the case there is a small region of elevated isotope uptake at the right lateral border of the sternum, at approximately the junction of the middle and lower thirds from the oblique positioning. The more prominent degree of isotope uptake is seen associated with the right total knee arthroplasty and also at the right ankle area. Right knee arthroplasty infection or loosening would be suspected given the uptake greater on the right than the left which also has received a left total knee arthroplasty Mild degenerative change also is seen again at the low cervical spine best noted on the posterior projections, and at the shoulders bilaterally. Asymmetric retention of isotope is seen within the right renal collecting system as was previously case. IMPRESSION: 1. Retention of isotope within the right renal collecting system suggestive of some form of urinary tract outflow restriction on the right, possibly and likely at the ureteropelvic junction. 2. Abnormal mild and relatively subtle isotope deposition in the right breast tissue, seen elevated away from the rib margins on oblique imaging. This likely reflects post radiation change. 3. Elevated focal isotope uptake again seen at the right lateral margin of the sternum at approximately the junction of the middle and lower thirds. This was previously present, is of uncertain etiology and warrants follow-up, but appears somewhat less prominent than on the prior study and therefore could represent post radiation change or successful response to therapy in the setting of a true marrow space metastatic focus. 4. Uncertain etiology of relatively prominent isotope uptake along the borders of the right total knee arthroplasty open (abnormal close) when compared to the minimal uptake along the borders of the arthroplasty on the left open (normal). Please correlate for infection or loosening. 5. Asymmetric uptake of isotope at the right ankle and hindfoot level, likely degenerative in origin. . Dictated by: Cornelius Marquez M.D. on 02/01/2021 at 15:22 Approved by: Cornelius Marquez M.D. on 02/01/2021 at 15:30
== END ==
PROVIDERS: PCP Nurse Practitioner; Referring Provider Internal Medicine Hematology & Oncology; Visit Provider Internal Medicine Hematology & Oncology
DX: C50.911 Malignant neoplasm of unspecified site of right female breast (principal); R94.8 Abnormal results of function studies of other organs and systems
CPT/HCPCS: 78306; A9503

== ENCOUNTER → 2021-02-24 09:41 | Outpatient (CLI) | payer MEDICARE, OTHER, SELFPAY ==
[2020-11-14 11:05] VITALS: BMI 38.6
[2021-02-24 10:48] LABS: Alanine Aminotransferase 21 IU/L (<35); Albumin 4.4 g/dL (3.5-5.0); Albumin Globulin Ratio 1.3 (1.0-2.8); Alkaline Phosphatase 57 U/L (38-126); Aspartate Aminotransferase 30 IU/L (14-36); BUN Creatinine Ratio 19.8 (6-22); Bilirubin Total 0.6 mg/dL (0.2-1.3); Blood Urea Nitrogen 16 mg/dL (7-17); Calcium 9.4 mg/dL (8.4-10.2); Carbon Dioxide 30 mmol/L (22-32); Chloride 101 mmol/L (98-107); Cholesterol 189 mg/dL (140-199); Estimated Glomerular Filt Rate > 60.0 mL/min (>60); Globulin 3.3 g/dL (1.7-4.1); HDL Cholesterol 45 mg/dL (40-60); HEMOLYSIS < 15 (0-50); LDL Cholesterol Calculated 124 mg/dL (<100); Sodium 138 mmol/L (137-145); Total Protein 7.7 g/dL (6.3-8.2); Triglycerides 98 mg/dL (35-150)
[2021-02-24 11:03] LABS: Glucose 102 mg/dL (80-110)
[2021-02-24 11:31] LABS: Creatinine Urine Random 81.4 mg/dL
[2021-02-24 11:35] LABS: Microalbumi Creatinin Ratio Ur 8.5 ug/mg CR (<30); Microalbumin Urine Random 0.7 mg/dL (0-1.6)
[2021-02-24 12:41] LABS: Thyroid Stimulating Hormone 4.98 uIU/mL (0.47-4.68)
== END ==
PROVIDERS: PCP Nurse Practitioner; Referring Provider Nurse Practitioner; Visit Provider Nurse Practitioner
DX: R79.89 Other specified abnormal findings of blood chemistry (principal); I10 Essential (primary) hypertension; E78.00 Pure hypercholesterolemia, unspecified; Z79.899 Other long term (current) drug therapy; E03.9 Hypothyroidism, unspecified
CPT/HCPCS: 36415; 80053; 80061; 82043; 82570; 84439; 84443

== ENCOUNTER → 2021-03-15 13:47 | Outpatient (CLI) | payer MEDICARE, OTHER, SELFPAY ==
[2020-11-14 11:05] VITALS: BMI 38.6
[2021-03-15 16:05] LABS: C-Reactive Protein Quant 1.6 mg/dL (<1.0); Uric Acid 4.7 mg/dL (2.5-6.2)
[2021-03-15 16:23] LABS: Rheumatoid Factor < 8.6 IU/mL (<12.0)
[2021-03-15 17:04] LABS: Erythrocyte Sedimentation Rate 33 MM/HR (0-20)
[2021-03-17 15:32] LABS: ANA Screen, IFA Negative (.)
== END ==
PROVIDERS: PCP Nurse Practitioner; Referring Provider Orthopaedic Surgery; Visit Provider Orthopaedic Surgery
DX: L03.114 Cellulitis of left upper limb (principal); M25.532 Pain in left wrist
CPT/HCPCS: 36415; 84550; 85651; 86038; 86140; 86430

== ENCOUNTER → 2021-04-07 09:29 | Outpatient (CLI) | payer MEDICARE, OTHER, SELFPAY ==
[2020-11-14 11:05] VITALS: BMI 38.6
[2021-04-07 11:36] LABS: COVID19 -Nasal RAPID Negative (Negative)
== END ==
PROVIDERS: PCP Nurse Practitioner; Visit Provider Surgery
DX: Z20.822 Contact with and (suspected) exposure to COVID-19 (principal); Z01.812 Encounter for preprocedural laboratory examination
CPT/HCPCS: 87635; C9803

== ENCOUNTER 2021-04-10 08:53 | Day surgery (SDC) | payer MEDICARE, OTHER, SELFPAY ==
[2020-11-14 11:05] VITALS: BMI 38.6
[2021-04-10] VITALS (7 sets, daily range): BP systolic 121–136; BP diastolic 61–82; PULSE 70–88; RESP 10–19; TEMP 36.4–36.9; O2SAT 92–97; BMI 38.6
--- NOTE | 2021-04-10 | PATH_ITS ---
[facility] Accession Number: [id number] . 01 Material submitted: . sigmoid colon - SIGMOID COLON POLYP . 02 Diagnosis: Sigmoid Colon Polyp: Tubular adenoma. MRV 04/12/2021 1035 Local . 02 Electronically signed: . Missy Valverde MD, Pathologist NPI- [id number] . 01 Gross description: . SIGMOID COLON POLYP: Received in formalin is 1 fragment(s) of estevez, soft tissue measuring 0.5 x 0.4 x 0.3 cm submitted entirely in 1 cassette(s) /KAIDEN 04/11/2021 0422 Local . 02 Pathologist provided ICD-10: Z86.010, R19.4, K63.5 . 02 CPT . 303420 Performed at: 01 [facility] Cytology [address] [facility] [place] [facility] [place], [place], [place] [id number] MD Chirag Matta MD Phone: [phone] Performed at: 02 [facility] [address] [place], [place] [id number] MD Brooke Tamayo MD Phone: [phone]
[2021-04-10] MEDS: LACTATED RINGERS 1,000 ML 200 ML IV (09:40)
--- NOTE | 2021-04-10 10:02 | PM.HP.1 ---
History of Present Illness History of Present Illness Date Patient Seen: 04/10/21 Time Patient Seen: 10:02 Chief complaint: DX COLONOSCOPY Narrative: The patient presents for colorectal sreening. Previous examination 3 years ago demonstrated benign polyps. Colonoscopy is in requested by her primary care physician secondary to a change in bowel habits recently she has developed a significantly smaller caliber of stool.. No personal or family history of colon cancer. On further history denies any recent gastrointestinal symptoms. No nausea, vomiting, abdominal pain, loss of appetite, unexplained weight loss, constipation, melena, hematochezia, or bright red blood per rectum. Patient History Medical History Anxiety Bilateral cataracts Bilateral mastodynia Bradycardia Breast lump in female Bronchitis Bruises easily Chronic headaches Chronic pain Compression fracture Compression fracture of body of thoracic vertebra Difficulty swallowing Edema Elevated TSH Fibromyalgia Former smoker Frequent PVCs Gastritis GERD (gastroesophageal reflux disease) Hypercholesterolemia Hyperlipidemia Hypertension Hypothyroidism (acquired) Insomnia Irregular heartbeat Menopause (1974) Migraines Myocardial infarction (2015) Nocturia more than twice per night Numbness Osteoarthritis PVCs (premature ventricular contractions) SOB (shortness of breath) Spinal stenosis Unilateral primary osteoarthritis, right knee Urinary incontinence UTI (urinary tract infection) Surgical History H/O arthroscopic knee surgery History of colonoscopy History of esophagogastroduodenoscopy (EGD) History of total knee arthroplasty (01/28/18) Hx of partial mastectomy (08/14/19) Hx of thumb surgery S/P foot surgery, right Status post arthroscopy Status post hysterectomy Status post tubal ligation (1974) Family & Social History Family History Mother Hypertension Stroke Cancer Grandmother Hypertension Heart disease Father Cancer Brother Cancer Social History: household members spouse lives independently Yes caregiver/support person No Tobacco & Substance use: Tobacco type cigarettes Smoking Status Former smoker alcohol intake current alcohol intake frequency 0-2 drinks per day Substance Use Type marijuana Meds Home Medications and Allergies Home Medications Medication Instructions Recorded Confirmed Type albuterol sulfate 90 mcg/actuation 1 - 2 puff INHALATION EVERY 4-6 HR 08/13/18 04/10/21 Rx aerosol inhaler (Ventolin HFA) PRN #8.5 gram multivitamin (Daily Multi-Vitamin) 1 tab PO DAILY 03/24/19 03/02/21 History calcium carbonate 600 mg calcium 300 mg PO BID 07/14/19 04/10/21 History (1,500 mg) tablet (Calcium) cholecalciferol (vitamin D3) 25 1,200 unit PO DAILY 07/14/19 04/10/21 History mcg (1,000 unit) capsule melatonin 5 mg tablet 5 mg PO BEDTIME PRN 05/11/20 03/02/21 History diltiazem HCl 120 mg 240 mg PO DAILY cap 07/21/20 04/10/21 History capsule,extended release 12 hr docusate sodium 100 mg capsule 100 mg PO BID PRN 09/02/20 04/10/21 History acetaminophen 325 mg tablet 650 mg PO TID #60 tab 09/07/20 03/02/21 Rx salicylic acid 2 % topical cream 1 applic TOPICAL DAILY #227 g 11/11/20 03/02/21 Rx (CeraVe Psoriasis) aspirin 81 mg tablet,delayed 81 mg PO DAILY #60 tab 02/14/21 03/02/21 Rx release naproxen sodium 220 mg capsule 220 mg PO DAILY PRN #60 cap 02/14/21 04/10/21 Rx (Aleve) sodium,potassium,mag sulfates 17.5 See Rx Instructions PO .COMPLEX 03/29/21 Rx gram-3.13 gram-1.6 gram oral soln #354 ml (Suprep Bowel Prep Kit) Allergies Allergy/AdvReac Type Severity Reaction Status Date / Time adhesive Allergy Severe Blister Verified 04/10/21 09:08 NSAIDS (Non-Steroidal AdvReac Severe UPSET GI Verified 04/10/21 09:08 Anti-Inflamma [NSAIDS (NON-STEROIDAL ANTI-INFLAMMA] tramadol [TRAMADOL] AdvReac Severe hyperactivity, Verified 04/10/21 09:08 GI upset zoledronic acid AdvReac Severe every Verified 04/10/21 09:08 [From Reclast] bone in by body hurt alendronate sodium AdvReac Mild Gastrointestinal Verified 04/10/21 09:08 [From Fosamax] Upset Exam Vital Signs (past 8 hours): - 04/10/21 09:36 Temperature 98 F Pulse Rate 88 Respiratory Rate 16 Blood Pressure 136/82 Pulse Oximetry 96 Oxygen Delivery Method Room Air Narrative Exam Narrative: Constitutional-She is oriented to person, place and time. No apparent distress Cardiovascular- regular rate, no peripheral edema Pulmonary-unlabored respiratory effort, no audible wheezing Abdominal-soft, non-tender, non-distended Musculoskeletal-no cyanosis or clubbing Neurological-nonfocal, normal strength throughout, normal gait. Skin-warm and dry Assessment & Plan Assessment & Plan narrative: The patient requires colorectal screening and colonoscopy is recommended secondary to change in bowel habit.. Technical details were discussed. Risks, benefits, alternatives explained. Risks including but not limited to myocardial infarction, aspiration, bleeding, pain, missed lesion, incomplete examination, need for further radiographic studies, colonic perforation, and need for major abdominal surgery were discussed. All questions were answered to their satisfaction, and they are in agreement with this plan.
[2021-04-10] MEDS: fentaNYL 250 MCG/5 ML INJ IV (10:30)
[2021-04-10] MEDS: MIDAZOLAM 5 MG/5 ML VIAL IV (10:32)
--- NOTE | 2021-04-10 10:44 | PM.OP.ENDO ---
Operative Date/Time/Diagnoses Date of procedure: 04/10/21 Time of procedure: 10:44 Pre-op diagnosis: Change of bowel function Post-op diagnosis: same Procedure & Clinicians Study performed: Sigmoidoscopy. Incomplete colonoscopy Same procedure as scheduled: Yes Indications: Change in bowel function Surgeon: Ortega Malave Procedure Notes Procedure in detail: Medications: Conscious sedation using 9mg IV midazolam and 250mcg IV of fentanyl The history and physical was performed/updated and the patient is ASA class is 3. The procedure was discussed in detail with the patient. Potential risks complications including infection, bleeding, missed diagnosis, perforation, need for surgery, and were explained. Their questions were answered and informed consent was obtained. Patient was brought to the procedure room and placed standard monitoring equipment. The patient's vital signs were monitored continuously throughout the entire procedure. Prior to starting time-out was performed. The patient was placed in the left lateral recumbent position. Procedural sedation was administered. Examination began with a thorough inspection of the perianal area there was no evidence of fissures, fistulae, external hemorrhoids or cutaneous malignancy. The colonoscopy scope was then placed into the anal canal and was forward. The hepatic flexure was reached but this was the extent of the scope. Despite multiple attempts at repositioning, external pressure scope stiffening, the colon was especially tortuous and we were unable to intubate the cecum. The scope was then slowly withdrawn examining colon thoroughly in all directions, irrigating it of any residual stool. FINDINGS 1. No masses or polyps 2. Sigmoid diverticulosis 3. Tortuous colon The patient tolerated the procedure well. They will be discharged once criteria are met. The prep was of good/excellent quality. The withdrawl time was 6 minutes. The sedation time was 41 minutes. Specimen(s): none sent Complications: none Impression: Incomplete colonoscopy Post-procedure Plan for aftercare: Barium enema Disposition: same day surgery
--- NOTE | 2021-04-10 10:47 | SUR.PHASEI ---
Pt to recovery with [facility] after colonoscopy. Awake, denies pain, states she is just sleepy
--- NOTE | 2021-04-10 11:13 | SUR.PHASEI ---
Pt transferred to OPD bed 6. Coffee given after tolerating juice. SBAR report to [facility].
--- NOTE | 2021-04-10 11:31 | SUR.PHASEII ---
Patient DC to home with spouse after up to ambulate to [facility].
== END 2021-04-10 11:31 | disposition home or self-care (01) ==
PROVIDERS: PCP Nurse Practitioner; Referring Provider Surgery; Visit Provider Surgery
PROC: 0DJD8ZZ Inspection of Lower Intestinal Tract, Via Natural or Artificial Opening Endoscopic (ICD-10-PCS; CPT 45378; principal; 2021-04-10 10:00)
DX: R19.4 Change in bowel habit (principal); Z86.010 Personal history of colon polyps; E03.9 Hypothyroidism, unspecified; I10 Essential (primary) hypertension; E78.5 Hyperlipidemia, unspecified; K57.30 Diverticulosis of large intestine without perforation or abscess without bleeding; D12.5 Benign neoplasm of sigmoid colon
CPT/HCPCS: 45331; 99152; 99153; J2250; J3010

== ENCOUNTER → 2021-05-31 11:27 | Outpatient (CLI) | payer MEDICARE, OTHER, SELFPAY ==
[2020-11-14 11:05] VITALS: BMI 38.6
[2021-06-01 12:11] LABS: SARS CoV19 IgG Negative (Negative)
== END ==
PROVIDERS: PCP Nurse Practitioner; Referring Provider Nurse Practitioner; Visit Provider Nurse Practitioner
DX: Z20.822 Contact with and (suspected) exposure to COVID-19 (principal)
CPT/HCPCS: 36415; 86769

== ENCOUNTER → 2021-08-04 10:40 | Outpatient (CLI) | payer MEDICARE, OTHER, SELFPAY ==
[2020-11-14 11:05] VITALS: BMI 38.6
[2021-08-04 11:00] LABS: Add Manual Diff / Slide Review NO; Basophils Absolute Auto 0 /uL (0-100); Basophils Percent Auto 0.7 % (0-2); Eosinophils Absolute Auto 100 /uL (0-450); Eosinophils Percent Auto 1.8 % (2-4); Hematocrit 38.5 % (36-46); Hemoglobin 13.1 g/dL (12.0-16.0); Lymphocytes Absolute Auto 1900 /uL (1100-4500); Lymphocytes Percent Auto 27.9 % (25-40); Mean Corpuscular Hemoglobin 33.9 PG (26-34); Mean Corpuscular Volume 99.6 fL (80-100); Monocytes Absolute Auto 500 /uL (0-900); Monocytes Percent Auto 8.2 % (3-14); Neutrophils Absolute Auto 4100 /uL (1500-7000); Neutrophils Percent Auto 61.4 % (50-75); Platelet Count 277 X10^3/uL (150-400); Red Blood Cell Count 3.86 X10^6/uL (4.0-5.2); Red Cell Distribution Width 13.6 % (11.6-14.8); White Blood Cell Count 6.7 X10^3/uL (4.5-11.0)
[2021-08-04 11:37] LABS: BUN Creatinine Ratio 21.1 (6-22); Blood Urea Nitrogen 15 mg/dL (7-17); Calcium 9.6 mg/dL (8.4-10.2); Carbon Dioxide 31 mmol/L (22-32); Chloride 103 mmol/L (98-107); Cholesterol 192 mg/dL (140-199); Estimated Glomerular Filt Rate > 60.0 mL/min (>60); Glucose 112 mg/dL (80-110); HDL Cholesterol 51 mg/dL (40-60); HEMOLYSIS < 15 (0-50); LDL Cholesterol Calculated 121 mg/dL (<100); Potassium 4.6 mmol/L (3.4-5.1); Sodium 139 mmol/L (137-145); Triglycerides 101 mg/dL (35-150)
== END ==
PROVIDERS: PCP Nurse Practitioner; Referring Provider Internal Medicine Cardiovascular Disease; Visit Provider Internal Medicine Cardiovascular Disease
DX: E78.5 Hyperlipidemia, unspecified (principal); R00.2 Palpitations
CPT/HCPCS: 36415; 80048; 80061; 85025

== ENCOUNTER → 2021-09-02 08:36 | Outpatient (CLI) | payer MEDICARE, OTHER, SELFPAY ==
[2020-11-14 11:05] VITALS: BMI 38.6
[2021-09-02 10:12] LABS: Alanine Aminotransferase 23 IU/L (<35); Albumin 4.3 g/dL (3.5-5.0); Albumin Globulin Ratio 1.4 (1.0-2.8); Alkaline Phosphatase 57 U/L (38-126); Aspartate Aminotransferase 33 IU/L (14-36); BUN Creatinine Ratio 19.5 (6-22); Bilirubin Total 0.5 mg/dL (0.2-1.3); Blood Urea Nitrogen 15 mg/dL (7-17); Calcium 9.4 mg/dL (8.4-10.2); Carbon Dioxide 33 mmol/L (22-32); Chloride 102 mmol/L (98-107); Estimated Glomerular Filt Rate > 60.0 mL/min (>60); Globulin 3.1 g/dL (1.7-4.1); Glucose 100 mg/dL (80-110); HEMOLYSIS < 15 (0-50); Potassium 4.2 mmol/L (3.4-5.1); Sodium 139 mmol/L (137-145); Total Protein 7.4 g/dL (6.3-8.2)
[2021-09-02 10:25] LABS: Free T3, Triiodothyronine Free 3.21 pg/mL (2.77-5.27); Free T4, Direct Thyroxine 0.85 ng/dL (0.78-2.19)
[2021-09-02 10:38] LABS: Thyroid Stimulating Hormone 5.54 uIU/mL (0.47-4.68)
== END ==
PROVIDERS: PCP Nurse Practitioner; Referring Provider Nurse Practitioner; Visit Provider Nurse Practitioner
DX: F33.9 Major depressive disorder, recurrent, unspecified (principal); F41.9 Anxiety disorder, unspecified; R73.01 Impaired fasting glucose; R79.89 Other specified abnormal findings of blood chemistry
CPT/HCPCS: 36415; 80053; 84439; 84443; 84481

== ENCOUNTER → 2021-09-20 11:36 | Outpatient (CLI) | payer MEDICARE, OTHER, SELFPAY ==
[2020-11-14 11:05] VITALS: BMI 38.6
--- NOTE | 2021-09-20 11:37 | DI.MG.S_ITS ---
BILATERAL DIGITAL SCREENING MAMMOGRAM 3D/2D WITH CAD: 09/20/2021 CLINICAL: Routine screening. Personal history of right breast cancer. Family history of breast cancer. Comparison is made to exams dated: 09/19/2020 mammogram, 07/07/2019 mammogram, 06/17/2019 mammogram, and 12/13/2017 mammogram - [facility]. There are scattered fibroglandular elements in both breasts. Current study was also evaluated with a Computer Aided Detection (CAD) system. There are benign vascular calcifications in the left breast. There also are benign post operative findings in the right breast. No significant masses, calcifications, or other findings are seen in either breast. There has been no significant interval change. IMPRESSION: BENIGN There is no mammographic evidence of malignancy. A 1 year screening mammogram is recommended. This exam was interpreted at Station ID: [id number]. NOTE: For mammograms, a report in lay terms will be sent to the patient. Approximately 15% of breast malignancies will not be visualized mammographically. In the management of a palpable breast mass, a negative mammogram must not discourage biopsy of a clinically suspicious lesion. Electronically Signed By: Minh Tolliver acr/penrad:09/20/2021 14:37:50 copy to: VIET LAM copy to: [facility], ph: [phone], fax: [phone] letter sent: Normal Exam ACR BI-RADS Category 2: Benign Finding(s) 3342F
== END ==
PROVIDERS: PCP Nurse Practitioner; Referring Provider Internal Medicine Hematology & Oncology; Visit Provider Internal Medicine Hematology & Oncology
DX: Z12.31 Encounter for screening mammogram for malignant neoplasm of breast (principal); C50.911 Malignant neoplasm of unspecified site of right female breast; Z80.3 Family history of malignant neoplasm of breast
CPT/HCPCS: 77063; 77067

== ENCOUNTER → 2022-01-10 12:59 | Outpatient (CLI) | payer MEDICARE, OTHER, SELFPAY ==
[2022-01-02 13:07] VITALS: BMI 38.6
[2022-01-10 13:52] LABS: Appearance Urine UA CLEAR; Bilirubin Urine UA NEGATIVE (NEGATIVE); Color Urine UA YELLOW; Glucose Urine UA NEGATIVE (Negative); Ketones Urine UA NEGATIVE (NEGATIVE); Leukocyte Esterase Urine UA NEGATIVE (NEGATIVE); Nitrite Urine UA NEGATIVE (Negative); Occult Blood Urine UA NEGATIVE (Negative); Protein Urine UA NEGATIVE (Negative); Specific Gravity Urine UA <=1.005 (1.000-1.035); Urobilinogen Urine UA 0.2 E.U./dL (0.2)
[2022-01-10 13:53] LABS: pH Urine UA 6.5 (4.5-8.0)
[2022-01-10 13:55] LABS: Bacteria Urine None Seen; Culture Indicated Urine Cult Not Indicated; RBC Urine None Seen (0-5/HPF); WBC Urine None Seen (0-5/HPF)
[2022-01-10 14:15] LABS: Alanine Aminotransferase 18 IU/L (<35); Albumin 4.6 g/dL (3.5-5.0); Albumin Globulin Ratio 1.3 (1.0-2.8); Alkaline Phosphatase 73 U/L (38-126); Aspartate Aminotransferase 28 IU/L (14-36); BUN Creatinine Ratio 22.4 (6-22); Bilirubin Total 0.5 mg/dL (0.2-1.3); Blood Urea Nitrogen 15 mg/dL (7-17); Calcium 8.9 mg/dL (8.4-10.2); Carbon Dioxide 27 mmol/L (22-32); Chloride 101 mmol/L (98-107); Estimated Glomerular Filt Rate > 60 mL/min (>60); Globulin 3.6 g/dL (1.7-4.1); Glucose 117 mg/dL (80-110); HEMOLYSIS 17 (0-50); Potassium 4.1 mmol/L (3.4-5.1); Sodium 138 mmol/L (137-145); Total Protein 8.2 g/dL (6.3-8.2)
[2022-01-10 14:18] LABS: Add Manual Diff / Slide Review NO; Basophils Absolute Auto 0 /uL (0-100); Basophils Percent Auto 0.6 % (0-2); Eosinophils Absolute Auto 200 /uL (0-450); Eosinophils Percent Auto 2.6 % (2-4); Hemoglobin 13.4 g/dL (12.0-16.0); Lymphocytes Absolute Auto 1800 /uL (1100-4500); Lymphocytes Percent Auto 28.5 % (25-40); Mean Corpuscular HGB Conc 34.4 % (30-36); Mean Corpuscular Hemoglobin 34.2 PG (26-34); Mean Corpuscular Volume 99.6 fL (80-100); Monocytes Absolute Auto 600 /uL (0-900); Monocytes Percent Auto 8.7 % (3-14); Neutrophils Absolute Auto 3800 /uL (1500-7000); Neutrophils Percent Auto 59.6 % (50-75); Platelet Count 275 X10^3/uL (150-400); Red Blood Cell Count 3.91 X10^6/uL (4.0-5.2); Red Cell Distribution Width 14.3 % (11.6-14.8); White Blood Cell Count 6.4 X10^3/uL (4.5-11.0)
== END ==
PROVIDERS: PCP Nurse Practitioner; Referring Provider Registered Nurse Diabetes Educator; Visit Provider Registered Nurse Diabetes Educator
DX: R10.9 Unspecified abdominal pain (principal)
CPT/HCPCS: 36415; 80053; 81001; 85025

== ENCOUNTER → 2022-01-19 12:55 | Outpatient (CLI) | payer MEDICARE, OTHER, SELFPAY ==
[2022-01-02 13:07] VITALS: BMI 38.6
--- NOTE | 2022-01-19 12:57 | DI.RAD.S_ITS ---
PROCEDURE: FL BARIUM ENEMA INDICATIONS: incomplete colonoscopy COMPARISON: None. FINDINGS: KUB: Preprocedural timing inspector film demonstrates a normal bowel gas pattern. No suspicious abdominal calcifications. Visualized solid organ contours appear normal in size. No suspicious bony lesions. Colon: There is suboptimal visualization of the colon in the region of the hepatic flexure and sigmoid colon secondary to colonic redundancy. No strictures or extrinsic mass effects are identified. Scattered colonic diverticuli noted in the distal left colon in the proximal sigmoid colon. No colonic fistulae or perforations. Colon caliber appears normal. Appendix opacifies and is normal. IMPRESSION: 1. Distal left colon and proximal sigmoid colon diverticulosis. 2. No abnormal mass in the colon. 3. No colonic stricture. Dictated by: Kalani Hendricks MD, PhD on 01/19/2022 at 15:43 Approved by: Kalani Hendricks MD, PhD on 01/19/2022 at 15:47
== END ==
PROVIDERS: PCP Nurse Practitioner; Referring Provider Surgery; Visit Provider Surgery
DX: Z12.11 Encounter for screening for malignant neoplasm of colon (principal); K57.30 Diverticulosis of large intestine without perforation or abscess without bleeding
CPT/HCPCS: 74270

== ENCOUNTER → 2022-03-01 10:48 | Outpatient (CLI) | payer MEDICARE, OTHER, SELFPAY ==
[2022-01-02 13:07] VITALS: BMI 38.6
[2022-03-01 12:26] LABS: BUN Creatinine Ratio 21.1 (6-22); Blood Urea Nitrogen 15 mg/dL (7-17); Calcium 8.7 mg/dL (8.4-10.2); Carbon Dioxide 27 mmol/L (22-32); Chloride 104 mmol/L (98-107); Estimated Glomerular Filt Rate > 60 mL/min (>60); Glucose 96 mg/dL (80-110); HEMOLYSIS < 15 (0-50); Potassium 4.2 mmol/L (3.4-5.1); Sodium 139 mmol/L (137-145)
--- NOTE | 2022-03-01 12:34 | DI.CT.S_ITS ---
PROCEDURE: CT ABDOMEN PELVIS W CON INDICATIONS: rule out adhesions, other cause of pain TECHNIQUE: After the administration of oral and IV contrast, axial sections were acquired from the lung bases to the pubic symphysis. Coronal and sagittal reformats were performed. For radiation dose reduction, the following was used: automated exposure control, adjustment of mA and/or kV according to patient size. COMPARISON: [facility], CT, CT KIDNEY URETER BLADDER (KUB), 11/15/2020, 13:46. [facility], CT, CT ABD PELVIS W&WO CON IVP, 04/26/2017, 14:19. FINDINGS: Image quality: Excellent. Lung bases: Unremarkable. Heart: No significant findings. ABDOMEN: Liver: Unremarkable. Gallbladder: Unremarkable. Biliary ducts: Unremarkable. Pancreas: Unremarkable. Spleen: Unremarkable. Adrenal Glands: Unremarkable. Kidneys and Ureters: Right-sided extrarenal pelvis is seen, which has progressed compared to the prior examination, yet is similar compared to 2017. There is a normal caliber right ureter. The left kidney is unremarkable. The kidneys demonstrate normal size and enhance symmetrically. Stomach and Bowel: Stomach, small bowel loops, and colon are unremarkable. A normal appendix is incidentally noted. Peritoneum: No abnormal intraperitoneal fluid. No free air. Ventral Wall: A mild periumbilical hernia is seen, containing fat. Abdominal Nodes: No retroperitoneal or mesenteric adenopathy by size criteria. Vessels: Aorta and inferior vena cava are normal in size. PELVIS: Pelvic Organs: Unremarkable. This patient is status post hysterectomy. No adnexal masses are seen. Bladder: No significant abnormality of the bladder can be seen. Pelvic Nodes: No enlarged lymph nodes. Miscellaneous: No inguinal hernias are seen. Bones: Mild levoconvex scoliotic curvature is noted. Degenerative changes are seen throughout, which are worst involving the lower lumbar spine. IMPRESSION: Prior hysterectomy change, without regional abnormality seen. No dilated loops of small bowel are seen. No findings of obstruction. 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 Mild fat containing periumbilical hernia Normal appendix Focal lower lumbar spine degenerative change Dictated by: Benjamin Marquez M.D. on 03/01/2022 at 15:27 Approved by: Benjamin Marquez M.D. on 03/01/2022 at 15:32
== END ==
PROVIDERS: PCP Nurse Practitioner; Referring Provider Nurse Practitioner; Visit Provider Nurse Practitioner
DX: Z01.812 Encounter for preprocedural laboratory examination (principal); R10.9 Unspecified abdominal pain; K42.9 Umbilical hernia without obstruction or gangrene; M47.816 Spondylosis without myelopathy or radiculopathy, lumbar region; Z90.710 Acquired absence of both cervix and uterus
CPT/HCPCS: 36415; 74177; 80048

== ENCOUNTER 2022-03-15 09:57 | Emergency (ER) | payer MEDICARE, OTHER, SELFPAY ==
[2022-01-02 13:07] VITALS: BMI 38.6
[2022-03-15 10:00] VITALS: BP 189/101; PULSE 87; RESP 16; TEMP 36.8; O2SAT 97; BMI 40.7
--- NOTE | 2022-03-15 10:03 | DI.RAD.S_ITS ---
PROCEDURE: XR WRIST LT MIN 3V INDICATIONS: wrist pain TECHNIQUE: 4 views of the wrist were acquired. COMPARISON: None. FINDINGS: Bones: No fractures or dislocations. No suspicious bony lesions. Joint space narrowing and periarticular osteophyte formation at the radial carpal, scaphoid trapezial, and 1st carpometacarpal joints, indicating osteoarthritis. Scaphoid view: Negative Soft tissues: No suspicious soft tissue calcifications. IMPRESSION: Osteoarthritis. No acute fracture. No osseous lesion. If symptoms and/or clinical suspicion for pathology persist, further assessment with repeat, or advanced imaging (e.g., CT, MRI, or bone scan) may be helpful for further assessment. Dictated by: Ning Peraza M.D. on 03/15/2022 at 10:41 Approved by: Ning Peraza M.D. on 03/15/2022 at 10:42
[2022-03-15 10:49] VITALS: BP 148/78; PULSE 78; RESP 18; O2SAT 98
[2022-03-15 11:46] VITALS: BP 140/62; PULSE 68; RESP 18; O2SAT 98
[2022-03-15] MEDS: HYDROCODONE/ACET 5/325 TABLET 1 TAB PO (12:24)
[2022-03-15] MEDS: KETOROLAC 30 MG/ML VIAL 15 MG IM (12:25)
--- NOTE | 2022-03-15 18:45 | ED_ITS ---
HPI - Extremity Injury (Upper) <Brooke Manning, [facility] - Last Filed: 03/15/22 19:10> General Chief Complaint: Extremity Injury, Upper Stated Complaint: left wrist injury/ pain Time Seen by Provider: 03/15/22 12:03 Source: patient Mode of arrival: Ambulatory History of Present Illness HPI narrative: This is a 76-year-old female who woke up this morning with worsening left wrist pain and a history of a ganglion cyst in her left wrist, states her MCP joint is fused, this happened a long time ago and she endorses a history of rheumatoid arthritis as well as osteoarthritis. She states that NSAIDs her stomach, she denies taking any opioids for her pain. She endorses pain with all movement, states it was worse this morning, denies any recent injury, denies any sensation changes, denies any nerve pain or tingling in her fingertips. She endorses she still has range of motion but all movement is painful. She states that she is right-handed, has a appointment with Orthopedics on March 20, states she could not wait due to the pain. Related Data Home Medications Medication Instructions Recorded Confirmed multivitamin (Daily Multi-Vitamin 1 tab PO DAILY 03/24/19 02/12/22 tablet) calcium carbonate 600 mg calcium 300 mg PO BID 07/14/19 02/12/22 (1,500 mg) tablet (Calcium) cholecalciferol (vitamin D3) 25 1,200 unit PO DAILY 07/14/19 02/12/22 mcg (1,000 unit) capsule melatonin 5 mg tablet 5 mg PO BEDTIME PRN INSOMNIA 05/11/20 02/12/22 diltiazem HCl 120 mg 240 mg PO DAILY 07/21/20 02/12/22 capsule,extended release 12 hr docusate sodium 100 mg capsule 100 mg PO BID PRN Constipation 09/02/20 02/12/22 B-complex with vitamin C 1 tab PO DAILY 09/04/21 02/12/22 acetaminophen 500 mg capsule 1,000 mg PO TID 09/04/21 02/12/22 ascorbic acid (vitamin C) 500 mg 500 mg PO DAILY 09/04/21 02/12/22 tablet aspirin 325 mg tablet 325 mg PO DAILY 09/04/21 02/12/22 diclofenac sodium 1 % topical gel 2 g topical QID 09/25/21 02/12/22 Previous Rx's Medication Instructions Recorded albuterol sulfate 90 mcg/actuation 1 - 2 puff inhalation EVERY 4-6 HR 08/13/18 aerosol inhaler (Ventolin HFA) PRN sob #8.5 grams salicylic acid 2 % topical cream 1 applic topical DAILY #227 grams 11/11/20 (CeraVe Psoriasis) aspirin 81 mg tablet,delayed 81 mg PO DAILY #60 tabs 02/14/21 release sodium,potassium,mag sulfates 17.5 See Rx Instructions PO .COMPLEX 03/29/21 gram-3.13 gram-1.6 gram oral soln #354 mL (Suprep Bowel Prep Kit) sodium,potassium,mag sulfates 17.5 See Rx Instructions PO .COMPLEX 04/17/21 gram-3.13 gram-1.6 gram oral soln #354 mL (Suprep Bowel Prep Kit) hydrocodone 5 mg-acetaminophen 325 1 tab PO Q6H PRN pain #14 tabs 03/15/22 mg tablet meloxicam 7.5 mg tablet 7.5 mg PO DAILY PRN pain #10 tabs 03/15/22 omeprazole 20 mg tablet,delayed 20 mg PO DAILY #10 tabs 03/15/22 release Allergies Allergy/AdvReac Type Severity Reaction Status Date / Time adhesive Allergy Severe Blister Verified 03/15/22 10:03 NSAIDS (Non-Steroidal AdvReac Severe UPSET GI Verified 03/15/22 10:03 Anti-Inflamma [NSAIDS (NON-STEROIDAL ANTI-INFLAMMA] tramadol [TRAMADOL] AdvReac Severe hyperactivity, Verified 03/15/22 10:03 GI upset zoledronic acid AdvReac Severe every Verified 03/15/22 10:03 [From Reclast] bone in by body hurt alendronate sodium AdvReac Mild Gastrointestinal Verified 03/15/22 10:03 [From Fosamax] Upset Review of Systems <Brooke Manning [employer] - Last Filed: 03/15/22 19:10> Review of Systems Narrative: General: denies fever, chills, malaise, sweats, fatigue Head/Neck: denies headache, neck pain, dizziness Eyes: denies visual changes, eye pain Cardio: denies chest pain, palpitations, edema Respiratory: denies dyspnea, cough, orthopnea GI: denies abdominal pain, nausea, vomiting, or diarrhea : denies dysuria, hematuria, urinary retention, frequency or incontinence MSK: denies joint pain, muscle weakness, left wrist pain with movement Skin: denies rash, itching, skin lesions or other Neuro: denies numbness, tingling Patient History <TALISHA East - Last Filed: 03/15/22 19:10> Medical History Abdominal pain, RLQ Anxiety Bilateral cataracts Bilateral mastodynia Bradycardia Breast cancer, right breast Breast lump in female Bronchitis Bruises easily Cardiac arrhythmia Chronic headaches Chronic pain Compression fracture Compression fracture of body of thoracic vertebra Delayed surgical wound healing Depression Difficulty swallowing Edema Elevated TSH Fibromyalgia Former smoker Frequent PVCs Gastritis Gastritis GERD (gastroesophageal reflux disease) History of malignant neoplasm of uterine body Hydronephrosis of right kidney Hypercholesterolemia Hyperlipidemia Hypertension Hypothyroidism (acquired) Insomnia Irregular heartbeat Lumbar and sacral arthritis Menopause (1974) Migraines Myocardial infarction (2015) Neoplasm of uncertain behavior Nocturia more than twice per night Numbness Obesity (BMI 30.0-34.9) Osteoarthritis Osteoarthritis of multiple joints (04/11/17) Osteoporosis (07/16/16) PVCs (premature ventricular contractions) Radiation-induced dermatitis Screening for colon cancer SOB (shortness of breath) Spinal stenosis Spinal stenosis Unilateral primary osteoarthritis, right knee Ureteral obstruction, right Urinary incontinence UTI (urinary tract infection) Surgical History H/O arthroscopic knee surgery History of colonoscopy History of esophagogastroduodenoscopy (EGD) History of hysterectomy History of knee surgery History of total knee arthroplasty (01/28/18) Hx of partial mastectomy (08/14/19) Hx of thumb surgery S/P foot surgery, right S/P partial mastectomy S/P total knee arthroplasty Status post arthroscopy Status post hysterectomy Status post tubal ligation (1974) Family History Mother Hypertension Stroke Cancer Grandmother Hypertension Heart disease Father Cancer Brother Cancer Social History marital status: household members: spouse lives independently: Yes caregiver/support person: No housing: house Smoking Status: Former smoker second hand exposure: No alcohol intake: current substance use type: does not use Smoking Status: Former smoker alcohol intake frequency: 0-2 drinks per day Substance Use Type: marijuana Exam <TALISHA East - Last Filed: 03/15/22 19:10> Narrative Exam Narrative: Independently reviewed vitals signs and nursing notes. General: cooperative, comfortable, in no acute distress, well groomed Head: atraumatic, symmetrical facial expressions Neck: supple Eyes: equal round and reactive, EOMI, conjunctiva normal Nose: nares patent, no rhinorrhea Mouth/Throat: moist mucus membranes Cardiovascular: regular rate and rhythm, no peripheral edema, warm extremities Respiratory: normal effort, able to speak in complete sentences, no audible wheezing, stridor, or rales. No retractions or tachypnea. GI: abdomen soft, nontender to palpation, nondistended, no masses, no exquisite tenderness with exam, without guarding or rebound. MSK: moves all extremities, neurovascularly intact, no weakness, normal tone, mild edema of her left wrist without any erythema, range of motion is limited p artially due to effusion and due to pain, patient has full range of motion of all four fingers, no sensation deficit, cap refills brisk, radial pulses 2+ and strong. Skin: brisk capillary refill, no rash, no erythema Neuro: normal speech and cognition, A&O x3 Psych: mental status is grossly normal, congruent mood, normal affect, pleasant and cooperative Initial Vital Signs Initial Vital Signs: Vital Signs Temperature 98.3 F 03/15/22 10:00 Pulse Rate 87 03/15/22 10:00 Respiratory Rate 16 03/15/22 10:00 Blood Pressure 189/101 H 03/15/22 10:00 Pulse Oximetry 97 03/15/22 10:00 Oxygen Delivery Method 03/15/22 10:00 <Yoselin Ayoub DO - Last Filed: 03/17/22 19:41> Initial Vital Signs Initial Vital Signs: Vital Signs Temperature 98.3 F 03/15/22 10:00 Pulse Rate 87 03/15/22 10:00 Respiratory Rate 16 03/15/22 10:00 Blood Pressure 189/101 H 03/15/22 10:00 Pulse Oximetry 97 03/15/22 10:00 Oxygen Delivery Method 03/15/22 10:00 Procedures <TALISHA East - Last Filed: 03/15/22 19:10> Orthopedic Splinting/Casting Injury #1: Side: left Upper Extremity Injury Location: wrist Upper Extremity Immobilizer: wrist splint Post splinting neuro exam: intact Post splinting vascular exam: intact Placed by: Nursing Course <TALISHA East - Last Filed: 03/15/22 19:10> Orders Ordered: Discontinued Medications Hydrocodone Bitart/Acetaminophen (Hydrocodone/Acet 5/325 Tablet) 1 tab PO NOW ONE Stop: 03/15/22 12:19 Last Admin: 03/15/22 12:24 Dose: 1 tab Documented By: AT Ketorolac Tromethamine (Ketorolac 30 Mg/Ml Vial) 15 mg IM NOW ONE Stop: 03/15/22 12:19 Last Admin: 03/15/22 12:25 Dose: 15 mg Documented By: AT Vital Signs Vital signs: Vital Signs - 8 hr 03/15/22 11:46 Pulse Rate 68 Respiratory Rate 18 Blood Pressure 140/62 Pulse Oximetry 98 <Yoselin Ayoub DO - Last Filed: 03/17/22 19:41> Orders Ordered: Discontinued Medications Hydrocodone Bitart/Acetaminophen (Hydrocodone/Acet 5/325 Tablet) 1 tab PO NOW ONE Stop: 03/15/22 12:19 Last Admin: 03/15/22 12:24 Dose: 1 tab Documented By: AT Ketorolac Tromethamine (Ketorolac 30 Mg/Ml Vial) 15 mg IM NOW ONE Stop: 03/15/22 12:19 Last Admin: 03/15/22 12:25 Dose: 15 mg Documented By: AT Vital Signs Vital signs: Vital Signs - 8 hr 03/15/22 11:46 Pulse Rate 68 Respiratory Rate 18 Blood Pressure 140/62 Pulse Oximetry 98 MDM - Extremity Injury (Upper) <TALISHA East - Last Filed: 03/15/22 19:10> Imaging Data Extremity x-ray #1: Radiologist's Impression: PROCEDURE:? XR WRIST LT MIN 3V ? INDICATIONS: wrist pain ? TECHNIQUE:? 4 views of the wrist were acquired.? ? COMPARISON:? None. ? FINDINGS:? ? Bones:? No fractures or dislocations.? No suspicious bony lesions.? Joint space narrowing and periarticular osteophyte formation at the radial carpal, scaphoid trapezial, and 1st carpometacarpal joints, indicating osteoarthritis. ? Scaphoid view:? Negative ? Soft tissues:? No suspicious soft tissue calcifications.? ? IMPRESSION:? Osteoarthritis. No acute fracture. No osseous lesion. If symptoms and/or clinical suspicion for pathology persist, further assessment with repeat, or advanced imaging (e.g., CT, MRI, or bone scan) may be helpful for further assessment. ? ? Dictated by: Ning Peraza M.D. on 03/15/2022 at 10:41 ? ? Approved by: Ning Peraza M.D. on 03/15/2022 at 10:42 ? MDM Narrative Medical decision making narrative: This is a 76-year-old female with history of osteoarthritis, reported rheumatoid arthritis who presents to the emergency department without injury to her left wrist and complains of left wrist pain when she woke up today and worsening pain with all movement. X-ray of her left wrist shows osteoarthritis, no acute fracture, no osseous lesion, joint space narrowing and periarticular osteophyte formation of the radial carpal, scaphoid trapezial, and 1st carpometacarpal joints. Discussed pain management with the patient, she has an orthopedic appointment pending on March 20, 2022 with Claudia Miramontes. Patient has a prior fusion of her left MCP joint, shows significant arthritis on her x-ray, she endorses history of this. She was fitted in a Velcro wrist splint, states is comfortable, I encouraged her to wear this at nighttime if she needs to, use topical Voltaren gel, she was given Toradol in the emergency department today with improvement of her pain. She was also given Ronan wrap to wrap her wrist into offer support and I encouraged her to continue to do gentle range of motion throughout the day and avoid immobilization for long periods of time. Encouraged to use ice, elevation, rest, and follow-up with outpatient providers as needed. Patient is appropriate and amenable to discharge home. Vital signs are stable on repeat examination is unremarkable. Patient has been informed of results. Patient has been given strict return to ER precautions for any new or worsening symptoms. Patient understands to follow up closely with outpatient providers as instructed. Patient understands plan and agrees to discharge home. All questions and concerns answered at this time. Discharge Plan Departure Patient Disposition: Home Clinical Impression: Osteoarthritis (arthritis due to wear and tear of joints) Qualifiers: Osteoarthritis location: wrist Osteoarthritis type: unspecified Laterality: left Qualified Code(s): M19.032 - Primary osteoarthritis, left wrist Acute wrist pain Qualifiers: Laterality: left Qualified Code(s): M25.532 - Pain in left wrist Instructions: DI for Osteoarthritis, DI for Wrist Pain, How to Apply an Elastic Wrap on Wrist Activity Restrictions/Additional Instructions: *You have been diagnosed with a flare of your left wrist and some osteoarthritis. This is likely also related to your prior fusion, please continue using your Voltaren gel up to 4 times daily, ice is helpful continue gentle range of motion but no excess activity. Keeping it elevated will help, you can wear a wrist splint or Ronan bandage at nighttime for support. Please take additional pain medication every 6 hours as needed for your pain, consider a stool softener if you are prone to constipation. Stay hydrated, follow-up with Dr. Miramontes at your next appointment on 20 of March. *What to do: *Please continue to take your regular medications as directed. [x ] New medication prescriptions sent to your pharmacy: [[facility] ] [ ] New medication written as a paper prescription [ ] No new medications given *Please follow up with your primary care provider in 2-3 days, call for an appointment. Let them know you were seen in the Emergency Department and that we asked that you be seen for follow-up. We will electronically transmit a record of today's note if your PCP is in our system *If you do not have a primary care provider please contact [phone] to establish care with one of the [facility] primary care providers. *Return to Emergency Department if you should have any new, worsening or concerning symptoms, such as [fever greater than 101F, chills, worsening pain, persistent vomiting or other bothersome symptoms] Prescriptions: New hydrocodone-acetaminophen 5-325 mg tablet 1 tab PO Q6H PRN (Reason: pain) Qty: 14 0RF meloxicam 7.5 mg tablet 7.5 mg PO DAILY PRN (Reason: pain) Qty: 10 0RF omeprazole 20 mg tablet,delayed release (DR/EC) 20 mg PO DAILY Qty: 10 0RF No Action albuterol sulfate [Ventolin HFA] 90 mcg/actuation HFA aerosol inhaler 1 - 2 puff INHALATION EVERY 4-6 HR PRN (Reason: sob) Qty: 8.5 3RF aspirin 81 mg tablet,delayed release (DR/EC) 81 mg PO DAILY Qty: 60 0RF Suprep Bowel Prep Kit 17.5-3.13-1.6 gram recon soln See Rx Instructions PO .COMPLEX Qty: 354 0RF Rx Instructions: DILUTE; drink full amount early evening before AND next morning at least 2 hr before procedure; follow w 32 oz. water PO Suprep Bowel Prep Kit 17.5-3.13-1.6 gram recon soln See Rx Instructions PO .COMPLEX Qty: 354 0RF Rx Instructions: DILUTE; drink full amount early evening before AND next morning at least 2 hr before procedure; follow w 32 oz. water PO CeraVe Psoriasis 2 % cream 1 applic topical DAILY Qty: 227 3RF Rx Instructions: Apply to affected area daily multivitamin [Daily Multi-Vitamin] tablet 1 tab PO DAILY cholecalciferol (vitamin D3) 1,000 unit capsule 1,200 unit PO DAILY calcium carbonate [Calcium 600] 600 mg calcium (1,500 mg) tablet 300 mg PO BID acetaminophen 500 mg capsule 1,000 mg PO TID aspirin 325 mg tablet 325 mg PO DAILY ascorbic acid (vitamin C) 500 mg tablet 500 mg PO DAILY B-complex with vitamin C Tablet 1 tab PO DAILY diltiazem HCl 120 mg capsule,extended release 12 hr 240 mg PO DAILY Rx Instructions: pt to confirm dose diclofenac sodium 1 % Gel 2 g TOPICAL QID Rx Instructions: apply to single elbow, wrist or hand; for hand includes palm/fingers/back of hand melatonin 5 mg Tablet 5 mg PO BEDTIME PRN (Reason: INSOMNIA) docusate sodium 100 mg capsule 100 mg PO BID PRN (Reason: Constipation) Referrals: Melvina Penny ARNP [Primary Care Provider] - Claudia Miramontes MD [Physician] - Visit Report Forms: Patient Portal/API <Yoselin Ayoub DO - Last Filed: 03/17/22 19:41> Cosign ED Attending Edmundature Attestation: I was immediately available in the department for consultation. Documentation has been reviewed.
== END 2022-03-15 12:39 | disposition home or self-care (01) ==
PROVIDERS: Emergency Provider Nurse Practitioner Critical Care Medicine; PCP Nurse Practitioner
DX: M19.032 Primary osteoarthritis, left wrist (principal); M25.532 Pain in left wrist
CPT/HCPCS: 73110; 96372; 99283; 99284; J1885

== ENCOUNTER → 2022-04-06 07:50 | Outpatient (CLI) | payer MEDICARE, OTHER, SELFPAY ==
[2022-01-02 13:07] VITALS: BMI 38.6
--- NOTE | 2022-04-06 | DI.MRI.S_ITS ---
PROCEDURE: MR WRIST LT WO CON INDICATIONS: Post-traumatic osteoarthritis, left wrist TECHNIQUE: Noncontrast coronal proton density fast spin echo and T2 fast spin echo with fat saturation; coronal 3-D gradient echo, axial T1 spin echo and T2 fast spin echo with fat saturation, sagittal T1 spin echo through the wrist. COMPARISON: [facility], CR, XR WRIST LT MIN 3V, 03/15/2022, 10:02. FINDINGS: Image quality: Excellent. Bones and cartilage: Linear signal abnormality within the volar aspect of the lunate extending to the proximal and distal articular surfaces is suspicious for a healing fracture. There is mild osseous edema. There is chronic osseous fusion across the 1st carpometacarpal joint, which is most likely related to remote prior surgery. Degenerative changes are seen at the triscaphe joint with full-thickness cartilage loss as well as subchondral cystic changes and edema and marginal osteophyte formation. Degenerative changes are also noted between the 1st and 2nd metacarpal bases. Carpal bones appear to be normally aligned. No evidence for avascular necrosis. Carpal ligaments: There is probable tearing of the volar band of the scapholunate ligament, which inserts onto the smaller lunate fracture fragment. The dorsal band of the ligament demonstrates mildly increased signal without definite disruption of ligament fibers. No widening of the scapholunate interval is seen. The lunotriquetral ligament is grossly intact. On sagittal images, the pisohamate ligament appears intact. Triangular fibrocartilage complex: Possible small degenerative perforation tear of the triangle fibrocartilage at the central to radial aspect. There is mildly increased signal within the ulnar attachments that is suspicious for partial tearing without complete disruption of ligament fibers identified. Tendons and soft tissues: The carpal tunnel structures appear normal, including the median nerve. The ulnar nerve appears normal within Guyon's canal. There is mild tendinosis of the extensor carpi ulnaris tendon. Mild tendinosis is also seen involving the extensor pollicis brevis and abductor pollicis longus tendons in the 1st extensor compartment as well as the extensor pollicis longus tendon and the 3rd compartment. The remaining extensor tendon compartments demonstrate normal morphology, without pathologic tendon sheath fluid. Focal prominent fat lobule versus subcutaneous lipoma at the volar aspect of the wrist just ulnar to the palmaris longus tendon measures approximately the 9 x 6 x 12 mm (17/8 and 15/6). Lobular ganglion cyst versus prominent vein at the volar radial aspect of the wrist measures approximately 6 x 3 x 4 mm. Tiny ganglion cyst dorsal to the trapezoid capitate articulation near the 2nd and 3rd carpometacarpal joints, which measures 5 x 2 x 2 mm. IMPRESSION: 1. Nondisplaced intra-articular fracture at the volar aspect of the lunate with mild surrounding osseous edema. 2. Partial tearing of the scapholunate ligament involving the volar band adjacent to the lunate fracture. The dorsal band demonstrates chronic low-grade sprain without definite discontinuity of tendon fibers. No widening of the scapholunate interval. 3. Suspected small full-thickness degenerative perforation of the triangular fibrocartilage disc and low-grade sprains of the ulnar styloid and foveal attachments. 4. Chronic postsurgical changes with solid osseous fusion across the 1st carpometacarpal joint space. 5. Severe osteoarthrosis at the triscaphe joint with full-thickness cartilage loss, subchondral cystic changes and edema, and marginal osteophyte formation. 6. Mild tendinosis of the extensor tendons within the 1st, 3rd, and 6th extensor compartments. 7. Focal prominent fat lobule versus small subcutaneous lipoma measuring up to 12 mm at the volar aspect of the wrist adjacent to the palmaris longus tendon. Small 6 mm ganglion cyst versus prominent vessel at the volar radial aspect of the wrist. 5 mm ganglion cyst is seen along the dorsum of the wrist at the level of the 2nd and 3rd carpometacarpal joints. Dictated by: Jose Reed M.D. on 04/06/2022 at 9:56 Approved by: Jose Reed M.D. on 04/06/2022 at 10:21
== END ==
PROVIDERS: PCP Nurse Practitioner; Referring Provider Physician Assistant Medical; Visit Provider Physician Assistant Medical
DX: S62.125A Nondisplaced fracture of lunate [semilunar], left wrist, initial encounter for closed fracture (principal); S63.592A Other specified sprain of left wrist, initial encounter; M19.132 Post-traumatic osteoarthritis, left wrist; M67.432 Ganglion, left wrist
CPT/HCPCS: 73221

== ENCOUNTER → 2022-04-13 11:06 | Outpatient (CLI) | payer MEDICARE, OTHER, SELFPAY ==
[2022-01-02 13:07] VITALS: BMI 38.6
--- NOTE | 2022-04-13 11:08 | DI.CT.S_ITS ---
PROCEDURE: CT CHEST WO CON INDICATIONS: worsening SOB, h/o smoking and breast cancer TECHNIQUE: Noncontrast 5 mm thick sections acquired from the pulmonary apices to the posterior costophrenic angles. 1 mm lung window, 5 mm thick coronal and sagittal and 7 mm axial MIP reformats were then acquired. For radiation dose reduction, the following was used: automated exposure control, adjustment of mA and/or kV according to patient size. COMPARISON: [facility], CT, CT CHEST WO CON, 11/15/2020, 13:46. FINDINGS: Image quality: Excellent. Lungs and pleura: No acute air space opacities. No pleural effusions or pneumothorax. Central and peripheral airways are patent and normal in caliber. Mediastinum: Heart size is normal. The coronary arteries have atherosclerotic calcifications. No pericardial effusion. No mediastinal adenopathy by size criteria. Thoracic aorta and central pulmonary arteries are normal in size. Esophagus is normal in caliber. No hiatal hernia. Bones and chest wall: No suspicious bony lesions. No vertebral body compression fractures. No axillary or supraclavicular adenopathy by size criteria. Thyroid gland is normal. The right breast demonstrates parenchymal distortion, unchanged compared to prior study consistent with lumpectomy. Surgical clips are noted in the axilla consistent with prior axillary node dissection. Abdomen: Limited visualization of the upper abdomen shows no acute abnormality. IMPRESSION: 1. No acute abnormality of the chest. 2. No evidence of metastatic disease to the chest. 3. Postoperative changes of the right breast. 4. Coronary artery disease. Dictated by: Minh Tolliver M.D. on 04/13/2022 at 14:13 Approved by: Minh Tolliver M.D. on 04/13/2022 at 14:19
== END ==
PROVIDERS: PCP Nurse Practitioner; Referring Provider Internal Medicine Hematology & Oncology; Visit Provider Internal Medicine Hematology & Oncology
DX: C50.911 Malignant neoplasm of unspecified site of right female breast (principal); R06.02 Shortness of breath; I25.10 Atherosclerotic heart disease of native coronary artery without angina pectoris; F17.210 Nicotine dependence, cigarettes, uncomplicated
CPT/HCPCS: 71250

== ENCOUNTER → 2022-06-05 14:44 | Outpatient (CLI) | payer MEDICARE, OTHER, SELFPAY ==
[2022-01-02 13:07] VITALS: BMI 38.6
== END ==
PROVIDERS: PCP Nurse Practitioner; Referring Provider Internal Medicine Hematology & Oncology; Visit Provider Internal Medicine Hematology & Oncology
DX: M81.0 Age-related osteoporosis without current pathological fracture (principal); M06.9 Rheumatoid arthritis, unspecified; Z87.311 Personal history of (healed) other pathological fracture; Z90.710 Acquired absence of both cervix and uterus
CPT/HCPCS: 77080

== ENCOUNTER → 2022-07-04 11:14 | Outpatient (CLI) | payer MEDICARE, OTHER, SELFPAY ==
[2022-01-02 13:07] VITALS: BMI 38.6
--- NOTE | 2022-07-04 | DI.MRI.S_ITS ---
PROCEDURE: MR LUMBAR SPINE WO CON INDICATIONS: Spinal stenosis, lumbar region TECHNIQUE: Noncontrast sagittal T1 spin echo and T2 fast echo, sagittal STIR, and T2 fast spin echo through the lumbar spine. In cases with scoliosis, additional coronal T2 fast spin echo may be performed. COMPARISON: [facility], CT, CT ABDOMEN PELVIS W CON, 03/01/2022, 12:37. [facility], MR, L-SPINE WITHOUT CONTRAST, 08/07/2012, 13:30. [facility], MR, L-SPINE WITHOUT CONTRAST, 07/29/2014, 10:53. [facility], MR, L-SPINE WITHOUT CONTRAST, 03/25/2009, 18:04. FINDINGS: Image quality: Excellent. Alignment and Curvature: Minimal retrolisthesis can be seen at L1-L2 and L2-L3. There is mild anterolisthesis seen at the L5-S1 level. Bone Marrow: Marrow is of normal overall signal. Scattered foci are seen, which are hyperintense on T1-weighted and T2-weighted imaging, which are most consistent with benign vertebral body hemangiomas. No acute vertebral body compression fractures. Spinal Cord: Conus medullaris terminates at the L1 level. Visualized cord demonstrates normal signal and size. Paraspinous Soft Tissues: No paravertebral masses. T12-L1: Moderate loss of disc height is seen. Loss of disc signal is seen. Bridging endplate osteophytes are seen. No significant neural foraminal or central canal narrowing can be seen. When comparison is made with the prior images, these findings are similar. L1-L2: Moderate loss of disc height is seen. Loss of disc signal is seen. Bridging endplate osteophytes are seen. Mild to moderate disc bulge is seen, which is eccentric to the left. There is a superimposed central disc protrusion. Moderate facet joint hypertrophy is seen. There is moderate left-sided and no right-sided neural foraminal narrowing. Mild to moderate central canal narrowing is seen. These imaging findings have progressed compared to the prior study. L2-L3: Moderate loss of disc height is seen. Loss of disc signal is seen. At least moderate disc bulge is seen, which is eccentric to the left. There is a superimposed central disc protrusion. Posteriorly projected endplate osteophytes are seen. Moderate facet joint hypertrophy is seen. There is moderate left-sided and at least moderate right-sided neural foraminal narrowing. Moderate central canal narrowing is seen. These degenerative changes are minimally progressed compared to 2014. L3-L4: Mild loss of disc height is seen. Loss of disc signal is seen. Moderate generalized disc bulge is seen. There is a superimposed central disc protrusion. Moderate to prominent facet hypertrophy is seen. Associated hypertrophy of the ligamentum flavum can be seen. There is moderate right-sided and at least moderate left-sided neural foraminal narrowing. Moderate to severe central canal narrowing is seen, as on series 5, image 22. Compared to 2014, these degenerative changes are clearly progressed L4-L5: Moderate loss of disc height is seen. Loss of disc signal is seen. Moderate generalized disc bulge is seen. There is a superimposed central disc protrusion. Mild facet joint hypertrophy is seen. Moderate bilateral neural foraminal narrowing is seen. At least moderate central canal narrowing is seen, as on series 5, image 26. These degenerative changes are worse than in 2014. L5-S1: Moderate to severe loss of disc height and disc signal can be seen. At least moderate disc bulge is seen. Moderate facet joint hypertrophy is seen. There is at least moderate bilateral neural foraminal narrowing seen. Moderate central canal narrowing is seen. These imaging findings have progressed compared to the prior study. IMPRESSION: Multiple levels of lumbar spine degenerative change are seen, which are progressed compared to 2014. Dictated by: Benjamin Marquez M.D. on 07/04/2022 at 14:31 Approved by: Benjamin Marquez M.D. on 07/04/2022 at 14:36
== END ==
PROVIDERS: PCP Nurse Practitioner; Referring Provider Orthopaedic Surgery Orthopaedic Surgery of the Spine; Visit Provider Orthopaedic Surgery Orthopaedic Surgery of the Spine
DX: M48.062 Spinal stenosis, lumbar region with neurogenic claudication (principal); M47.816 Spondylosis without myelopathy or radiculopathy, lumbar region; M47.817 Spondylosis without myelopathy or radiculopathy, lumbosacral region
CPT/HCPCS: 72148

== ENCOUNTER → 2022-08-02 11:12 | Outpatient (CLI) | payer MEDICARE, OTHER, SELFPAY ==
[2022-01-02 13:07] VITALS: BMI 38.6
--- NOTE | 2022-08-02 | DI.CT.S_ITS ---
PROCEDURE: CT LUMBAR SPINE WO CON INDICATIONS: lumbar stenosis with neurogenic claudication TECHNIQUE: Noncontrast 3 mm thick sections acquired from the T12 level to the sacrum. Sagittal and coronal reformats were constructed. For radiation dose reduction, the following was used: automated exposure control. COMPARISON: [facility], MR, MR LUMBAR SPINE WO CON, 07/04/2022, 11:37. FINDINGS: Image quality: Excellent. Bones: There is normal bony alignment. No acute vertebral body compression fractures. No suspicious lytic or blastic bony lesions. No pars defects. T12-L1: No canal stenosis or foraminal stenosis. L1-L2: No canal stenosis. Moderate left foraminal stenosis with flattening deformity on the exiting left L1 nerve root L2-L3: Disc bulge. Facet hypertrophy. Vkbh-qs-rjuivhho canal stenosis. At least moderate bilateral foraminal narrowing. L3-L4: Moderate to severe canal stenosis. Disc bulge. Trace anterolisthesis of L3 on L4. Facet hypertrophy. Tsxw-ft-[id number] right foraminal narrowing. Mild left foraminal narrowing. L4-L5: Disc bulge. Facet and ligament hypertrophy. Moderate canal stenosis. Moderate bilateral foraminal stenosis. L5-S1: Disc bulge. No central canal stenosis. Moderate to severe bilateral foraminal narrowing with bilateral L5 nerve root impingement. Soft tissues: No retroperitoneal masses or hematomas. Visualized aorta is normal in caliber. IMPRESSION: 1. No evidence acute bony abnormality of the lumbar spine. 2. Multilevel facet arthropathy. 3. There is canal stenosis from L2-L3 through L4-L5, moderate to severe at L3-L4. 4. Multilevel foraminal narrowing as described above. Dictated by: Gabe Gramajo M.D. on 08/02/2022 at 18:43 Approved by: Gabe Gramajo M.D. on 08/02/2022 at 18:48
== END ==
PROVIDERS: PCP Nurse Practitioner; Referring Provider Orthopaedic Surgery Orthopaedic Surgery of the Spine; Visit Provider Orthopaedic Surgery Orthopaedic Surgery of the Spine
DX: M48.062 Spinal stenosis, lumbar region with neurogenic claudication (principal); M47.816 Spondylosis without myelopathy or radiculopathy, lumbar region
CPT/HCPCS: 72131

== ENCOUNTER → 2022-09-11 10:33 | Outpatient (CLI) | payer MEDICARE, OTHER, SELFPAY ==
[2022-01-02 13:07] VITALS: BMI 38.6
[2022-09-11 11:07] LABS: Add Manual Diff / Slide Review NO; Basophils Absolute Auto 100 /uL (0-100); Basophils Percent Auto 0.8 % (0-2); Eosinophils Absolute Auto 100 /uL (0-450); Eosinophils Percent Auto 1.6 % (2-4); Hemoglobin 13.8 g/dL (12.0-16.0); Lymphocytes Absolute Auto 2100 /uL (1100-4500); Lymphocytes Percent Auto 26.7 % (25-40); Mean Corpuscular HGB Conc 33.6 % (30-36); Mean Corpuscular Hemoglobin 33.8 PG (26-34); Mean Corpuscular Volume 100.6 fL (80-100); Monocytes Absolute Auto 600 /uL (0-900); Monocytes Percent Auto 7.8 % (3-14); Neutrophils Absolute Auto 5000 /uL (1500-7000); Neutrophils Percent Auto 63.1 % (50-75); Platelet Count 260 X10^3/uL (150-400); Red Blood Cell Count 4.08 X10^6/uL (4.0-5.2); White Blood Cell Count 7.9 X10^3/uL (4.5-11.0)
[2022-09-11 11:20] LABS: Hemoglobin A1C% w Est Avg Glu 5.7 % (4.0-6.0)
[2022-09-11 11:24] LABS: BUN Creatinine Ratio 30.2 (6-22); Blood Urea Nitrogen 19 mg/dL (7-17); Calcium 9.2 mg/dL (8.4-10.2); Carbon Dioxide 26 mmol/L (22-32); Chloride 101 mmol/L (98-107); Estimated Glomerular Filt Rate > 60 mL/min (>60); Glucose 90 mg/dL (80-110); HEMOLYSIS < 15 (0-50); Sodium 139 mmol/L (137-145)
== END ==
PROVIDERS: PCP Nurse Practitioner; Referring Provider Orthopaedic Surgery Orthopaedic Surgery of the Spine; Visit Provider Orthopaedic Surgery Orthopaedic Surgery of the Spine
DX: Z01.818 Encounter for other preprocedural examination (principal); R73.9 Hyperglycemia, unspecified; Z01.812 Encounter for preprocedural laboratory examination
CPT/HCPCS: 36415; 80048; 83036; 85025; 93005

== ENCOUNTER → 2022-10-05 15:09 | Outpatient (CLI) | payer MEDICARE, OTHER, SELFPAY ==
[2022-01-02 13:07] VITALS: BMI 38.6
--- NOTE | 2022-10-05 15:10 | DI.MRI.S_ITS ---
BREAST MRI OF THE RIGHT BREAST: 10/05/2022 CLINICAL: Breast cancer. TECHNIQUE: The patient was placed prone in a dedicated breast imaging coil. Precontrast axial STIR and 3D FLASH without fat saturation sequences were obtained. Both before and after bolus injection of contrast, sequential 1-minute axial 3D FLASH with fat saturation sequences for 3 time points, with subtraction images and maximum intensity projections (MIP's) generated. Delayed sagittal FLASH images with fat saturation were also obtained. Computer-aided detection, including computer algorithm analysis of MRI image data for lesion detection and characterization, pharmacokinetic analysis, with further physician review for interpretation, was performed. COMPARISON: [facility], MR, MR BREAST BI WO/W CON, 08/07/2019, 8:17. FINDINGS: Image quality: Excellent. There is minimal background parenchymal enhancement. Right breast: Patient is status post right partial mastectomy. Surgical scar is present deep to the nipple and there is nipple retraction. Skin thickening is noted along the medial aspect of the breast suggesting radiation change. No suspicious enhancement. No suspicious mass lesions. Left breast: No suspicious mass lesions or enhancement of the left breast. Miscellaneous: No axillary adenopathy. No intramammary adenopathy. Limited visualization of the heart, mediastinum, lungs, and upper abdomen are unremarkable. IMPRESSION: BENIGN 1. Postoperative changes and probable radiation change of the right breast. 2. No suspicious MRI findings to correlate with the patient's right breast pain. Return to annual mammogram screening schedule is recommended. Clinical followup is recommended. This exam was interpreted at Station ID: [id number]. Electronically Signed By: Apurva Gilbert M.D. lk/:10/18/2022 12:40:38 copy to: VIET LAM copy to: [facility] GONSALVES [facility], ph: [phone], fax: [phone] letter sent: Clinical Evaluation ACR BI-RADS Category 2: Benign Finding(s) 3345H
== END ==
PROVIDERS: PCP Nurse Practitioner; Referring Provider Nurse Practitioner; Visit Provider Nurse Practitioner
DX: C50.411 Malignant neoplasm of upper-outer quadrant of right female breast (principal); N64.4 Mastodynia; Z17.0 Estrogen receptor positive status [ER+]
CPT/HCPCS: 77049; A9579

== ENCOUNTER → 2022-11-14 09:24 | Outpatient (CLI) | payer MEDICARE, OTHER, SELFPAY ==
[2022-01-02 13:07] VITALS: BMI 38.6
[2022-11-14 10:30] LABS: Add Manual Diff / Slide Review NO; Basophils Absolute Auto 0 /uL (0-100); Basophils Percent Auto 0.6 % (0-2); Eosinophils Absolute Auto 100 /uL (0-450); Eosinophils Percent Auto 1.4 % (2-4); Hematocrit 39.9 % (36-46); Hemoglobin 13.5 g/dL (12.0-16.0); Lymphocytes Absolute Auto 1500 /uL (1100-4500); Lymphocytes Percent Auto 25.7 % (25-40); Mean Corpuscular HGB Conc 33.9 % (30-36); Mean Corpuscular Hemoglobin 34.1 PG (26-34); Mean Corpuscular Volume 100.5 fL (80-100); Monocytes Absolute Auto 500 /uL (0-900); Monocytes Percent Auto 8.1 % (3-14); Neutrophils Absolute Auto 3800 /uL (1500-7000); Neutrophils Percent Auto 64.2 % (50-75); Platelet Count 265 X10^3/uL (150-400); Red Blood Cell Count 3.97 X10^6/uL (4.0-5.2); Red Cell Distribution Width 14.2 % (11.6-14.8); White Blood Cell Count 5.9 X10^3/uL (4.5-11.0)
[2022-11-14 11:06] LABS: BUN Creatinine Ratio 17.4 (6-22); Blood Urea Nitrogen 12 mg/dL (7-17); Calcium 8.7 mg/dL (8.4-10.2); Carbon Dioxide 25 mmol/L (22-32); Chloride 100 mmol/L (98-107); Cholesterol 145 mg/dL (140-199); Estimated Glomerular Filt Rate > 60 mL/min (>60); Glucose 108 mg/dL (80-110); HDL Cholesterol 53 mg/dL (40-60); HEMOLYSIS < 15 (0-50); LDL Cholesterol Calculated 62 mg/dL (<100); Potassium 3.9 mmol/L (3.4-5.1); Sodium 136 mmol/L (137-145); Triglycerides 152 mg/dL (35-150)
== END ==
PROVIDERS: PCP Nurse Practitioner; Referring Provider Internal Medicine Cardiovascular Disease; Visit Provider Internal Medicine Cardiovascular Disease
DX: E78.5 Hyperlipidemia, unspecified (principal); I49.3 Ventricular premature depolarization
CPT/HCPCS: 36415; 80048; 80061; 85025

== ENCOUNTER → 2023-05-07 11:54 | Outpatient (CLI) | payer MEDICARE, OTHER, SELFPAY ==
[2022-01-02 13:07] VITALS: BMI 38.6
--- NOTE | 2023-05-07 11:57 | DI.RAD.S_ITS ---
PROCEDURE: XR WRIST RT MIN 3V INDICATIONS: assess wrist for arthritis, crystals - lateral red, hot TECHNIQUE: Four views of the right wrist were acquired. COMPARISON: [facility], CR, XR WRIST LT MIN 3V, 03/15/2022, 10:02. FINDINGS: Bones: Generalized osteopenia. Osseous irregularity is seen along the ulnar aspect of the wrist involving the triquetrum, possibly related to trauma or osseous erosions, but not well evaluated due to superimposed osseous structures on all views. Moderate to severe degenerative changes are seen at the 1st carpometacarpal joint and the triscaphe joint. Scaphoid view: No scaphoid fracture. Soft tissues: Chondrocalcinosis. IMPRESSION: 1. Irregular appearance of the triquetrum may be related to prior trauma or osseous erosion, but is not well evaluated due to overlapping osseous structures. MRI or CT could be performed for further evaluation if indicated clinically. 2. Osteoarthrosis, most notably at the 1st carpometacarpal joint and triscaphe joint. 3. Chondrocalcinosis. Differential diagnosis includes but is not limited to CPPD, hyperparathyroidism, and hemochromatosis. Approved by: Jose Reed M.D. on 05/07/2023 at 15:34
[2023-05-07 13:28] LABS: Add Manual Diff / Slide Review NO; Basophils Absolute Auto 100 /uL (0-100); Basophils Percent Auto 0.6 % (0-2); Eosinophils Absolute Auto 100 /uL (0-450); Eosinophils Percent Auto 0.7 % (2-4); Hematocrit 41.4 % (36-46); Hemoglobin 13.9 g/dL (12.0-16.0); Lymphocytes Absolute Auto 1900 /uL (1100-4500); Lymphocytes Percent Auto 20.9 % (25-40); Mean Corpuscular HGB Conc 33.6 % (30-36); Mean Corpuscular Volume 101.1 fL (80-100); Monocytes Absolute Auto 700 /uL (0-900); Monocytes Percent Auto 8.1 % (3-14); Neutrophils Absolute Auto 6400 /uL (1500-7000); Neutrophils Percent Auto 69.7 % (50-75); Platelet Count 264 X10^3/uL (150-400); Red Cell Distribution Width 14.6 % (11.6-14.8); White Blood Cell Count 9.1 X10^3/uL (4.5-11.0)
[2023-05-07 13:50] LABS: Alanine Aminotransferase 19 IU/L (<35); Albumin 4.5 g/dL (3.5-5.0); Albumin Globulin Ratio 1.3 (1.0-2.8); Alkaline Phosphatase 76 U/L (38-126); Aspartate Aminotransferase 24 IU/L (14-36); BUN Creatinine Ratio 13.2 (6-22); Bilirubin Total 0.9 mg/dL (0.2-1.3); Blood Urea Nitrogen 9 mg/dL (7-17); C-Reactive Protein Quant 1.1 mg/dL (<1.0); Calcium 9.4 mg/dL (8.4-10.2); Carbon Dioxide 25 mmol/L (22-32); Chloride 100 mmol/L (98-107); Estimated Glomerular Filt Rate > 60 mL/min (>60); Globulin 3.4 g/dL (1.7-4.1); Glucose 95 mg/dL (80-110); HEMOLYSIS < 15 (0-50); Potassium 3.8 mmol/L (3.4-5.1); Sodium 135 mmol/L (137-145); Total Protein 7.9 g/dL (6.3-8.2)
[2023-05-07 13:52] LABS: Erythrocyte Sedimentation Rate 24 MM/HR (0-20)
[2023-05-07 14:20] LABS: TSH w/ Reflex to FT4 5.19 uIU/mL (0.47-4.68)
[2023-05-07 15:04] LABS: Free T4, Direct Thyroxine 1.22 ng/dL (0.78-2.19)
== END ==
PROVIDERS: PCP Nurse Practitioner; Referring Provider Pediatrics; Visit Provider Pediatrics
DX: M19.031 Primary osteoarthritis, right wrist (principal); M11.231 Other chondrocalcinosis, right wrist; M25.531 Pain in right wrist; E78.00 Pure hypercholesterolemia, unspecified; M18.11 Unilateral primary osteoarthritis of first carpometacarpal joint, right hand; G47.00 Insomnia, unspecified; G89.29 Other chronic pain; I10 Essential (primary) hypertension; Z87.39 Personal history of other diseases of the musculoskeletal system and connective tissue; Z98.890 Other specified postprocedural states
CPT/HCPCS: 36415; 73110; 80053; 84439; 84443; 85025; 85651; 86140

== ENCOUNTER → 2023-09-23 12:50 | Outpatient (CLI) | payer MEDICARE, OTHER, SELFPAY ==
[2023-09-06 15:09] VITALS: BMI 38.6
--- NOTE | 2023-09-23 12:54 | DI.CT.S_ITS ---
PROCEDURE: CT LUNG LOW DOSE SCREENING INDICATIONS: 1 ppd smoking history, quit 2017 TECHNIQUE: Noncontrast 2.0-2.5 mm thick sections acquired from the pulmonary apices to the posterior costophrenic angles. 7 mm thick axial MIP, and 5 mm coronal and sagittal reformats were then acquired. For radiation dose reduction, the following was used: automated exposure control, adjustment of mA and/or kV according to patient size. COMPARISON: [facility], CT, CT CHEST WO CON, 11/15/2020, 13:46. [facility], CT, CT CHEST WO CON, 04/13/2022, 11:37. FINDINGS: Image quality: Diagnostic. Lower Neck: No enlarged lymph nodes. Thyroid: No thyroid nodules which require sonographic follow up, per consensus guidelines. Axillae: No enlarged lymph nodes. Right axillary clips are seen. Chest Wall: Right breast postoperative change Bones: Age-appropriate bony degenerative changes are seen. Mild dextroconvex scoliotic curvature is seen. There is a remote appearing T10 anterior wedge deformity, stable from 2021. Lungs and Pleura: No pneumothorax or pleural effusions. No consolidation or suspicious nodules. Heart: Heart size is normal. No pericardial effusion. At least moderate coronary artery calcification is seen. Thoracic Vessels: The aorta and pulmonary arteries demonstrate normal size. Atherosclerotic calcification is noted. Mediastinum and Donna: No enlarged lymph nodes. Esophagus: No wall thickening. No hiatal hernia. Upper Abdomen: Visualized upper abdomen solid organs and bowel loops appear normal. IMPRESSION: No suspicious pulmonary nodules. LUNG-RADS 1; continued annual screening, if eligible. Clinically Significant Non-pulmonary Findings: Right axillary clips Right breast postoperative change At least moderate coronary artery calcification Remote, stable T10 anterior wedge deformity Dictated by: Benjamin Marquez M.D. on 09/23/2023 at 14:39 Approved by: Benjamin Marquez M.D. on 09/23/2023 at 14:41
== END ==
LOC: CT 12:51
PROVIDERS: PCP Nurse Practitioner; Referring Provider Nurse Practitioner; Visit Provider Nurse Practitioner
DX: Z87.891 Personal history of nicotine dependence (principal); Z12.2 Encounter for screening for malignant neoplasm of respiratory organs
CPT/HCPCS: 71271

== ENCOUNTER → 2023-10-08 11:00 | Outpatient (CLI) | payer MEDICARE, OTHER, SELFPAY ==
[2023-09-06 15:09] VITALS: BMI 38.6
--- NOTE | 2023-10-08 11:04 | DI.MG.S_ITS ---
BILATERAL DIGITAL SCREENING MAMMOGRAM 3D/2D WITH CAD POST LUMPECTOMY: 10/08/2023 CLINICAL: Routine screening. Personal history of right breast cancer. Family history of breast cancer. Comparison is made to exams dated: 09/20/2021 mammogram, 09/19/2020 mammogram - [facility], and 10/01/2022 mammogram - [facility]. There are scattered areas of fibroglandular density in both breasts (category b / 25%-50% glandular tissue). Current study was also evaluated with a Computer Aided Detection (CAD) system. There are benign vascular calcifications in the left breast. There also are benign post operative findings in the right breast. No significant masses, calcifications, or other findings are seen in either breast. There has been no significant interval change. IMPRESSION: BENIGN There is no mammographic evidence of malignancy. A 1 year screening mammogram is recommended. This exam was interpreted at Station ID: [id number]. NOTE: For mammograms, a report in lay terms will be sent to the patient. Approximately 15% of breast malignancies will not be visualized mammographically. In the management of a palpable breast mass, a negative mammogram must not discourage biopsy of a clinically suspicious lesion. Electronically Signed By: Apurva briggs/aleida:10/08/2023 16:35:50 copy to: VIET LAM copy to: [facility]ONS[facility]VES [facility], ph: [phone], fax: [phone] letter sent: Normal Exam ACR BI-RADS Category 2: Benign Finding(s) 3342F
== END ==
PROVIDERS: PCP Nurse Practitioner; Referring Provider Internal Medicine Hematology & Oncology; Visit Provider Internal Medicine Hematology & Oncology
DX: Z12.31 Encounter for screening mammogram for malignant neoplasm of breast (principal); Z85.3 Personal history of malignant neoplasm of breast; Z80.3 Family history of malignant neoplasm of breast; R92.323 Mammographic fibroglandular density, bilateral breasts
CPT/HCPCS: 77063; 77067

== ENCOUNTER → 2023-10-14 10:23 | Outpatient (CLI) | payer MEDICARE, OTHER, SELFPAY ==
[2023-09-06 15:09] VITALS: BMI 38.6
[2023-10-14 11:08] LABS: Add Manual Diff / Slide Review NO; Basophils Absolute Auto 0 /uL (0-100); Basophils Percent Auto 0.7 % (0-2); Eosinophils Absolute Auto 100 /uL (0-450); Eosinophils Percent Auto 1.5 % (2-4); Hematocrit 39.5 % (36-46); Hemoglobin 13.3 g/dL (12.0-16.0); Lymphocytes Absolute Auto 1800 /uL (1100-4500); Lymphocytes Percent Auto 27.1 % (25-40); Mean Corpuscular HGB Conc 33.6 % (30-36); Mean Corpuscular Hemoglobin 33.3 PG (26-34); Monocytes Absolute Auto 700 /uL (0-900); Monocytes Percent Auto 10.3 % (3-14); Neutrophils Absolute Auto 4000 /uL (1500-7000); Neutrophils Percent Auto 60.4 % (50-75); Platelet Count 251 X10^3/uL (150-400); Red Blood Cell Count 3.99 X10^6/uL (4.0-5.2); Red Cell Distribution Width 15.3 % (11.6-14.8); White Blood Cell Count 6.7 X10^3/uL (4.5-11.0)
[2023-10-14 11:39] LABS: BUN Creatinine Ratio 16.7 (6-22); Blood Urea Nitrogen 13 mg/dL (7-17); Calcium 9.3 mg/dL (8.4-10.2); Carbon Dioxide 25 mmol/L (22-32); Chloride 102 mmol/L (98-107); Cholesterol 144 mg/dL (140-199); Estimated Glomerular Filt Rate > 60 mL/min (>60); Glucose 100 mg/dL (80-110); HDL Cholesterol 54 mg/dL (40-60); HEMOLYSIS < 15 (0-50); LDL Cholesterol Calculated 68 mg/dL (<100); Potassium 4.2 mmol/L (3.4-5.1); Sodium 136 mmol/L (137-145); Triglycerides 108 mg/dL (35-150)
== END ==
LOC: LAB 10:25
PROVIDERS: PCP Nurse Practitioner; Referring Provider Internal Medicine Cardiovascular Disease; Visit Provider Internal Medicine Cardiovascular Disease
DX: R00.2 Palpitations (principal); E78.5 Hyperlipidemia, unspecified
CPT/HCPCS: 36415; 80048; 80061; 85025

== ENCOUNTER 2023-10-16 12:12 | Day surgery (SDC) | payer MEDICARE, OTHER, SELFPAY ==
[2023-09-06 15:09] VITALS: BMI 38.6
--- NOTE | 2023-10-15 08:57 | PM.PREOP ---
Pre-operative Note Interval Note History & Physical reviewed/Exam performed by Physician: Yes Changes to H&P: No
[2023-10-16] VITALS (9 sets, daily range): BP systolic 123–188; BP diastolic 48–85; PULSE 59–96; RESP 11–24; TEMP 35.9–36.9; O2SAT 93–98; BMI 40.6
--- NOTE | 2023-10-16 | PATH_ITS ---
[facility] Accession Number: [id number] No. of containers..01 Tissue . 01 Material submitted: . gallbladder - GALLBLADDER . 01 Diagnosis: GALLBLADDER, CHOLECYSTECTOMY: Mild, chronic cholecystitis and cholesterolosis. Negative for dysplasia and malignancy. MRV 10/23/2023 1049 Local . 01 Electronically signed: . Jun Kong MD, Pathologist NPI- [id number] . 01 Gross description: . The specimen is received in formalin labeled with the patient's name, , and gallbladder, and consists of an intact gallbladder measuring 6.5 x 3.6 x 3.5 cm, with an unremarkable external surface. The cystic duct margin is inked blue, and no pericystic lymph node is identified. The lumen contains dark green viscous bile with no calculi identified in the lumen or the container. The mucosa is green and velvety with yellow areas of discoloration and no polyps or lesions identified. The rodriguez average 0.2 cm thick. Gate Agent sections to include the cystic duct margin and full thickness sections are submitted in cassette A1. ([id number]) /MRV 10/18/2023 1354 Local . 01 Pathologist provided ICD-10: K82.8, K81.1 . 01 CPT . 915932 Specimen Comment: A courtesy copy of this report has been sent to [phone] Performed at: [facility] [address] [place] [address], [place], [place] [id number] MD Chirag aMtta MD Phone: [phone]
[2023-10-16] MEDS: LACTATED RINGERS 1,000 ML 21 ML IV (12:46)
--- NOTE | 2023-10-16 13:24 | PM.PREOP ---
Pre-operative Note Interval Note History & Physical reviewed/Exam performed by Physician: Yes Changes to H&P: No
[2023-10-16] MEDS: CEFAZOLIN 2 GM/100 ML PREMIX 100 ML IV (14:05)
--- NOTE | 2023-10-16 14:13 | SUR.OPER ---
Supine on padded OR bed, head on pillow, right arm secured on padded arm board at <90 degrees abduction, left arm tucked with blue pad at side, legs uncrossed, safety belt at thigh, footboard in place, tape over blanket over lower legs.
[2023-10-16] MEDS: BUPIVACAINE 0.25% (PF) VIAL 60 ML INJ (14:21)
--- NOTE | 2023-10-16 15:07 | P.OP_ITS ---
Operative Date/Time/Diagnoses Date of procedure: 10/16/23 Time of procedure: 15:07 Pre-op diagnosis: Biliary dyskinesia Post-op diagnosis: same Procedure & Clinicians Procedure: Laparoscopic cholecystectomy Same procedure as scheduled: Yes Indications: 78-year-old woman symptoms and HIDA consistent with biliary dyskinesia here for elective cholecystectomy Surgeon: Ortega Malave Anesthesia Type: General Operative Notes Findings: Unremarkable gallbladder. Critical view of safety established. Specimen(s): other (Gallbladder) Estimated Blood Loss (mL): 20 Procedure in detail: The patient was placed supine on the table and bilateral lower extremity compression devices were applied. Anesthesia was induced they were intubated with an endotracheal tube and received 2g of Ancef. A time-out was performed. They were prepped and draped in sterile fashion. An infraumbilical incision was made. The fascia was elevated incised and the abdomen was entered atraumatically. A blunt tip 12mm balloon trocar was then inserted, pneumoperitoneum was established and inspection of the abdomen demonstrated no evidence of injury. They were placed head up and right side up and then a 11 mm port was placed high in the epigastrium and two 5mm in the right upper quadrant. The gallbladder was grasped by the fundus and retracted over the liver and retracted laterally by the infundibulum. Using electrocautery the lateral plane between the gallbladder and the liver was opened towards the fundus. The gallbladder was then retracted laterally and the medial plane was developed in the same manner. With the gallbladder mobilized the bottom of the cystic plate was visualized. The hepatocystic triangle was meticulosly skeletonized with blunt dissection of fat and fibrous tissue from both the front and the back. Only two structures were then clearly seen entering the gallbladder the cystic duct and the cystic artery. With the critical view of safety fully established the cystic duct was clipped twice proximally and once distally using the 10 mm Weck hemoclip applied under direct visualization and then sharply divided. The cystic artery was divided in the same fashion. The gallbladder was removed from the liver bed using electro cautery. The liver bed was then inspected for hemostasis and this was achieved. The specimen was removed using Endo-Catch. The abdomen was desufflated. The umbilical fascia was closed with 0 Vicryl in a poblnv-xx-hjqju fashion under direct visualization. Skin incisions were irr igated and closed with 4-0 Monocryl. 30 ml of 0.25% bupivacaine was infiltrated into the subcutaneous tissue of the incisions. The wounds were sealed with Dermabond. Patient emerged from anesthesia was extubated and transferred to recovery in stable condition. The sponge and instrument count at the end of the operation was correct. Complications: none Post-operative Condition: stable Disposition: same day surgery
[2023-10-16] MEDS: OXYCODONE IR 5 MG TABLET PO (15:19)
[2023-10-16] MEDS: ONDANSETRON 4 MG/2 ML INJ IV (15:19)
[2023-10-16] MEDS: HYDROMORPHONE 1 MG INJ IV ×2 (15:30→15:43)
== END 2023-10-16 16:44 | disposition home or self-care (01) ==
PROVIDERS: PCP Nurse Practitioner; Referring Provider Surgery; Visit Provider Surgery
PROC: 0FT44ZZ Resection of Gallbladder, Percutaneous Endoscopic Approach (ICD-10-PCS; CPT 47562; principal; 2023-10-16 14:00)
DX: K81.1 Chronic cholecystitis (principal)
CPT/HCPCS: 47562; 82962; 93005; J0360; J0690; J1100; J1170; J2250; J2405; J2704; J3010; J3490

== ENCOUNTER → 2023-12-12 09:23 | Outpatient (CLI) | payer MEDICARE, OTHER, SELFPAY ==
[2023-09-06 15:09] VITALS: BMI 38.6
--- NOTE | 2023-12-12 09:24 | DI.ECHO.S_ITS ---
[facility] : : [address] : : [place] : : [id number] : : Phone: [phone] Echocardiogram Report + + :Name: NATALEE AGGARWAL Study Date: 12/12/2023 Height: 64 in : :[facility] ReadingLocation: Weight: 227 lb: : Gender: Female BSA: 2.1 m2 : :: 1945 Age: 78 yrs : :Reason For Study: VENTRICULAR PREMATURE DEPOLARIZATION : :Ordering Physician: BRINA, : :QUAN Performed By: Alexandre Clinton : :Referring: QUAN PATTERSON : + + Interpretation Summary 1) Mildly increased left ventricular thickness (concentric) with normal size, normal wall motion, and normal systolic function (EF 55-60%). 2) Normal right ventricular size and function. 3) No significant valvular abnormalities. 4) Compared to the Echo done 10/30/2018, no significant change. Procedure: A two-dimensional transthoracic echocardiogram with color flow and Doppler was performed. The study quality was technically adequate. Comparison is made with the echocardiogram of 10/30/2018. The heart rate ranged between 64-73 bpm during the study. Left Ventricle: The left ventricle is normal in size. There is mild concentric left ventricular hypertrophy. The ejection fraction is estimated to be 55-60%. Left ventricular systolic function appears normal without focal wall motion abnormalities. Diastolic function could not be accurately assessed due to contradictory data. Right Ventricle: The right ventricle is normal size. The right ventricular systolic function is normal. Atria: The left atrial size is normal. Right atrial size is normal. The interatrial septum grossly appears intact with no obvious evidence for an atrial septal defect. Mitral Valve: The mitral valve is normal in structure and function. There is no mitral valve stenosis. There is mild mitral regurgitation. Aortic Valve: The aortic valve is grossly normal. There is no aortic valve stenosis. No aortic regurgitation is present. Tricuspid Valve: The tricuspid valve is normal in structure and function. There is no tricuspid stenosis. No tricuspid regurgitation. Pulmonic Valve: The pulmonic valve is not well visualized. There is no pulmonic valvular stenosis. There is no pulmonic valvular regurgitation. Great Vessels: The aortic root is normal size. The ascending aorta is mildly enlarged. The IVC is of normal diameter and collapses greater than 50% with a sniff. This suggests a low right atrial pressure of 3 mm Hg. Pericardium/ Pleura There is no pericardial effusion. There is no pleural effusion. MMode/2D Measurements & Calculations LVIDd: 4.8 cm LVOT diam: 2.1 cm LVIDs: 2.6 cm Ao root diam: 3.7 cm FS: 45.1 % asc Aorta Diam: 3.9 cm IVSd: 1.3 cm Ao Arch Diam (Prox Trans): 2.4 cm LVPWd: 1.2 cm LV chamberlain. diameter/BSA (cm/m^2): 2.3 LV sys. diameter/BSA (cm/m^2): 1.3 LA A2 area: 19.5 cm2 RA long axis: 4.9 cm LA A4 area: 17.8 cm2 RA area: 16.2 cm2 LA length (vol): 5.4 cm RA vol: 45.6 ml LA vol: 54.6 ml RA : 22.1 ml/m2 LA vol index: 26.5 ml/m2 IVC diam: 1.6 cm RVD1 (basal): 2.9 cm RVD2 (mid): 2.7 cm TAPSE: 2.2 cm Doppler Measurements & Calculations Ao V2 max: 104.9 cm/sec LVOT Max Davide: 96.2 cm/sec Ao V2 mean: 72.9 cm/sec LV V1 max P.8 mmHg Ao max P.6 mmHg LV V1 VTI: 21.8 cm Ao mean P.0 mmHg KAIDEN(I,D): 3.3 cm2 Ao V2 VTI: 23.3 cm KAIDEN(V,D): 3.3 cm2 sev ratio: 0.93 KAIDEN indexed to BSA (cm^2/m^2): 1.6 MV E max davide: 81.4 cm/sec PA V2 max: 121.4 cm/sec MV A max davide: 107.8 cm/sec PA V2 mean: 90.9 cm/sec MV E/A: 0.76 PA mean P.6 mmHg Med Peak E' Davide: 4.2 cm/sec PA pr(Accel): 25.9 mmHg E/E' med: 19.6 Lat Peak E' Davide: 7.1 cm/sec E/E' lat: 11.5 E/e' average: 15.6 MV dec time: 0.17 sec SV(LVOT): 77.7 ml Reading Physician:11:35 AM
== END ==
PROVIDERS: PCP Nurse Practitioner; Referring Provider Internal Medicine Cardiovascular Disease; Visit Provider Internal Medicine Cardiovascular Disease
DX: I34.0 Nonrheumatic mitral (valve) insufficiency (principal); I49.3 Ventricular premature depolarization; I77.89 Other specified disorders of arteries and arterioles
CPT/HCPCS: 93306

== ENCOUNTER → 2024-02-14 13:26 | Outpatient (CLI) | payer MEDICARE, OTHER, SELFPAY ==
[2023-09-06 15:09] VITALS: BMI 38.6
--- NOTE | 2024-02-14 13:30 | DI.MG.S_ITS ---
UNILATERAL LEFT DIGITAL DIAGNOSTIC MAMMOGRAM 3D/2D: 02/14/2024 CLINICAL: Left breast mass. Comparison is made to exams dated: 10/08/2023 mammogram, 10/05/2022 breast MRI - [facility], and 10/01/2022 mammogram - [facility]. There are scattered areas of fibroglandular density in the left breast (category b / 25%-50% glandular tissue). No significant masses, calcifications, or other findings are seen in the breast. IMPRESSION: INCOMPLETE: NEEDS ADDITIONAL IMAGING EVALUATION There is no abnormality seen in the left breast or in the left axilla to correspond with the area of clinical concern and palpable abnormality described by the patient, however, ultrasound is recommended for further evaluation and is scheduled to immediately follow this examination. This exam was interpreted at Station ID: [id number]. NOTE: For mammograms, a report in lay terms will be sent to the patient. Approximately 15% of breast malignancies will not be visualized mammographically. In the management of a palpable breast mass, a negative mammogram must not discourage biopsy of a clinically suspicious lesion. Electronically Signed By: Perez Montoya M.D. aty/:02/14/2024 14:10:31 copy to: VIET LAM copy to: MITCH GONSALVES [facility], ph: [phone], fax: [phone] ACR BI-RADS Category 0: Incomplete 3340F
--- NOTE | 2024-02-14 13:30 | DI.US.S_ITS ---
LIMITED ULTRASOUND OF LEFT BREAST: 02/14/2024 CLINICAL: Palpable left breast lump. Comparison is made to exams dated: 02/14/2024 mammogram, 10/08/2023 mammogram, and 10/05/2022 breast MRI - [facility]. Color flow, real-time, and continuous wave Doppler ultrasound of the left breast 2 o'clock region were performed. There is a 0.6 cm x 0.4 cm normal lymph node in the left breast at 2 o'clock posterior depth 20 cm from the nipple. This normal lymph node is hypoechoic with fatty hilum. This correlates as palpated, to the reported pain, and with area of clinical concern. No significant abnormalities were seen sonographically in the left breast. IMPRESSION: BENIGN There is no sonographic evidence of malignancy. The 0.6 cm x 0.4 cm normal lymph node in the left breast is consistent with a lymph node and is benign. This correlated with area of palpable concern. Recommend clinical follow up for persistent or worsening symptoms, or development of any clinically suspicious findings. A 1 year screening mammogram is recommended. Findings and recommendations were conveyed to the patient during today's evaluation. This exam was interpreted at Station ID: [id number]. Electronically Signed By: Perez Montoya M.D. aty/:02/14/2024 14:54:36 copy to: VIET LAM copy to: [facility] GONSALVES [facility], ph: [phone], fax: [phone] letter sent: Clinical Evaluation Ultrasound BI-RADS: 2 Benign
== END ==
PROVIDERS: PCP Nurse Practitioner; Referring Provider Nurse Practitioner; Visit Provider Nurse Practitioner
DX: R92.2 Inconclusive mammogram (principal); N63.20 Unspecified lump in the left breast, unspecified quadrant; N64.4 Mastodynia; R92.322 Mammographic fibroglandular density, left breast
CPT/HCPCS: 76642; 77065; G0279

== ENCOUNTER → 2024-02-18 12:45 | Outpatient (CLI) | payer MEDICARE, OTHER, SELFPAY ==
[2023-09-06 15:09] VITALS: BMI 38.6
--- NOTE | 2024-02-18 12:46 | DI.US.S_ITS ---
PROCEDURE: US EXTREMITY NONVASC LOWER RT INDICATIONS: RIGHT THIGH LUMPS TECHNIQUE: Real-time scanning was performed of the right thigh, with image documentation. COMPARISON: [facility], , US EXTREMITY NONVASC LOWER LT, 02/18/2024, 12:58. FINDINGS: Ultrasound examination of medial aspect distal right thigh at patient's reported area of palpable lump shows no discrete soft tissue mass or fluid collection. IMPRESSION: No abnormality is seen in medial distal right thigh. Dictated by: Chino Nelson M.D. on 02/18/2024 at 15:29 Approved by: Chino Nelson M.D. on 02/18/2024 at 15:30
--- NOTE | 2024-02-18 12:46 | DI.US.S_ITS ---
PROCEDURE: US EXTREMITY NONVASC LOWER LT INDICATIONS: LEFT THIGH LUMPS TECHNIQUE: Real-time scanning was performed of the left thigh, with image documentation. COMPARISON: None. FINDINGS: Focused ultrasound examination of medial aspect of lower thigh at patient's reported area of palpable lump shows no discrete soft tissue mass or drainable fluid collection. IMPRESSION: No abnormality is seen in left thigh at patient's reported area of palpable lump. Dictated by: Chino Nelson M.D. on 02/18/2024 at 15:23 Approved by: Chino Nelson M.D. on 02/18/2024 at 15:29
== END ==
PROVIDERS: PCP Nurse Practitioner; Referring Provider Nurse Practitioner; Visit Provider Nurse Practitioner
DX: R22.43 Localized swelling, mass and lump, lower limb, bilateral (principal)
CPT/HCPCS: 76882

== ENCOUNTER → 2024-06-16 09:45 | Outpatient (CLI) | payer MEDICARE, OTHER, SELFPAY ==
[2023-09-06 15:09] VITALS: BMI 38.6
[2024-06-18 18:07] LABS: H. Pylori Antigen Stool Negative (Negative)
== END ==
PROVIDERS: PCP Family Medicine; Referring Provider Physician Assistant; Visit Provider Physician Assistant
DX: K29.70 Gastritis, unspecified, without bleeding (principal); B96.81 Helicobacter pylori [H. pylori] as the cause of diseases classified elsewhere
CPT/HCPCS: 87338

== ENCOUNTER → 2024-06-24 11:35 | Outpatient (CLI) | payer MEDICARE, OTHER, SELFPAY ==
[2023-09-06 15:09] VITALS: BMI 38.6
--- NOTE | 2024-06-24 11:37 | DI.RAD.S_ITS ---
PROCEDURE: XR DEXA AXIAL SKELETON INDICATIONS: osteoporosis COMPARISON: [facility], CR, XR DEXA AXIAL SKELETON, 06/05/2022, 15:23. FINDINGS: Lumbar Spine: Bone mineral density 1.0 g/cm2, T score -0.4, compared to -0.8. Left Hip: Bone mineral density 0.680 g/cm2, T score -2.2 compared to -2.1. Left Femoral Neck: Bone mineral density 0.595 g/cm2, T score -2.3, compared to -2.6. Right Hip: Bone mineral density 0.611 g/cm2, T score -2.7 compared to -2.4. Right Femoral Neck: Bone mineral density 0.567 g/cm2, T score -2.5 compared to -2.1. Fracture Risk Calculation (when applicable): 10-year fracture risk of a major osteoporotic fracture 48 percent and of a hip fracture 33 percent. (T score greater or equal to -1.0 to: NORMAL) (T score from -1.1 to -2.4: OSTEOPENIA) (T score less than or equal to -2.5: OSTEOPOROSIS) IMPRESSION: Progressive bone mineral density loss now osteoporotic in the right hip and femoral neck with severe osteopenia in the left hip and left femoral neck. Follow-up guidelines as follows: Osteoporosis: Consider a repeat DEXA and Vertebral Fracture Assessment (VFA) exam in 2 years or sooner if medically necessary, to reassess this patient's status. Osteopenia: Consider a repeat DEXA in 2-3 years to reassess this patient's status, or if there is a new clinical indication. Normal: Consider a repeat DEXA in 5 years or sooner, or if there is a new clinical indication. All treatment decisions require clinical judgment and consideration of individual patient factors, including patient preferences, comorbidities, previous drug use, risk factors not captured in the FRAX model (e.g., frailty, falls, vitamin D deficiency, increased bone turnover, interval significant decline in bone density ) and possible under- or over-estimation of fracture risk by FRAX. In addition, the NOF Guide recommends that FDA-approved medical therapies be considered in postmenopausal women and men age >= 50 years with a: * Hip or vertebral (clinical or morphometric) fracture * T-score of <=-2.5 at the spine or hip * Ten-year fracture probability by FRAX of >= 3% for hip fracture or >=20% for major osteoporotic fracture. People with diagnosed cases of osteoporosis or at high risk for fracture should have regular bone mineral density tests. For patients eligible for Medicare, routine testing is allowed once every 2 years. The testing frequency can be increased to one year for patients who have rapidly progressing disease, those who are receiving or discontinuing medical therapy to restore bone mass, or have additional risk factors. Dictated by: Kayla Romano M.D. on 06/24/2024 at 16:52 Approved by: Kayla Romano M.D. on 06/24/2024 at 16:54
== END ==
PROVIDERS: PCP Family Medicine; Referring Provider Family Medicine; Visit Provider Family Medicine
DX: M81.0 Age-related osteoporosis without current pathological fracture (principal)
CPT/HCPCS: 77080

== ENCOUNTER → 2024-12-01 11:57 | Outpatient (CLI) | payer MEDICARE, OTHER, SELFPAY ==
[2023-09-06 15:09] VITALS: BMI 38.6
[2024-12-01 12:48] LABS: Hematocrit 41.2 % (36-46); Hemoglobin 13.8 g/dL (12.0-16.0); Mean Corpuscular HGB Conc 33.4 % (30-36); Mean Corpuscular Hemoglobin 34.2 PG (26-34); Mean Corpuscular Volume 102.3 fL (80-100); Platelet Count 259 X10^3/uL (150-400); Red Blood Cell Count 4.03 X10^6/uL (4.0-5.2); White Blood Cell Count 7.7 X10^3/uL (4.5-11.0)
[2024-12-01 13:38] LABS: BUN Creatinine Ratio 18.8 (6-22); Blood Urea Nitrogen 13 mg/dL (7-17); Calcium 9.3 mg/dL (8.4-10.2); Carbon Dioxide 26 mmol/L (22-32); Chloride 101 mmol/L (98-107); Cholesterol 144 mg/dL (140-199); Estimated Glomerular Filt Rate > 60 mL/min (>60); Glucose 94 mg/dL (80-110); HDL Cholesterol 51 mg/dL (40-60); HEMOLYSIS < 15 (0-50); LDL Cholesterol Calculated 69 mg/dL (<100); Potassium 4.3 mmol/L (3.4-5.1); Sodium 137 mmol/L (137-145); Triglycerides 118 mg/dL (35-150)
== END ==
LOC: LAB 11:59
PROVIDERS: PCP Family Medicine; Referring Provider Internal Medicine Cardiovascular Disease; Visit Provider Internal Medicine Cardiovascular Disease
DX: E78.5 Hyperlipidemia, unspecified (principal); I25.10 Atherosclerotic heart disease of native coronary artery without angina pectoris; I25.84 Coronary atherosclerosis due to calcified coronary lesion
CPT/HCPCS: 36415; 80048; 80061; 85027

== ENCOUNTER → 2025-02-15 12:51 | Outpatient (CLI) | payer MEDICARE, OTHER, SELFPAY ==
[2023-09-06 15:09] VITALS: BMI 38.6
--- NOTE | 2025-02-15 12:52 | DI.MG.S_ITS ---
MM screening mammo BI: 02/15/2025. BI-RADS: 2 CLINICAL: 79-year old female for bilateral screening mammogram. No Tyrer-Cuzick risk score calculation due to the patient's personal history of breast cancer. Patient reports a history of right breast carcinoma diagnosed at age 73. Status-post right lumpectomy with hormonal therapy. Current reported family history of breast cancer: mother. The patient reports testing negative for BRCA gene mutation. PRIOR EXAMS 02/14/2024, 10/08/2023, 10/05/2022, 10/01/2022, 09/20/2021, 11/08/2020, 09/19/2020, 03/28/2020, 01/01/2020, 08/14/2019, 08/07/2019, 07/07/2019, 06/17/2019, 12/13/2017, 06/29/2016. MAMMOGRAPHY TECHNIQUE: 2D and 3D (tomosynthesis) digital mammographic views obtained, with additional images as needed for full coverage. Current study was also evaluated with a Computer Aided Detection (CAD) system. DENSITY B. There are scattered areas of fibroglandular density. MAMMOGRAPHY FINDINGS Right: Surgical clips present on the right. Benign-appearing post- surgical changes noted on the right. Typically-benign vascular calcifications also noted. Left: Typically-benign vascular calcifications noted. IMPRESSION: * No evidence of malignancy with benign findings. RECOMMENDATIONS Bilateral * Annual screening mammography. OVERALL ASSESSMENT CATEGORY BI-RADS-2: Benign. The [employer] recommends annual screening mammography beginning at age 40 for women with average risk of breast cancer. ELECTRONICALLY SIGNED: Perez Motnoya M.D. on 02/15/2025 at 05:01:23 PM PT Interpreting Station ID: [id number]
== END ==
LOC: MAMMO 12:51
PROVIDERS: PCP Family Medicine; Referring Provider Family Medicine; Visit Provider Family Medicine
DX: Z12.31 Encounter for screening mammogram for malignant neoplasm of breast (principal); Z85.3 Personal history of malignant neoplasm of breast; Z80.3 Family history of malignant neoplasm of breast
CPT/HCPCS: 77063; 77067

== ENCOUNTER → 2025-08-16 12:38 | Outpatient (CLI) | payer MEDICARE, OTHER, SELFPAY ==
[2023-09-06 15:09] VITALS: BMI 38.6
[2025-08-16 13:33] LABS: Add Manual Diff / Slide Review NO; Hematocrit 41.4 % (36-46); Hemoglobin 13.9 g/dL (12.0-16.0); Lymphocytes Absolute Auto 2100 /uL (1100-4500); Mean Corpuscular HGB Conc 33.5 % (30-36); Mean Corpuscular Hemoglobin 34.0 PG (26-34); Mean Corpuscular Volume 101.5 fL (80-100); Platelet Count 301 X10^3/uL (150-400)
[2025-08-16 13:47] LABS: Blood Urea Nitrogen 13 mg/dL (7-17); Calcium 9.5 mg/dL (8.4-10.2); Carbon Dioxide 33 mmol/L (22-32); Chloride 99 mmol/L (98-107); Estimated Glomerular Filt Rate > 60 mL/min (>60); Glucose 103 mg/dL (70-99); HEMOLYSIS < 15 (0-50); Potassium 4.6 mmol/L (3.4-5.1); Sodium 140 mmol/L (137-145)
== END ==
PROVIDERS: PCP Family Medicine; Referring Provider Internal Medicine Cardiovascular Disease; Visit Provider Internal Medicine Cardiovascular Disease
DX: I49.3 Ventricular premature depolarization (principal)
CPT/HCPCS: 36415; 80048; 85025